=== PATIENT | female | born 1980 | race Caucasian/White ===

== ENCOUNTER 2024-04-13 03:36 | Emergency (ER) | payer OTHER, SELFPAY ==
[2024-04-13 03:41] VITALS: BP 144/96; PULSE 77; O2SAT 100; BMI 62.6
--- NOTE | 2024-04-13 03:56 | ED_ITS ---
HPI - Dizziness General Chief Complaint: Dizziness Stated Complaint: DIZZINESS Time Seen by Provider: 04/13/24 03:46 Source: patient Mode of arrival: Wheelchair History of Present Illness HPI Narrative: past history of vertigo. Woke up this AM with room spinning. finds if she tilts her head to the left the dizzy sensation is not bad. If she straightens her head it worsens. No headache or ear pain. No extremity pain or weakness Related Data Allergies Allergy/AdvReac Type Severity Reaction Status Date / Time Penicillins Allergy Severe Anaphylaxis Verified 04/13/24 03:48 vancomycin AdvReac Intermediate Redness of Verified 04/13/24 03:48 Skin acetaminophen [From [place]] AdvReac Mild Redness of Verified 04/13/24 03:48 Skin hydrocodone [From [place]] AdvReac Mild Redness of Verified 04/13/24 03:48 Skin Review of Systems ROS Status of ROS 10 or more systems reviewed and unremark able except as noted in history and below Exam Constitutional Vital Signs, click to edit/add: Last Vital Signs Pulse 77 04/13/24 03:41 Resp 18 04/13/24 03:41 BP 144/96 H 04/13/24 03:41 Pulse Ox 100 04/13/24 03:41 O2 Del Method Room Air 04/13/24 03:41 Common normals: no apparent distress, average body habitus, oriented x3, no limitations, healthy appearing, alert and well nourished [facility] Common normals: head/scalp atraumatic Other: TMs clear Eye Common normals: conjunctivae normal Respiratory Common normals: normal respiratory effort, no retractions, no use of accessory muscles and clear to auscultation bilaterally Cardio Common normals: regular rate, regular rhythm, S1 normal heart sound and S2 normal heart sound GI Common normals: Normal to inspection, nondistended, normoactive bowel sounds present, soft to palpation and non-tender Extremity Common normals: normal to inspection and full ROM Neuro Common normals: oriented x3, CN's II-XII intact bilaterally, moves all extremities and no focal motor deficits Psych Appearance: grossly normal Course Vital Signs Vital signs: Vital Signs Pulse Rate 77 04/13/24 03:41 Respiratory Rate 18 04/13/24 03:41 Blood Pressure 144/96 H 04/13/24 03:41 Pulse Oximetry 100 04/13/24 03:41 Oxygen Delivery Method Room Air 04/13/24 03:41 Pulse Rate 77 04/13/24 03:41 Respiratory Rate 18 04/13/24 03:41 Blood Pressure 144/96 H 04/13/24 03:41 Pulse Oximetry 100 04/13/24 03:41 Oxygen Delivery Method Room Air 04/13/24 03:41 MDM - Dizziness MDM Narrative Medical decision making narrative: past history of vertigo. Presents with vertiginous symptoms that resolved with treatment in the department. labs acceptable. Patient discharged home with a prescription for antivert Lab Data Labs: Lab Results 04/13/24 Range/Units 04:08 WBC 7.3 (4.0-11.0) 10^3/uL RBC 4.60 (4.20-5.40) 10^6/uL Hgb 12.5 (12.0-16.0) g/dL Hct 38.9 (36.0-48.0) % MCV 84.6 (81.0-99.0) fL MCH 27.2 (26.7-34.0) pg MCHC 32.1 (29.9-35.2) g/dL RDW 13.2 (11.0-15.0) % Plt Count 240 (150-450) 10^3/uL MPV 9.4 L (9.5-13.5) fL Neut % (Auto) 64.1 (43.0-75.0) % Lymph % (Auto) 28.2 (20.5-60.0) % [place] % (Auto) 5.7 (1.7-12.0) % Eos % (Auto) 1.8 (0.9-7.0) % Baso % (Auto) 0.1 L (0.2-2.0) % Neut # (Auto) 4.7 (1.4-6.5) 10^3/uL Lymph # (Auto) 2.1 (1.2-3.8) 10^3/uL [place] # (Auto) 0.4 (0.3-0.8) 10^3/uL Eos # (Auto) 0.1 (0.0-0.7) 10^3/uL Baso # (Auto) 0.0 (0.0-0.1) 10^3/uL Abs Immat Gran (auto) 0.01 (0.00-0.03) 10^3/uL Imm/Tot Granulo (auto) 0.1 (0.0-0.5) % Sodium 139 (136-145) mmol/L Potassium 4.0 (3.5-5.1) mmol/L Chloride 103 (98-107) mmol/L Carbon Dioxide 28.9 (21.0-32.0) mmol/L Anion Gap 11.1 BUN 8.0 (7.0-18.0) mg/dL Creatinine 0.72 (0.55-1.02) mg/dL Est GFR ( Amer) >60 (>=60) Est GFR (Non-Af Amer) >60 (>=60) BUN/Creatinine Ratio 11.1 Glucose 124 H (74-106) mg/dL Calcium 8.9 (8.5-10.1) mg/dL Discharge Plan Discharge Stand Alone Forms: Portal Instructions Chief Complaint: Dizziness Clinical Impression: Benign paroxysmal positional vertigo Patient Disposition: Home, Self-Care Print Language: Urdu Instructions: Benign Paroxysmal Positional Vertigo (ED) Additional Instructions: follow up with your doctor in the next few days for recheck Referrals: Physician,Non-Staff, MD [Primary Care Provider] - 1 week
[2024-04-13 04:14] LABS: Basophils Percent Auto 0.1 % (0.2-2.0); Eosinophils Absolute Auto 0.1 10^3/uL (0.0-0.7); Eosinophils Percent Auto 1.8 % (0.9-7.0); Hematocrit 38.9 % (36.0-48.0); Hemoglobin 12.5 g/dL (12.0-16.0); Immature Granulocytes Abs Auto 0.01 10^3/uL (0.00-0.03); Immature Granulocytes Pct Auto 0.1 % (0.0-0.5); Lymphocytes Absolute Auto 2.1 10^3/uL (1.2-3.8); Lymphocytes Percent Auto 28.2 % (20.5-60.0); Mean Corpuscular HGB Conc 32.1 g/dL (29.9-35.2); Mean Corpuscular Hemoglobin 27.2 pg (26.7-34.0); Mean Corpuscular Volume 84.6 fL (81.0-99.0); Mean Platelet Volume 9.4 fL (9.5-13.5); Monocytes Absolute Auto 0.4 10^3/uL (0.3-0.8); Monocytes Percent Auto 5.7 % (1.7-12.0); Neutrophils Absolute Auto 4.7 10^3/uL (1.4-6.5); Neutrophils Percent Auto 64.1 % (43.0-75.0); Platelet Count 240 10^3/uL (150-450); Red Cell Distribution Width 13.2 % (11.0-15.0); White Blood Count 7.3 10^3/uL (4.0-11.0)
[2024-04-13 04:24] LABS: Anion Gap 11.1; BUN Creatinine Ratio 11.1; Calcium 8.9 mg/dL (8.5-10.1); Carbon Dioxide 28.9 mmol/L (21.0-32.0); Chloride 103 mmol/L (98-107); Estimated GFR (African America >60 (>=60); Estimated GFR (Non-African Ame >60 (>=60); Glucose 124 mg/dL (74-106); Sodium 139 mmol/L (136-145)
[2024-04-13] MEDS: MECLIZINE HCL 12.5 MG TABLET 25 MG PO (04:28)
[2024-04-13] MEDS: PREDNISONE 20 MG TABLET 60 MG PO (04:28)
[2024-04-13] MEDS: LORAZEPAM 0.5 MG TABLET PO (04:29)
[2024-04-13 05:52] VITALS: BP 138/90; PULSE 75; O2SAT 99
== END 2024-04-13 05:56 | disposition home or self-care (01) ==
PROVIDERS: Emergency Provider Internal Medicine; PCP Family Medicine
DX: H81.10 Benign paroxysmal vertigo, unspecified ear (principal)
CPT/HCPCS: 36415; 80048; 85025; 99284

== ENCOUNTER 2025-10-13 11:00 | Emergency (ER) | payer OTHER, SELFPAY ==
[2025-10-13 11:12] VITALS: BP 146/93; PULSE 79; TEMP 36.8; O2SAT 99; BMI 66.2
--- OUTSIDE RECORDS SUMMARY | 2025-10-13 11:17 | XMS_ITS | Clinical Summary ---
Author Organization [facility] Address [address] [place] [address] Care Team Providers Care Rn Cardiac Rehab Name Role Phone Elio SWANN MD, Dev Pandey Primary Care Provider [phone] Allergies Active AllergyReactionsCriticalityNoted DateCommentsClarithromycinOther: See Htymzoqo37/04/2012 mouth ulcers XlnbjyrmkizmxCzswjnkmApeq14/26/3521WvgznhqyuvueVmewclmaZbvi94/04/2012Penicillins QqiimrnoemiQqdt66/04/2012 throat swells shut VancomycinOther: See Pgjirufl46/04/2012 Red man syndrome Medications * This document contains information received from the source organization and may not represent a complete record from that organization. MedicationSigDispense QuantityRefillsLast FilledStart DateEnd DateStatus TURMERIC ORAL Take 1 capsule by mouth once daily.Active CALCIUM CARB-MAG OXIDE-ZINC OX ORAL Take 1 tablet by mouth twice daily.Active vitamin B complex (B COMPLEX ORAL) Take 1 capsule by mouth once daily.Active cholecalciferol, vitamin D3, (VITAMIN D3 ORAL) Take 1 capsule by mouth twice daily. 5000 units each capsuleActive propranolol (INDERAL) 10 mg tablet Take 10 mg by mouth three times daily.Active RABEprazole (ACIPHEX) 20 mg tablet Take 20 mg by mouth once daily.Active benzonatate (TESSALON PERLE) 100 mg capsule Indications:Viral URI with coughTake 1 capsule by mouth three times a day as needed. 40 capsule 5Active tirzepatide, weight loss (ZEPBOUND) 2.5 mg/0.5 mL pen injector Indications:BMI 60.0-69.9, adult (HCC),Other fatigue,Snoring,PCOS (polycystic ovarian syndrome)Inject 2.5 mg subcutaneously one time a week. Treated for ILYA 2 mL 501/6Active Active Problems ProblemNoted DateDiagnosed DateEndometrial hyperplasia, bussertnqhm97/04/2012 Encounters * This document contains information received from the source organization and may not represent a complete record from that organization. DateTypeDepartmentCare ZbxgKwtzsawonem89/16/2025Telephone [facility] Home Delivery [address], [place] [id number] Cheryl Strak Opened In Error09/09/2025 1:00 PM EDTDistance Health BMI [facility] [address] [address] Korin Chavez MD BMI 60.0-69.9, adult (HCC) (Primary Dx); Other fatigue; Snoring; PCOS (polycystic ovarian syndrome)09/09/2025Travelfrom Last 3 Months Family History Medical HistoryRelationCommentsnegative [Other]Othernegative for breast, colon or almond grinder cancersRelationStatusCommentsOther Social History Tobacco UseTypesPacks/DayYears UsedDateSmoking Tobacco: NeverAlcohol UseStandard Drinks/WeekCommentsYes0 (1 standard drink = 0.6 oz pure alcohol)socialPHQ-2 AnswerDate RecordedPHQ-2 ljsaj554/22/2025Area Deprivation IndexAnswerDate RecordedNational Score (1-100), lower number is lower wenf107309/09/2025State Score (1-10), lower number is lower tekc731Data from: https://www.neighborhoodatlas.medicine.[facility].edu/. Last address used for trwg[address]ms[address] [facility] [facility]09/09/2025CommentsNoSex and Gender Information ValueDate RecordedSex Assigned at UqbzfVmepbl31/22/2020 10:49 AM ESTLegal Sex Efjwoc7611/02/2012 10:18 AM ESTGender ZhsddnesBrjqxy37/22/2020 10:49 AM ESTSexual KnoobqpjisuTqeevltu70/22/2020 10:49 AM EST Last Filed Vital Signs Vital SignReadingTime TakenCommentsBlood Zyhbijmc912/7002/ 11:53 AM EST Lkugs284601/18/2021 11:53 AM JZEDbmvueguegt22.9 ??C (98.5 ??F)01/18/2021 10:32 AM ESTRespiratory Qnad954301/18/2021 11:53 AM ESTOxygen Lujbudwmbv39%01/18/2021 11:53 AM ESTInhaled Oxygen Concentration--Bijmlj369.1 kg (408 lb)09/09/2025 12:57 PM IUWPtnfcz965.1 cm (5' 5 )01/18/2021 10:32 AM ESTBody Mass Index67.8901/18/2021 10:32 AM EST Plan of Treatment DateTypeDepartmentCare Team (Latest Contact Info)Pnhaqaiyjbv64/14/2026 1:30 PM ESTDistance Health BMI [facility] [address] [place], [place] [id number] Korin Chavez MD [address] [place] [address] follow upHealth MaintenanceDue DateLast DoneCommentsAnxiety Opvlgucql33/08/1999 Depression Hpuizkeoz10/08/1999HIV Bkqofgjwg68/08/1999Hepatitis B Vaccine (1 of 3 - 19+ 3-dose series)1999Cervical Cancer Ucdxmkmuy32/08/2002HPV Vaccine (1 - 3-dose SCDM series)2007Influenza Vaccine (#1), 11/13/2022Mammogram Cmqbkrbuf29/20/89793401/21/2025, 01/21/2025DTaP,Tdap,Td Vaccine (2 - Td or Tdap)Hepatitis C ScreeningCompleted 01/18/2021ovid-19 KvvlycuAwhakalvy77/08/2025, 10/20/2022, 04/13/2022, Additional history exists Procedures Procedure NamePriorityDate/TimeAssociated DiagnosisCommentsHEPATITIS C VIRUS (HCV) RNA, QUANTITATIVE PCR, PLASMA/CUVDWRyuvdco37/17/2021 11:16 AM EST from Last 3 Months or Most Recently Relevant to Health Maintenance Results * HCV QUANT RNA BY PCR (01/18/2021 11:16 AM EST)ComponentValueRef RangeTest MethodAnalysis TimePerformed AtPathologist SignatureHCV RNA by PCRHCV RNA not detected by PCR.IU/mL01/19/2021 7:35 PM ESTAv[facility] [employer] Comment: Reference Range: Negative for HCV RNA The Linear Range of this assay is 15 IU/mL to 100,000,000 IU/mL. Specimen (Source)Anatomical Location / LateralityCollection Method / Volume Collection TimeReceived Time01/18/2021 11:16 AM EST01/18/2021 1:36 PM EST Narrative Authorizing ProviderResult TypeResult StatusAlexandra Saul PA-CLABORATORY Final ResultPerforming OrganizationAddressCity/State/ZIP CodePhone Number [facility] [address] [place] [address] [facility] [address] [place] [address] from Last 3 Months or Most Recently Relevant to Health Maintenance Insurance Care Teams Team MemberRelationshipSpecialtyStart DateEnd Date Dev Ballard II, MD PCP - GeneralInternal Ohtvfcbh23/29/12
--- OUTSIDE RECORDS SUMMARY | 2025-10-13 11:17 | XMS_ITS | Clinical Summary ---
Author Organization [facility] Address [address], [address] [place] [address] Care Team Providers Care Spa Director/Finance Name Role Phone Dev Ballard MD Primary Care Provider [phone] Allergies Active AllergyReactionsCriticalityNoted DateCommentsClarithromycinOther (See Comments)02/21/2018 Mouth ulcer CefdinirOther (See Comments)04/26/2021HydromorphoneNausea And VomitingLow 02/21/2018ErythromycinNausea And QgevyhegSdr59/23/2018Fish Protein-Containing Drug QuyzblvvKabgoapp53/23/6871YwdfcgvmtueHdcdQuh60/27/2023 Facial redness, itching and burning LtdplugrzihUmdqicld92/23/2018VancomycinOther (See Comments)02/21/2018 Red man syndrome Medications MedicationSigDispense QuantityRefillsLast FilledStart DateEnd DateStatus hydroCHLOROthiazide (MICROZIDE) 12.5 MG capsule 6.25 mg08/17/2022ctive metoprolol succinate (TOPROL XL) 50 MG extended release tablet take 1 tablet by mouth once daily08/31/2022ctive VITAMIN D PO Take by mouthActive pantoprazole sodium (PROTONIX) 40 MG PACK packet Take 1 packet by mouth every morning (before breakfast)Active ketorolac (TORADOL) 10 MG tablet Take 1 tablet by mouth every 6 hours as needed for Pain 20 tablet 03/15/2023ctive Additional Information Patient not taking.Reported on 04/03/2023 pantoprazole (PROTONIX) 40 MG tablet Take 1 tablet by mouth daily03/22/2023ctive Active Problems ProblemNoted DateDiagnosed DateEndometrial hpdivrbzppk82/04/2012Right ovarian cyst Family History Medical HistoryRelationNameCommentsUterine CancerSisterRelationNameStatus CommentsBrotherAliveFatherDeceasedMaternal GrandfatherDeceasedMaternal GrandmotherDeceasedMotherAlivePaternal GrandfatherDeceasedPaternal Grandmother DeceasedSisterAlive Social History Tobacco UseTypesPacks/DayYears UsedDateSmoking Tobacco: NeverSmokeless Tobacco: Never Tobacco Cessation:Counseling Given: Not Answered Alcohol UseStandard Drinks/WeekCommentsYes0 (1 standard drink = 0.6 oz pure alcohol)socialInterpersonal Safety Domain Source: IP Abuse ScreeningAnswerDate RecordedRead-Only, Retired: Physical ZfoagZlqtwg09/14/2023Read-Only, Retired: Verbal MyfkjWrugae70/14/2023Read-Only, Retired: Emotional imvtcQoxggu43/14/2023 Read-Only, Retired: Financial QmlznQqmpdd45/14/2023Read-Only, Retired: Sexual qikmnJgloqa49/14/2023CommentsNoSex and Gender InformationValueDate RecordedSex Assigned at BirthNot on fileLegal IrfRwhels79/10/2013 6:51 PM EST Gender IdentityNot on fileSexual OrientationNot on file Last Filed Vital Signs Vital SignReadingTime TakenCommentsBlood Jodxyidz767/6805 9:44 AM EDT Fzdwe533303/15/2023 10:45 AM RIYCedzgzftgck75.3 ??C (97.3 ??F)03/15/2023 9:40 AM EDTRespiratory Gxht653103/15/2023 10:45 AM EDTOxygen Awwzuekeec61%03/15/2023 10:45 AM EDTInhaled Oxygen Concentration--Twyizk479.6 kg (376 lb)04/03/2023 9:44 AM XNVIlpwrr913.1 cm (5' 5 )04/03/2023 9:44 AM EDTBody Mass Index62.5705 9:44 AM EDT Plan of Treatment Health MaintenanceDue DateLast DoneCommentsDepression Omloee6612/09/1992Varicella vaccine (1 of 2 - 13+ 2-dose series)1993HIV kcyack8812/09/1995Hepatitis C xxrnkg1212/09/1998Hepatitis B vaccine (1 of 3 - 19+ 3-dose series)1999Breast cancer vipkjy571360Ldaubb00/08/2021Flu vaccine (#1)/ COVID-19 Vaccine (2 - season)2DTaP/Tdap/Td vaccine (2 - Td or Tdap)HPV vaccine (No Doses Required)Completed Hepatitis A vaccineAged OutNo longer eligible based on patient's age to complete this topicHib vaccineAged OutNo longer eligible based on patient's age to complete this topicMeningococcal (ACWY) vaccineAged OutNo longer eligible based on patient's age to complete this topicMeningococcal B vaccineAged OutNo longer eligible based on patient's age to complete this topicPneumococcal 0-49 years VaccineAged OutNo longer eligible based on patient's age to complete this topic Polio vaccineAged OutNo longer eligible based on patient's age to complete this topic Insurance Advance Directives * Full Code (Latest Code Status on File) Date ActivatedDate InactivatedComments03/15/2023 6:20 AM03/15/2023 1:09 PM * Full Code Date ActivatedDate InactivatedComments01/26/2019 10:40 AM01/26/2019 5:25 PM Care Teams Team MemberRelationshipSpecialtyStart DateEnd Date Dev Ballard MD [address] [facility] [address] [place] [address] PCP - GeneralInternal Medicine02/27/18
--- OUTSIDE RECORDS SUMMARY | 2025-10-13 11:17 | XMS_ITS | Clinical Summary ---
Author Organization [facility] Address [address] [place] [address] Care Team Providers Care Histotechnician Name Role Phone Unavailable Primary Care Provider Unavailabl e Social History Tobacco UseTypesPacks/DayYears UsedDateSmoking Tobacco: Never Assessed CommentsUnknownSex and Gender InformationValueDate RecordedSex Assigned at Not on fileLegal YccGmpkoo82/01/2023 8:34 PM EDTGender IdentityNot on fileSexual OrientationNot on file Last Filed Vital Signs Vital SignReadingTime TakenCommentsBlood Xdnbelhh746/8207 12:00 PM EDT Pulse--Temperature--Respiratory Rate--Oxygen Saturation--Inhaled Oxygen Concentration--Bouare167 kg (349 lb)06/06/2021 12:00 PM NQVBlcmeh130.1 cm (5' 5 )06/06/2021 12:00 PM EDTBody Mass Index58.0806/06/2021 12:00 PM EDT Plan of Treatment Not on file
--- OUTSIDE RECORDS SUMMARY | 2025-10-13 11:17 | XMS_ITS | Encounter Summary ---
Author Organization [facility] tem Address [id number] [address] [place] [address] Care Team Providers Care Roof Bolting Coal Miner Name Role Phone Viv Robles Primary Care Provider + Reason for Visit * ReasonCommentsMed Refill Encounter Details DateTypeDepartmentCare Team (Latest Contact Info)Hkzoncubypz97/05/2025Refill [facility] [address] [place] [address] Marco Antonio Blackmon, DO [address] [place] [address] Social History Tobacco UseTypesPacks/DayYears UsedDateSmoking Tobacco: NeverSmokeless Tobacco: NeverAlcohol UseStandard Drinks/WeekCommentsNot Currently0 (1 standard drink = 0.6 oz pure alcohol)Social Connection and Isolation PanelAnswerDate RecordedIn a typical week, how many times do you talk on the phone with family, friends, or neighbors?More than three times a week12/05/2022How often do you get together with friends or relatives?Twice a week12/05/2022How often do you attend jewish or zoroastrian services?Never12/05/2022o you belong to any clubs or organizations such as jewish groups, unions, fraternal or athletic groups, or school groups?No 12/05/2022How often do you attend meetings of the clubs or organizations you belong to?Never12/05/2022re you , , , , never , or living with a partner?Toyhjms7312/05/2022UDIT-CAnswerDate RecordedQ1: How often do you have a drink containing alcohol?Never12/05/2022Q2: How many drinks containing alcohol do you have on a typical day when you are drinking? Patient does not drink12/05/2022Q3: How often do you have six or more drinks on one occasion?Never12/05/2022Overall Financial Resource Strain (CARDIA)AnswerDate RecordedHow hard is it for you to pay for the very basics like food, housing, medical care, and heating?Not hard at all12/21/2024PHQ-2AnswerDate RecordedTotal Wmazd393Finmckay-[facility] [place] of Occupational Health - Occupational Stress QuestionnaireAnswerDate RecordedDo you feel stress - tense, restless, nervous, or anxious, or unable to sleep at night because yourmind is troubled all the time - these days?To some uxmyhn2812/05/2022Exercise Vital SignAnswerDate Recorded On average, how many days per week do you engage in moderate to strenuous exercise (like a brisk walk)?4 days12/31/2024On average, how many minutes do you engage in exercise at this level?20 min12/31/2024PRAPARE - TransportationAnswer Date RecordedIn the past 12 months, has lack of transportation kept you from medical appointments or from getting medications?No12/21/2024In the past 12 months, has lack of transportation kept you from meetings, work, or from getting things needed for daily living?No12/21/2024Housing InstabilityAnswerDate RecordedAre you worried or concerned that in the next two months you may not have stable housing that you own, rent or stay in as a part of a household?No 12/21/2024hildcareAnswerDate RecordedDo problems getting children's entertainer make 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 work or study?No12/05/2022EmploymentAnswerDate RecordedDo you need help finding a local career center and/or a training program?No 12/05/2022Hunger ScreeningAnswerDate RecordedWithin the past 12 months we worried whether our food would run out before we got money to buy more.Never True12/24/2024Within the past 12 months the food we bought just didn't last and we didn't have money to get more.Never True12/24/2024Purpose - LifeAnswerDate RecordedI have a purpose and direction in my life.Agree12/05/2022EducationAnswer Date RecordedWhat is the highest level of school you have completed or the highest degree you have received?Associate degree: academic ngocgtx7912/05/2022 CommentsNoSex and Gender InformationValueDate RecordedSex Assigned at BirthNot on fileLegal XyzWzlcgp15/06/2015 11:50 AM EDTGender IdentityNot on file Sexual OrientationNot on filedocumented as of this encounter Miscellaneous Notes * Telephone Encounter - Marco Antonio Blackmon DO - 10/06/2025 2:45 PM EST Rx sent in. She is overdue for an appointment. Please set up * Telephone Encounter - Danielle Kat CMA - 10/06/2025 2:45 PM EST Patient is scheduled for 12/23 at 1:40pm documented in this encounter Plan of Treatment DateTypeDepartmentCare Team (Latest Contact Info)Cwywsbygpwr46/22/2026 1:40 PM ESTOffice Visit [facility] [address] [place] [id number] Viv Robles, WIRE INSERTER-MVA STILL OPERATOR [address] [place] [address] documented as of this encounter Goals GoalPatient Goal TypeAssociated ProblemsRecent ProgressPatient-Stated?Author Daly Anderson dc, LSW Note: Evaluation of progress towards goal: Jennifer molina transition from hospital to home with family support. documented as of this encounter Visit Diagnoses Not on filedocumented in this encounter Additional Health Concerns AssessmentNoted TimePHQ-9 Depression Total Score: 3:01 PM ESTA Body Mass Index follow-up plan has been documented for the qmommdk4512/21/2024 12:37 PM ESTdocumented as of this encounter Care Teams Team MemberRelationshipSpecialtyStart DateEnd Date Viv Robles, WIRE INSERTER-MVA STILL OPERATOR [address] [place] [address] PCP - GeneralFamily Ntsbklyv12/6/25documented as of this encounter
--- OUTSIDE RECORDS SUMMARY | 2025-10-13 11:17 | XMS_ITS | Clinical Summary ---
Author Organization [employer] tem Address [id number] [address] [place] [address] Care Team Providers Care Rehab/Pre Vocational Counselor Name Role Phone Margaret Viv Gonzalez APRN-INSTITUTE SCIENTIST Primary Care Provider + Allergies Active AllergyReactionsCriticalityNoted DateCommentsClarithromycinOther (See Comments)Low07/06/2021 Mouth sores CefdinirOther (See Comments)04/26/20218262HtqjcfbbmxqrtEoruulxvKgr33/03/2021 GzuoepolmlxbCpkglylxWjl28/05/2021rythromycin ZusxEmllBts38/25/2024Fish Containing MfgvnpjtYiifxjvdFsnp80/03/1382CdrekvqjnrwQpmwVzq25/27/2023 Facial redness, itching and burning TfibkogmvUproTrx86/25/7355RgiyefniadxVcgivspnHuvmau47/03/2021VancomycinSwelling Jaugyr0707/04/2021 Medications MedicationSigDispense QuantityRefillsLast FilledStart DateEnd DateStatus loratadine (CLARITIN) 10 mg tablet Take 1 tablet (10 mg total) by mouth in the morning.Active ibuprofen (ADVIL,MOTRIN) 200 mg tablet Take 1 tablet (200 mg total) by mouth every 6 (six) hours as needed for pain. Active prednisoLONE acetate (PRED FORTE) 1 % ophthalmic suspension 5Active evkcbwzn-taukcwvhte-zmledmlwg (Neosporin) ophthalmic ointment Has not picked it up5Active valACYclovir (VALTREX) 1000 mg tablet Has not taken yet5Active semaglutide, weight loss, (WEGOVY) 0.25 mg/0.5 mL pen injector Indications:Class 3 severe obesity due to excess calories without serious comorbidity with body mass index (BMI) of 60.0 to 69.9 in adult ([facility])Inject 0.5 mL (0.25 mg total) under the skin every 7 days. 2 mL 5Active hydrocortisone (HYTONE) 2.5 % cream Apply 1 Application topically in the morning and 1 Application before bedtime. 30 g 5Active ketoconazole (NIZORAL) 2 % shampoo Apply 1 Application topically 2 (two) times a week. Apply to damp skin, lather, leave on 5 minutes,and rinse 120 mL 5Active metoprolol succinate XL (TOPROL XL) 50 mg 24 hr tablet Take 1 tablet (50 mg total) by mouth in the morning. 90 tablet 5Active hydroCHLOROthiazide (HYDRODIURIL) 12.5 mg tablet Take 1 tablet by mouth every morning. 30 tablet 5Active hydroCHLOROthiazide (HYDRODIURIL) 12.5 mg tablet Take 1 tablet by mouth every morning. 30 tablet Discontinued Active Problems ProblemNoted DateDiagnosed DateHerpes zoster without bqofugxfraww52/30/2025IBS (irritable bowel syndrome)st degree AV block01/24/2023H/O: kqopiscrymiw37/23/2023Essential clgffezdxrkj13/01/0034Txbvmhwyjlz24/31/2023Class 3 severe obesity due to excess calories without serious comorbidity with body mass index (BMI) of 60.0 to 69.9 in adult2Right ovarian cyst09/04/2022 Fwkwvvkjj53/05/2021Gastroesophageal reflux xuruwxv7604/26/2021ifficulty qcwnvldoao35/02/2021Fluttering heart01/19/2021Osteoarthritis of knee12/02/2020 Mild ppplrishyo43/18/0820Sdoazfesobk33/18/2020Skin sensation disturbance 12/04/2019Edema of left lower qerjmkqwq96/27/2019Tonsillar yhqohnhqanc67/12/2019 Generalized anxiety qszcecfw54/10/2019Metabolic syndrome X05/11/2019Severe obesity (BMI >= 40)01/06/2019Atrophic veqnmgapu99/12/2018Lumbar radiculopathy 05/23/2018Mononeuropathy of lower bbedsnztf31/26/2018Endometrial hyperplasia 11/04/2012 Resolved Problems ProblemNoted DateDiagnosed DateResolved DatePneumonia due to COVID-19 virus / Encounters DateTypeDepartmentCare CxvuNwhzmkzcjie41/05/2025Refill [facility] [address] [place] [address] Marco Antonio Blackmon, 09/05/2025Refill [facility] [address] [place] [address] Marco Antonio Blackmon, 07/26/2025Telephone [facility] [address] [place] [address] Sheyla Brumfield CMA 07/26/2025Refill [facility] [address] [place] [address] Danielle Kat CMA from Last 3 Months Immunizations ImmunizationAdministration DatesNext DueCovid-19, Mrna, Lnp-s, Bivalent, Pf, 50mcg/0.5ml or 25mcg/0.25ml10/20/2022Influenza, Injectable, Mdck, Preservative Free, Quad11/13/2022Influenza, Injectable, quadrivalent (PF)09/12/2023Rabies - Im Diploid Cell Njfaszw4807/02/20200525PVEJ-HPK-8 (COVID-19) Vaccine, Unspecified 10/20/2022Tdap03/18/2018 Family History Medical HistoryRelationNameCommentsAnxiety disorderBrotherAsthmaBrother DepressionBrotherDiabetesBrotherHeart diseaseBrotherWolff Parkinson White syndromeBrotherAlcohol abuseFatherKidney diseaseFatherLiver diseaseFatherObesity FatherAnxiety disorderMotherArthritisMotherAtrial fibrillationMotherDepression MotherHeart diseaseMotherObesityMotherEndometrial cancerSisterAlisonI believe a hysterectomy fixed thisEndometriosisSisterAlisonHeart diseaseSisterAlisonHeart murmurSisterAlisonBreast cancerNeg HxRelationNameStatusCommentsBrotherMaternal HalfFatherMotherSisterAlisonMaternal Half Social History Tobacco UseTypesPacks/DayYears UsedDateSmoking Tobacco: NeverSmokeless Tobacco: Never Tobacco Cessation:Counseling Given: Not Answered Alcohol UseStandard Drinks/WeekCommentsNot Currently0 (1 standard drink = 0.6 oz pure alcohol)Social Connection and Isolation PanelAnswerDate RecordedIn a typical week, how many times do you talk on the phone with family, friends, or neighbors?More than three times a week12/05/2022How often do you get together with friends or relatives?Twice a week12/05/2022How often do you attend muslim or cheondoism services?Never12/05/2022o you belong to any clubs or organizations such as muslim groups, unions, fraternal or athletic groups, or school groups?No 12/05/2022How often do you attend meetings of the clubs or organizations you belong to?Never12/05/2022re you , , , , never , or living with a partner?Iampcpb8012/05/2022UDIT-CAnswerDate RecordedQ1: How often do you have a [...] care, and heating?Not hard at all12/21/2024PHQ-2AnswerDate RecordedTotal Udxir803Finse[facility] Occup[facility] - Occupational Stress QuestionnaireAnswerDate RecordedDo you feel stress - tense, restless, nervous, or anxious, or unable to sleep at night because yourmind is troubled all the time - these days?To some qkbwmi6312/05/2022Exercise Vital SignAnswerDate Recorded On average, how many [...] of a household?No 12/21/2024hildcareAnswerDate RecordedDo problems getting child psychology teacher make 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 work [...] highest degree you have received?Associate degree: academic mwwrjax0212/05/2022 CommentsNoSex and Gender InformationValueDate RecordedSex Assigned at BirthNot on fileLegal AbuTqrwpp72/06/2015 11:50 AM EDTGender IdentityNot on file Sexual OrientationNot on file Last Filed Vital Signs Vital SignReadingTime TakenCommentsBlood Uhhpzlew403/9001/ 12:07 PM EST Haudy6984 9:59 AM LWQMcovhibvzow01 ??C (98.6 ??F)01/29/2025 9:59 AM EST Respiratory Pqrn791001/29/2025 9:59 AM ESTOxygen Eeffkpfotp50%01/29/2025 9:59 AM ESTInhaled Oxygen Concentration--Xemxcn631.4 kg (402 lb 3.2 oz)01/29/2025 9:59 AM WITGapmfc782.1 cm (5' 5 )01/29/2025 9:59 AM ESTBody Mass Index66.9301/29/2025 9:59 AM EST Plan of Treatment DateTypeDepartmentCare Team (Latest Contact Info)Xnemsywvvzi32/22/2026 1:40 PM ESTOffice Visit [facility] [address] [place] [phone] Viv Robles, BEEF SELECTOR-INSTITUTE SCIENTIST [address] [place] [address] Health MaintenanceDue DateLast DoneCommentsPap Smear2001Influenza Vaccine 510/11/2023, 11/13/2022dult BMI Follow Up Plan/ Depression Inwayjfiw70Mammogram/, 12/05/2021, 12/05/2021dult BMI Ivjlnqeih29/Tobacco Screening DTaP,Tdap and Td Vaccines (2 - Td or Tdap)03/18/2028 03/18/2018COVID-19 PuwixdjJhhsepmrisxh08/12/2023, 10/20/2022, 10/20/2022, Additional history exists Goals GoalPatient Goal TypeAssociated ProblemsRecent ProgressPatient-Stated?Author Daly [place] dc, LSW Note: Evaluation of progress towards goal: Jennifer molina transition from hospital to home with family support. Medical Devices Not on file Procedures Procedure NamePriorityDate/TimeAssociated DiagnosisCommentsMAMM SCREENING BILATERAL W WMAFgvrcdr38/20/2025 8:39 AM EST Encounter for screening mammogram for malignant neoplasm of breast from Last 3 Months or Most Recently Relevant to Health Maintenance Results * Mammography screening bilateral with CAD (01/21/2025 8:39 AM EST)Anatomical RegionLateralityModalityBreastBilateralMammographySpecimen (Source)Anatomical Location / LateralityCollection Method / VolumeCollection TimeReceived Time 01/21/2025 9:59 AM EST Narrative 01/21/2025 10:02 AM EST OLGA M AISHA 1980 [id number] EXAM: MAMM SCREENING BILATERAL W CAD, 01/21/2025 8:15 AM CLINICAL INDICATIONS: Screening, Encounter for screening mammogram for malignant neoplasm of breast COMPARISON: 12/05/2021 TECHNIQUE: Bilateral digital tomosynthesis MLO and CC views of the breasts were obtained, with creation of synthetic 2D views. Computer aided detection was utilized. FINDINGS: There are scattered areas of fibroglandular density. There are no suspicious masses, calcifications, or areas of architectural distortion. IMPRESSION: No mammographic evidence of malignancy. BI-RADS: BI-RADS 1 - Negative RECOMMENDATION: ??Routine screening mammogram in 1 year. RISK ASSESSMENT: TC Lifetime risk: 6.7%. The patient's reported personal and family medical history was used calculate their Tyrer-Cuzick lifetime risk of malignancy. Scores less than 20% are not considered high risk per ACR guidelines and patient should continue with the above recommendation. Finalized by Nenita Paz MD on 01/21/2025 10:02 AM 1 b MAMM 1 YR FDA Accredited Performing Facility: [facility] [address] [facility] [id number] Procedure Note Nenita Paz MD - 01/21/2025 OLGA LEONARD 1980 [id number] EXAM: MAMM SCREENING BILATERAL W CAD, 01/21/2025 8:15 AM CLINICAL INDICATIONS: Screening, Encounter for screening mammogram formalignant neoplasm of breast COMPARISON: 12/05/2021 TECHNIQUE: Bilateral digital tomosynthesis MLO and CC views of the breastswere obtained, with creation of synthetic 2D views. Computer aideddetection was utilized. FINDINGS: There are scattered areas of fibroglandular density. There are no suspicious masses, calcifications, or areas of architectural distortion. IMPRESSION: No mammographic evidence of malignancy. BI-RADS: BI-RADS 1 - Negative RECOMMENDATION: Routine screening mammogram in 1 year. RISK ASSESSMENT: TC Lifetime risk: 6.7%. The patient's reported personal and family medical history was usedcalculate their Tyrer-zi lifetime risk of malignancy. Scores less than20% are not considered high risk per ACR guidelines and patient shouldcontinue with the above recommendation. Finalized by Nenita Paz MD on 01/21/2025 10:02 AM 1 b MAMM 1 YR FDA Accredited Performing Facility: [facility] [address] [facility] [address] Authorizing ProviderResult TypeResult StatusDennis G Mclean Hospitalhandy DOIMG MAMMOGRAPHY ORDERABLESFinal Result from Last 3 Months or Most Recently Relevant to Health Maintenance Insurance Advance Directives * Full Code (Latest Code Status on File) Date ActivatedDate InactivatedComments07/05/2021 11:56 PM07/14/2021 5:48 PM Care Teams Team MemberRelationshipSpecialtyStart DateEnd Date Viv Robles, BEEF SELECTOR-INSTITUTE SCIENTIST [address] [place] [address] [facility] - [facility] Wcoxrpcg12/6/25
--- OUTSIDE RECORDS SUMMARY | 2025-10-13 11:32 | XMS_ITS | CCD ---
Author Organization [facility] CliniSymt Care Team Providers Care Inspection Manager Name Role Phone Dean Rizzo Unavailable Dev Ballard II Primary Care Provider Katarina Plata Unavailable DO Marco Antonio Munguia Primary Care Provider DO Dean Rizzo Attending Provider EZRA, DR MARCO ANTONIO Coker Primary Care Unavailable MARLY MCKEON Attending Unavailable MARLY MCKEON Admitting Unavailable EZRA, DR MARCO ANTONIO Coker Primary Care Unavailable PAULETTE MARIE Consulting Unavailable PAULETTE MARIE Attending Unavailable PAULETTE MARIE Admitting Unavailable SHANNAN DEE Consulting Unavailable EZRA, DR MARCO ANTONIO Coker Primary Care Unavailable PAULETTE MARIE Admitting Unavailable SHERWIN, DR FRAZIER Consulting Unavailable PAULETTE MARIE Attending Unavailable GUICHO PUENTES Consulting Unavailable SUNITA SANDERS Attending Unavailab kathleen FISHER, DR ZULEYKA Hernandez Consulting Unavailable SUNITA SANDERS Admitting Unavailab kathleen MUNGUIA, DR MARCO ANTONIO Coker Primary Care Unavailable SUNITA SANDERS Consulting Unavailab kathleen MUNGUIA, DR MARCO ANTONIO Coker Primary Care Unavailable DEAN RIZZO JR Consulting Unavailable DEAN RIZZO JR Attending Unavailable DEAN RIZZO JR Admitting Unavailable DEAN ANAYA Consulting Unavailable Dve Ballard MD Primary Care Provider SUNITA WOODY Referring Unavail able DEV BALLARD Primary Care Unavailable DEV BALLARD Primary Care Unavailable SUNITA WOODY Referring Unavail able SUNITA WOODY Admitting Unavail able SUNITA WOODY Attending Unavail able DEV BALLARD Primary Care Unavailable Amy Phipps Unavailable XIMENA THOMPSON Referring Unavailable FURLONG, MARCO ANTONIO G Primary Care Unavailable Furlong DO, Marco Antonio G Primary Care Provider [phone] FURLONG, MARCO ANTONIO G Primary Care Unavailable SARA DOS SANTOS Attending Unavailable RAYASARA MAXWELL Attending Unavailable RAYASARA MAXWELL H Referring Unavailable FURLONG, MARCO ANTONIO G Primary Care Unavailable FURLONG, MARCO ANTONIO G Primary Care Unavailable ZACHARY MOHAN Attending Unavailable ANGELLA PADILLA Attending Unavailable ANGELLA PADILLA Referring Unavailable FURLONG, MARCO ANTONIO G Primary Care Unavailable FURLONG, MARCO ANTONIO G Primary Care Unavailable MADELINE PARRISH Attending Unavailable FURLONG, MARCO ANTONIO G Attending Unavailable FURLONG, MARCO ANTONIO G Referring Unavailable FURLONG, MARCO ANTONIO G Primary Care Unavailable MARLY MCKEON Attending Unavailable FURLONG, MARCO ANTONIO G Referring Unavailable FURLONG, MARCO ANTONIO G Primary Care Unavailable XIMENA THOMPSON Attending Unavailable FURLONG, MARCO ANTONIO G Referring Unavailable FURLONG, MARCO ANTONIO G Primary Care Unavailable FURLONG, MARCO ANTONIO G Attending Unavailable FURLONG, MARCO ANTONIO G Referring Unavailable FURLONG, MARCO ANTONIO G Primary Care Unavailable FURLONG, MARCO ANTONIO G Attending Unavailable FURLONG, MARCO ANTONIO G Referring Unavailable FURLONG, MARCO ANTONIO G Primary Care Unavailable FURLONG, MARCO ANTONIO G Attending Unavailable FURLONG, MARCO ANTONIO G Referring Unavailable FURLONG, MARCO ANTONIO G Primary Care Unavailable CASIMIRO WASHINGTON Attending Unavailable FURLONG, MARCO ANTONIO G Referring Unavailable FURLONG, MARCO ANTONIO G Primary Care Unavailable MARLY MCKEON Attending Unavailable FURLONG, MARCO ANTONIO G Referring Unavailable FURLONG, MARCO ANTONIO G Primary Care Unavailable FURLONG, MARCO ANTONIO G Attending Unavailable FURLONG, MARCO ANTONIO G Referring Unavailable FURLONG, MARCO ANTONIO G Primary Care Unavailable FURLONG, MARCO ANTONIO G Referring Unavailable FURLONG, MARCO ANTONIO G Primary Care Unavailable MARLY MCKEON Attending Unavailable FURLONG, MARCO ANTONIO G Referring Unavailable FURLONG, MARCO ANTONIO G Primary Care Unavailable Furlong DO, Marco Antonio G Primary Care Provider Elio SWANN MD, Daniel B Primary Care Provider Furlong Marco Antonio Primary Care Provider Tyra Enamorado APRN Attending Provider [phone] Tyra Enamorado Attending Unavailable Tyra Enamorado Admitting Unavailable Marco Antonio Munguia Primary Care Unavailable Keshia Tellez APRN Attending Provider [phone] DEV BALLARD II Primary Care Unavailable WHITNEY MAGGIE Attending Unavailable DEBBI LEVIN Attending Unavailable DEV BALLARD II Primary Care Unavailable PORTIA ANAYA Attending Unavailable DEV ABLLARD II Primary Care Unavailable Zahandy Marco Antonio Primary Care Provider Allergies Allergy ClassificationReported Allergen(s)Allergy TypeDate of OnsetReaction(s) Facility (20 sources)Clarithromycin; Translations: [CLARITHROMYCIN]Drug Wzmhdcl19-74-9522 Other: See Comments, Other (See Comments)[facility] Work Phone: (20 sources)Erythromycin; Translations: [ERYTHROMYCIN]Drug Dppwlfh95-41-6003 Vomiting, Nausea And Vomiting, RashM[facility]letown [facility] (20 sources)HYDROmorphone; Translations: [HYDROMORPHONE]Drug Bxzcwon03-35-5233 Vomiting, [facility]itingM[facility] (16 sources)Penicillin GDrug Cdryxyr20-44-4495Xvfsdvg, Unknown [facility] (20 sources)Vancomycin; Translations: [VANCOMYCIN]Drug Ximfpbt75-03-4124Yomji: See Comments, Other (See Comments), [facility]ellingM[facility] (20 sources)Penicillins; Translations: [PENICILLINS]Drug Hiqwrzt59-52-2008 Anaphylaxis, [facility]own [facility] (12 sources)erythromycin base; Translations: [Erythromycin Base]Allergy to -58-8678Ropeoys [facility] (20 sources)Fish Containing Products; Translations: [FISH CONTAINING PRODUCTS] Allergy to icicekmgw90-53-2131FolauuvySfydfrpjuMagruder Memorial Hospital (2 sources)ClarithromycinDrug Aqzquzy09-85-1350Vab [facility] Repository (2 sources)HYDROmorphoneDrug Nofwadt34-55-6301Nct [facility] Repository (2 sources)PenicillinDrug Kyympbq55-50-1817Ghv [facility] Repository (1 source)ShellfishDrug allergy (disorder)31-65-7499Ypf [facility] Repository (2 sources)VancomycinDrug Wambjmw42-76-4298YjgKet[facility] (20 sources)cefdinir; Translations: [CEFDINIR]Drug Dbjbduu48-92-2903Rzakr (See Comments)[facility] [employer] [facility] (3 sources)FishPropensity to adverse reactions to vciw16-77-9914JngdggpuZTKBath Community Hospital Work Phone: (1 source)Acetaminophen / HYDROcodoneDrug AllergyhivesNort [employer] Other (20 sources)HYDROcodone; Translations: [HYDROCODONE]Drug Ybplokx16-93-3557Phsp [facility] Repository (7 sources)Acetaminophen; Translations: [acetaminophen]Drug Tibitpz83-40-2116 [facility] (20 sources)Ketorolac; Translations: [KETOROLAC]Drug Kvrsdqf67-18-2530SzcqMiami Valley Hospital (8 sources)PenicillinsPropensity to adverse reactions to ybek81-64-9296Gtirbhiu, AnaphylaxisSt. Albans HospitalDome[facility] (1 source)ClarithromycinDrug Ctalard90-68-6232OfixijyskSelect [facility] (1 source)HYDROmorphoneDrug Vyswoqf98-13-0048VaoojllunSelect Medical Specialty Hospital [facility] [place] (1 source)PenicillinDrug Pwhozyq04-20-8026FctjuntsmSelect Medical Specialty [facility] [place] (1 source)PenicillinsDrug allergy (disorder)45-59-8017AzoravhfhSelect Medical [facility]ty [facility] [place] (1 source)VancomycinDrug Ortypem94-52-7662JwzoaanxfSelect Medical [facility]ty [facility] [place] Medications Current Medications MedicationDrug Class(es)DatesSig (Normalized)Sig (Original)acetaminophen 325 mg / HYDROcodone bitartrate 5 mg oral tablet (1 source)Opioid AgonistStart: 03-15-2023 End: 26-58-3543HMTCOyxfacw-acetaminophen (NORCO) 5-325 MG per tablet Indications: Post-op pain Take 1 tablet by mouth every 6 hours as needed for Pain for up to 5 days. Intended supply: 5 days. Take lowest dose possible to manage pain Max Daily Amount: 4 tablets 6 tablet 0 03/15/2023 03/20/2023 Active [id number] 200 actuat albuterol 0.09 mg/actuat metered dose inhaler (4 sources)beta2-Adrenergic AgonistStart: 23-58-2684Sgjbrrpdn Sulfate 90 mcg/actuation HFA aerosol inhaler Active 2 INH INHALATION EVERY 4-6 HOURS as ne eded for shortness of breath or wheezing 6.7 June 28, 2025 12:00am Complies with drug therapyascorbic acid 1000 mg oral tablet (1 source)Vitamin Ctake 1 tablet by mouth every twenty-four hoursVitamin C 1000 MG 1 tablet Orally Once a day Activebacitracin 0.4 unt/mg / neomycin 0.0035 mg/mg / polymyxin b 10 unt/mg ophthalmic ointment (12 sources)Aminoglycoside Antibacterial, Polymyxin-class AntibacterialStart: 81-60-9396wnehynkp-bacitracin-polymyxin (Neosporin) ophthalmic ointment Has not picked it up 12/24/2024 ActiveCALCIUM CARB-MAG OXIDE-ZINC OX ORAL (2 sources)take 1 tablet by mouth twice dailyCALCIUM CARB-MAG OXIDE-ZINC OX ORAL Take 1 tablet by mouth twice daily. Activetake 1 tablet by mouth twice daily CALCIUM CARB-MAG OXIDE-ZINC OX ORAL Take 1 tablet by mouth twice daily. 0 Active Comment on above:Take 1 tablet by mouth twice daily.calcium chloride 0.0014 meq/ml / potassium chloride 0.004 meq/ml / sodium chloride 0.103 meq/ml / sodium lactate 0.028 meq/ml injectable solution (2 sources)Start: 78-13-9988qeyzjepj ringers IV soln infusioncefdinir 300 mg oral capsule (1 source)Cephalosporin AntibacterialStart: 51-77-9145yvwr 1 capsule by mouth every twelve hoursCefdinir 300 mg capsule Active 300 MG PO Every 12 hours 20 10 July 13, 2025 12:00am Complies with drug therapycholecalciferol, vitamin D3, (VITAMIN D3 ORAL) (2 sources)take 1 capsule by mouth twice dailycholecalciferol, vitamin D3, (VITAMIN D3 ORAL) Take 1 capsule by mouth twice daily. 5000 units eachcapsule Activetake 1 capsule by mouth twice dailycholecalciferol, vitamin D3, (VITAMIN D3 ORAL) Take 1 capsule by mouth twice daily. 5000 units eachcapsule 0 Active Comment on above:Take 1 capsule by mouth twice daily. 5000 units each capsule dicyclomine hydrochloride 20 mg oral tablet (2 sources)AnticholinergicStart: 82-38-2209aslb 1 tablet by mouth every six hoursDicyclomine HCl 20 MG 1 tablet Orally qid for 30 day(s) Mar, Active hydroCHLOROthiazide 12.5 mg oral tablet (20 sources)Thiazide DiureticStart: 09-05-2025 End: 64-37-6887zrzc 1 tablet by mouth once daily in the morning hydroCHLOROthiazide (HYDRODIURIL) 12.5 mg tablet Take 1 tablet by mouth every morning. 30 tablet 10/06/2025 ActiveStart: 11-21-2023 End: 21-66-5662zvxy 1 tablet by mouth once daily in the morning hydroCHLOROthiazide (HYDRODIURIL) 12.5 mg tablet Take 1 tablet (12.5 mg total) by mouth every morning. 30 tablet 07/26/2025 09/05/2025 DiscontinuedStart: 66-24-6677yipccUGCJPDcuykciom (MICROZIDE) 12.5 MG capsule 6.25 mg 0 08/17/2022 ActiveStart: 01-31-2022 End: 24-90-1973wkml 1 capsule by mouth once dailyHydrochlorothiazide 12.5 mg capsule Discontinued 12.5 MG PO Daily January 31, 2022 1:00am June 5:39pmtake 1 tablet by mouth every twenty-four hourshydroCHLOROthiazide 12.5 MG 1 tablet in the morning Orally Once a day Activehydrocortisone 25 mg/ml topical cream (13 sources)CorticosteroidStart: 99-56-7158mlbshxwfczzfno (HYTONE) 2.5 % cream Apply 1 Application topically in the morning and 1 Application before bedtime. 30 g 01/29/2025 ActiveStart: 78-45-7245Wwklpd-HC 2.5 % 1 application Externally Twice a day for 14 days Jun, Not-Takingibuprofen 200 mg oral tablet (14 sources)Nonsteroidal Anti-inflammatory Drugtake 1 tablet by mouth every six hours as needed for painibuprofen (ADVIL,MOTRIN) 200 mg tablet Take 1 tablet (200 mg total) by mouth every 6 (six) hours asneeded for pain. Active ketoconazole 20 mg/ml medicated shampoo (20 sources)Azole AntifungalStart: 20-48-4509lmwrmkscudct (NIZORAL) 2 % shampoo Apply 1 Application topically 2 (two) times a week. Apply to damp skin, lather, leave on 5 minutes, and rinse 120 mL 1 03/01/2025 ActiveStart: 08-13-2024 End: 21-98-2494davixwluwzya 1 % shampoo Apply 1 Application topically 2 (two) times a week for 90 days. 125 mL 1 08/13/2024 11/11/2024 ActiveStart: 12-19-2023 End: 06-53-6768gsyeerevkbgu (NIZORAL) 2 % shampoo Apply 1 Application topically 2 (two) times a week. Apply to damp skin, lather, leave on 5 minutes, and rinse 120 mL 1 12/19/2023 07/27/2024 Discontinued (Therapy completed)Start: 12-19-2023 ketoconazole (NIZORAL) 2 % shampoo Apply 1 Application topically 2 (two) times a week. Apply to damp skin, lather, leave on 5 minutes, and rinse 120 mL 1 12/19/2023 Activeketorolac tromethamine 10 mg oral tablet (1 source)Nonsteroidal Anti-inflammatory Drug, Cyclooxygenase InhibitorStart: 03-15-2023 End: 73-48-0375robi 1 tablet by mouth every six hours as needed for pain ketorolac (TORADOL) 10 MG tablet Take 1 tablet by mouth every 6 hours as needed for Pain 20 tablet 0 03/15/2023 03/14/2024 Activeloratadine 10 mg oral tablet (20 sources)Start: 46-93-2613jiwh 1 tablet by mouth once dailyLoratadine (Claritin) 10 mg Tablet Active 10 MG PO Daily January 31, 2022 1:00am Complies with drug therapymeclizine hydrochloride 25 mg oral tablet (18 sources)AntiemeticStart: 11-29-2022 End: 25-87-5238lryb 1 tablet by mouth three times daily as needed for dizziness meclizine (ANTIVERT) 25 mg tablet Take 1 tablet (25 mg total) by mouth 3 (three) times a day as needed for dizziness. 30 tablet 11/29/2022 12/21/2024 Discontinued (Therapy completed)24 hr metoprolol succinate 50 mg extended release oral tablet (20 sources)beta-Adrenergic BlockerStart: 01-29-2025 End: 46-52-3661nccz 1 tablet by mouth every twenty-four hours in the morning metoprolol succinate XL (TOPROL XL) 50 mg 24 hr tablet Take 1 tablet (50 mg total) by mouth in the morning. 90 tablet 03/24/2025 ActiveStart: 01-07-2025 End: 47-47-9643lujb 1 tablet by mouth every twenty-four hours in the morning metoprolol succinate XL (TOPROL XL) 25 mg 24 hr tablet Take 1 tablet (25 mg total) by mouth in the morning. 30 tablet 1 01/07/2025 01/29/2025 Discontinued (Therapy completed)Start: 12-21-2024 End: 49-50-2903kqlg 1 tablet by mouth every twenty-four hours in the morning metoprolol succinate XL (TOPROL XL) 50 mg 24 hr tablet Indications: Essential hypertension Take 1 tablet (50 mg total) by mouth in the morning. 90 tablet 1 12/21/2024 01/07/2025 Discontinued (Therapycompleted)Start: 02-26-2024 End: 90-55-3980apfs 1 tablet by mouth every twenty-four hours in the morning metoprolol succinate XL (TOPROL XL) 25 mg 24 hr tablet Take 1 tablet (25 mg total) by mouth in the morning. 60 tablet 1 02/26/2024 06/29/2024 Discontinued Start: 11-21-2023 End: 18-43-0992oznb 1 tablet by mouth once dailymetoprolol succinate XL (TOPROL XL) 50 mg 24 hr tablet take 1 tablet by mouth once daily 90 tablet 0 02/17/2024 02/26/2024 Discontinued (Side effects)Start: 00-92-6765ejmc 1 tablet by mouth once dailymetoprolol succinate (TOPROL XL) 50 MG extended release tablet take 1 tablet by mouth once daily 0 08/31/2022 ActiveStart: 01-31-2022 End: 76-31-1443lggu 1 tablet by mouth once dailyMetoprolol Succinate 25 mg tablet extended release 24 hr Discontinued 25 MG PO Daily January 31, 2022 1:00am June 28, 2025 5:39pmtake 1 capsule by mouth once dailyMetoprolol Succinate 25 MG 1 capsule Orally Once a day Activenirmatrelvir-ritonavir (PAXLOVID) tablets (1 source)Start: 07-14-2024 End: 97-42-5031jsooimdkafkh-ritonavir (PAXLOVID) tablets Take 3 tablets by mouth in the morning and 3 tablets before bedtime. Do all this for 5 days. For doses of 3 tablets - Take two 150 mg nirmatrelvir (pink) tablets at the same time as one 100 mg ritonavir (white) tablet per dose.. 30 tablet 07/14/2024 07/19/2024 Activepantoprazole 40 mg delayed release oral tablet (18 sources)Proton Pump InhibitorStart: 03-09-2022 End: 29-54-4946ocgm 1 tablet by mouth in the morningpantoprazole (PROTONIX) 40 mg EC tablet Take 1 tablet (40 mg total) by mouth in the morning. 0 11/23/2022 Activetake 1 dose by mouth once daily before breakfastpantoprazole sodium (PROTONIX) 40 MG PACK packet Take 1 packet by mouth every morning (before breakf ast) 0 ActiveprednisoLONE acetate 10 mg/ml ophthalmic suspension (12 sources)CorticosteroidStart: 54-19-6773otpwrjyvQVMG acetate (PRED FORTE) 1 % ophthalmic suspension 12/23/2024 Active2 ml prochlorperazine 5 mg/ml injection (1 source)PhenothiazineStart: 03-15-2023 End: 02-87-4005hqhzaxctuwhwlils (COMPAZINE) injection 10 mgpropranolol hydrochloride 10 mg oral tablet (2 sources)beta-Adrenergic Blockertake 1 tablet by mouth three times daily propranolol (INDERAL) 10 mg tablet Take 10 mg by mouth three times daily. Active Comment on above:Take 10 mg by mouth three times daily.RABEprazole sodium 20 mg delayed release oral tablet (3 sources)Proton Pump Inhibitor End: 47-67-0638pxpy 1 tablet by mouth once dailyRABEprazole (ACIPHEX) 20 mg tablet Take 20 mg by mouth once daily. ActiveComment on above:Take 20 mg by mouth once daily.72 hr scopolamine 0.0139 mg/hr transdermal system (1 source)AnticholinergicStart: 35-56-7748wlewnrtpjcg (TRANSDERM-SCOP) transdermal patch 1 patchsemaglutide, weight loss, (WEGOVY) 0.25 mg/0.5 mL pen injector (10 sources)Start: 26-67-9123yanfnvnmarx, weight loss, (WEGOVY) 0.25 mg/0.5 mL pen injector Indications: Class 3 severe obesity due to excess calories without serious comorbidity with body mass index (BMI) of 60.0 to 69.9 in adult Inject 0.5 mL (0.25 mg total) under the skin every 7 days. 2 mL 12/31/2024 ActiveStart: 82-01-5042yitutfykyvy, weight loss, (WEGOVY) 0.25 mg/0.5 mL pen injector Indications: Class 3 severe obesity due to excess calories without serious comorbidity with body mass index (BMI) of 60.0 to 69.9 in adult ([facility]) Inject 0.5 mL (0.25 mg total) under the skin every 7 days. 2 mL 12/31/2024 Active5 ml sodium chloride 9 mg/ml injection (3 sources)Start: .9 % sodium chloride infusionStart: 03-15-2023 sodium chloride flush 0.9 % injection 5-40 mLTurmeric extract (2 sources)take 1 capsule by mouth once dailyTURMERIC ORAL Take 1 capsule by mouth once daily. Activetake 1 capsule by mouth once dailyTURMERIC ORAL Take 1 capsule by mouth once daily. 0 ActiveComment on above:Take 1 capsule by mouth once daily.valACYclovir 1000 mg oral tablet (12 sources)Herpesvirus Nucleoside Analog DNA Polymerase Inhibitor, Herpes Simplex Virus Nucleoside Analog DNA Polymerase Inhibitor, Herpes Zoster Virus Nucleoside Analog DNA Polymerase InhibitorStart: 29-66-8092pqwTLRhsldoq (VALTREX) 1000 mg tablet Has not taken yet 12/24/2024 ActiveVitamin B Complex (2 sources)take 1 capsule by mouth once dailyvitamin B complex (B COMPLEX ORAL) Take 1 capsule by mouth once daily. Activetake 1 capsule by mouth once daily vitamin B complex (B COMPLEX ORAL) Take 1 capsule by mouth once daily. 0 Active Comment on above:Take 1 capsule by mouth once daily.VITAMIN D PO (3 sources)VITAMIN D PO Take by mouth 0 Active Completed/Discontinued Medications MedicationDrug Class(es)DatesSig (Normalized)Sig (Original)acetaminophen 325 mg oral tablet (6 sources)Start: 03-15-2023 End: 38-83-0594syilsulowlmec (TYLENOL) tablet 650 mg End: 42-05-8510uvxe 2 tablets by mouth every six hours as needed for pain acetaminophen (TYLENOL) 325 mg tablet Take 2 tablets (650 mg total) by mouth every 6 (six) hours asneeded for pain. 12/31/2024 Discontinued (Therapy completed)ALPRAZolam 0.25 mg oral tablet (1 source)Benzodiazepine End: 85-53-6225glfq 1 tablet by mouth three times daily as needed for sleep ALPRAZolam (XANAX) 0.25 MG tablet Take 0.25 mg by mouth 3 times daily as needed for Sleep. 0 03/04/2023 Discontinued (LIST CLEANUP)amitriptyline hydrochloride 50 mg oral tablet (5 sources)Tricyclic AntidepressantStart: 82-76-8167pyis 1 tablet by mouth every twenty-four hoursAmitriptyline HCl 50 MG 1 tablet at bedtime Orally Once a day for 30 day(s) Jun, Not-Takingazithromycin 500 mg oral tablet (7 sources)Macrolide AntimicrobialStart: 09-25-2024 End: 61-98-5866uiop 1 tablet by mouth once dailyAzithromycin 500 mg tablet Discontinued 500 MG PO Daily 04 05September 25, 2024 12:00am December 19, 2024 12:34pmbenzonatate 100 mg oral capsule (5 sources)Non-narcotic AntitussiveStart: 06-28-2025 End: 44-66-4878Syswipalswf 100 mg capsule Discontinued MG PO June 28, 2025 12:00am July 13, 2025 11:16amStart: 29-41-5879qagt 1 capsule by mouth three times daily as neededbenzonatate (TESSALON PERLE) 100 mg capsule Indications: Viral URI with cough Take 1 capsule by mouth three times a day as needed. 40 capsule 06/25/2025 Activecephalexin 500 mg oral capsule (9 sources)Cephalosporin AntibacterialStart: 12-19-2024 End: 42-09-6113lmoz 1 capsule by mouth three times dailyCephalexin 500 mg capsule Discontinued 500 MG PO Three times daily 21 06December 19, 2024 1:00am June 28, 2025 5:40pmcholecalciferol 0.025 mg oral tablet (7 sources)Vitamin DStart: 01-31-2022 End: 99-93-5937sctk 1 tablet by mouth once dailyCholecalciferol (Vitamin D3) (Vitamin D3) 25 mcg (1,000 unit) Tablet Discontinued 25 MCG PO Daily January 31, 2022 1:00am December 19, 2024 12:35pmdextromethorphan hydrobromide 10 mg / guaiFENesin 200 mg oral capsule (6 sources)Uncompetitive E-zbtsmw-C-aspartate Receptor Antagonist, Sigma-1 Agonist End: 28-14-8903jletrivkzevhqram-guaiFENesin (CORICIDIN HBP CHEST IMAN-COUGH) 10- 200 mg capsule Take by mouth. 09/28/2024 Discontinued (Therapy completed) dextromethorphan hydrobromide 15 mg / guaiFENesin 400 mg / pseudoephedrine hydrochloride 60 mg oraltablet (4 sources)alpha-Adrenergic Agonist, Uncompetitive H-ksijzb-C-aspartate Receptor Antagonist, Sigma-1 AgonistStart: 06-28-2025 End: 78-18-1153dqre 4 tablets by mouth every twenty-four hours as needed for ecqxxLpehptjoqugcrbu-Pm-Gleapfefvag (Capmist Dm) 60-15-400 mg tablet Discontinued 1 TAB PO EVERY 4-6 HOURS as needed for cough 12 5 June 28, 2025 12:00am July 13, 2025 11:16am do not exceed 4 doses per 24 hrsdimenhyDRINATE 50 mg oral tablet (1 source)Start: 03-15-2023 End: 52-32-0846psyzrbkQEJWTZT (DRAMAMINE) tablet 50 mgescitalopram 10 mg oral tablet (13 sources)Serotonin Reuptake InhibitorStart: 04-15-2024 End: 14-30-4325yilr 1 tablet by mouth in the morningescitalopram (LEXAPRO) 10 mg tablet Take 1 tablet (10 mg total) by mouth in the morning. 04/15/2024 07/27/2024 Discontinued (Therapy completed)Start: 11-15-2023 End: 42-08-5586pcks 1 tablet by mouth once daily in the morningescitalopram (LEXAPRO) 10 mg tablet take 1 tablet by mouth every morning 90 tablet 1 01/17/2024 02/26/2024 Discontinued (Therapy completed)2 ml famotidine 10 mg/ml injection (1 source)Histamine-2 Receptor AntagonistStart: 03-15-2023 End: 42-24-1212pwjbljxhpl (PEPCID) injection 20 mg12 hr hyoscyamine sulfate 0.375 mg extended release oral tablet (10 sources)Start: 01-09-2022 End: 80-56-7179aoyt 1 tablet by mouth every twelve hoursHyoscyamine Sulfate 0.375 mg tablet extended release 12 hr Discontinued 0.375 MG PO As Directed Karel 2021 1:00am December 19, 2024 12:35pmofloxacin 3 mg/ml ophthalmic solution (9 sources)Quinolone AntimicrobialStart: 12-19-2024 End: 07-74-1347mpxz 0.3 drop(s) into the eye(s) four times dailyOfloxacin 0.3 % drops Discontinued 2 DROPS OPHTHALMIC Four times daily 04 07December 19, 2024 1:00am June 28, 2025 5:45pm left eyeStart: 12-12-2024 End: 16-07-4564mmdxviwjn (FLOXIN) 0.3 % otic solution 12/12/2024 12/31/2024 Discontinued (Therapy completed)omeprazole 40 mg delayed release oral capsule (7 sources)Proton Pump InhibitorStart: 01-31-2022 End: 22-62-0545ppkp 1 capsule by mouth once dailyOmeprazole 40 mg capsule,delayed release(DR/EC) Discontinued 40 MG PO Daily January 31, 2022 1:00am December 19, 2024 12:35pmondansetron 4 mg disintegrating oral tablet (13 sources)Serotonin-3 Receptor AntagonistStart: 02-26-2024 End: 10-69-1756cnan 1 tablet by mouth every eight hours as needed for nausea and vomitingondansetron ODT (ZOFRAN ODT) 4 mg disintegrating tablet Dissolve 1 tablet (4 mg total) on tongue every 8 (eight) hours as needed for nausea or vomiting. 20 tablet 08/13/2024 09/28/2024 Discontinued (Therapy completed) predniSONE 20 mg oral tablet (9 sources)Start: 06-28-2025 End: 66-21-1038ynjh 2 tablets by mouth once dailyPrednisone 20 mg tablet Discontinued 40 MG PO Daily 6 3 June 28, 2025 12:00am July 13, 2025 11 :16amStart: 12-24-2024 End: 71-70-7453emsv 1 tablet by mouth in the morning, then take 1 tablet by mouth at bedtimepredniSONE (DELTASONE) 20 mg tablet Take 1 tablet (20 mg total) by mouth in the morning and 1 tablet (20 mg total) before bedtime. Do all this for 5 days. 10 tablet 12/24/2024 12/29/2024 ActiveStart: 07-28-2024 End: 77-47-5772bxch 4 tablets by mouth in the morningpredniSONE (DELTASONE) 10 mg tablet Take 4 tablets (40 mg total) by mouth in the morning for 5 days. 20 tablet 07/28/2024 08/02/2024 ActiveStart: 07-14-2024 End: 21-73-4405shpj 1 tablet by mouth three times dailypredniSONE (DELTASONE) 20 mg tablet Take 1 tablet (20 mg total) by mouth 3 (three) times a day for 5 days. 15 tablet 07/14/2024 07/19/2024 ActiveStart: 04-16-2024 End: 13-47-1140cfyw 1 tablet by mouth in the morningpredniSONE (DELTASONE) 20 mg tablet Take 1 tablet (20 mg total) by mouth in the morning for 7 days.7 tablet 04/16/2024 04/23/2024 Activepromethazine hydrochloride 25 mg oral tablet (1 source)PhenothiazineStart: 06-03-2018 End: 68-17-7108hutuzwpeijxz (PHENERGAN) 25 MG tablet Take by mouth every 6 hours as needed 0 06/03/2018 3Discontinued (LIST CLEANUP)sucralfate 1000 mg oral tablet (6 sources)Aluminum ComplexStart: 87-27-2682laww 1 tablet by mouth every eight hoursSucralfate 1 GM 1 TABLET Orally THREE TIMES A DAY for 30 day(s) Jun, Not-Taking End: 31-52-5257nbso 1 tablet by mouth twice dailysucralfate (CARAFATE) 1 GM tablet Take 1 g by mouth 2 times daily 0 03/04/2023 Discontinued (LIST CLEANUP) tirzepatide, weight loss, (ZEPBOUND) 2.5 mg/0.5 mL pen injector (4 sources)Start: 02-04-2024 End: 19-32-4415indgnxpxsml, weight loss, (ZEPBOUND) 2.5 mg/0.5 mL pen injector Inject 2.5 mg under the skin every 7 days. 2 mL 0 02/04/2024 02/26/2024 Discontinued (Therapy completed)Start: 84-44-4360vbqpazxpwgf, weight loss, (ZEPBOUND) 2.5 mg/0.5 mL pen injector Inject 2.5 mg under the skin every 7 days. 2 mL 0 02/04/2024 Activevitamin b12 1 mg oral tablet (18 sources)Vitamin L96Axoth: 01-31-2022 End: 80-58-6514faok 1 tablet by mouth once dailyCyanocobalamin (Vitamin B-12) (Vitamin B-12) 1,000 mcg Tablet Discontinued 1000 MCG PO Daily January 31, 2022 1:00am December 19, 2024 12:35pmVitamin B 12 Not-Taking End: 05-31-1928Jmzscigvwdaxez (VITAMIN B 12 PO) Take by mouth 0 03/04/2023 Discontinued (LIST CLEANUP)Vitamin B 12 ActiveVitamin C 1000 MG (6 sources)take 1 tablet by mouth once dailyVitamin C 1000 MG 1 tablet Orally Once a day Not-Takingtake 1 tablet by mouth once dailyVitamin C 1000 MG 1 tablet Orally Once a day ActiveVitamin D (10 sources)Vitamin D Not-TakingVitamin D ActiveZinc (12 sources)Start: 01-31-2022 End: 71-69-5177sgtz 1 tablet by mouth once dailyZinc 50 mg Tablet Discontinued 50 MG PO Daily January 31, 2022 1:00am December 19, 2024 12:35pmStart: 01-31-2022 End: 47-02-9771ejqp 1 tablet by mouth once dailyZinc 50 mg Tablet Discontinued 50 MG PO Daily January 31, 2022 12:00am December 19, 2024 11:35amStart: 03-29-0963hxyt 50 mg by mouth once dailyZinc Active 50 MG PO Daily January 31, 2022 1:00am End: 20-95-1884ZHED PO Take by mouth 0 03/04/2023 Discontinued (LIST CLEANUP) take 1 tablet by mouth once dailyZinc 50 MG 1 tablet Orally Once a day Active Zinc Activezinc gluconate 50 mg oral tablet (6 sources)take 1 tablet by mouth every twenty-four hoursZinc 50 MG 1 tablet Orally Once a day Not-Taking Problems Active Problems Problem ClassificationProblemDateDocumented DateEpisodic/ChronicAbdominal pain (20 sources)Abdominal pain; Translations: [Unspecified abdominal pain]Onset: 01-09-2022 Resolved: 17-57-4132UndxzfllQdjtj and chronic tonsillitis (20 sources)Hypertrophy of tonsils; Translations: [Hypertrophy of tonsils]Onset: 657260-00-1654OvrdgbzHazdybhb reactions (1 source)Acute urticaria; Translations: [Other urticaria]89-28-4041Pmavleqw Anxiety disorders (20 sources)Anxiety disorder, unspecified; Translations: [Generalized anxiety disorder]Onset: 517175-79-7407ZbhmfokPvxeyxa dysrhythmias (20 sources)Fluttering heart; Translations: [Other specified cardiac arrhythmias]Onset: 667337-29-0043SfxsrkiDdpqytwtmd disorders (20 sources)First degree atrioventricular block; Translations: [Atrioventricular block, first degree]Onset: 761812-36-8656AqhcfntSfcdimyyqm disorders (20 sources)Gastroesophageal reflux disease; Translations: [Gastro-esophageal reflux disease without esophagitis]Onset: 04-26-2021 Resolved: 79-80-8480PqtqbqvVrgoclqnt hypertension (20 sources)Essential (primary) hypertension; Translations: [Essential hypertension]Onset: 394793-32-5082YbeighxDoalsgmxg and duodenitis (20 sources)Chronic gastritis; Translations: [Unspecified chronic gastritis without bleeding]Onset: 11-12-2018 Resolved: 69-56-8399ZdayxtyFivkoaxqs and duodenitis (11 sources)Gastritis; Translations: [Gastritis, unspecified, without bleeding] Onset: 01-09-2022 Resolved: 37-65-7613HoadhkouNqdoqrrg; including migraine (4 sources)Ophthalmoplegic migraine, not intractable; Translations: [OPHTH MIGRAINE NOT INTRACTABLE]Onset: 86-44-2993VjitditHkkykqde; including migraine (1 source)HeadacheOnset: 20-86-4563TthvvcmiGjyavursovh (6 sources)Hemorrhoids; Translations: [Unspecified hemorrhoids]Onset: 06-18-2022 Resolved: 18-97-0314OinwdtttMpzhbhrhvwoui and screening for infectious disease (1 source)Contact with or exposure to other viral diseases; Translations: [Contact with or suspected exposureto severe acute respiratory syndrome coronavirus 2 (SARS-CoV-2)]23-05-4327DaqimuxfAjgujuvjgvxc; infection of eye (except that caused by tuberculosis or sexually transmitteddisease) (8 sources)Hordeolum externum of left eyelid; Translations: [Hordeolum externum left eye, unspecified eyelid]Onset: 299413-45-5939XilbbzleIszeejy and fatigue (1 source)Other fatigue; Translations: [Other fatigue]Onset: 54-79-6166Duscdzdw Mood disorders (20 sources)Mild depression; Translations: [Mild depression]Onset: 07-19-2020 47-70-1706JghmlaqGkiaqgnjgggyoa (20 sources)Osteoarthritis of knee; Translations: [Osteoarthritis of knee, unspecified]Onset: 345401-95-6950RbthvvcFdmvc endocrine disorders (1 source)Polycystic ovarian syndrome; Translations: [PCOS (polycystic ovarian syndrome)]Onset: 87-46-2633EzfcusvUbqbz female genital disorders (20 sources)Endometrial hyperplasia; Translations: [Endometrial hyperplasia, unspecified]Onset: 780130-77-1100CtusdryXiksg gastrointestinal disorders (20 sources)Irritable bowel syndrome; Translations: [Other irritable bowel syndrome]Onset: 202179-12-7143UvqoprzGnltl gastrointestinal disorders (1 source)Other irritable bowel syndromeOnset: 01-09-2022 Resolved: 39-89-2399GeoqatcVzkul liver diseases (5 sources)Steatosis of liver; Translations: [Fatty (change of) liver, not elsewhere classified]ChronicOther liver diseases (1 source)Fatty (change of) liver, not elsewhere classifiedOnset: 06-18-2022 Resolved: 22-94-8569SzwtwyyZbtqq lower respiratory disease (4 sources)Other forms of dyspnea; Translations: [Other respiratory abnormalities]Onset: 51-78-9156SavcbwpdRpbyc lower respiratory disease (2 sources)Shortness of breath; Translations: [Shortness of breath]Onset: 39-74-4504CygbzmlqHewxb lower respiratory disease (5 sources)Shortness of breath; Translations: [Dyspnea]Onset: 07-28-2024 54-09-5711XlkkgehyCufkd lower respiratory disease (1 source)Snoring; Translations: [Snoring]Onset: 13-05-5883YxmnjocvOlnuf nervous system disorders (20 sources)Mononeuropathy of lower limb; Translations: [Unspecified mononeuropathy of unspecified lower limb]Onset: 702472-89-0155GpojqcvVawkt nervous system disorders (1 source)Postoperative pain ; Translations: [Other acute postprocedural pain] EpisodicOther nervous system disorders (1 source)Other acute postprocedural pain; Translations: [Other acute postprocedural pain]Onset: 46-94-2047YoulkmjaArbga nutritional; endocrine; and metabolic disorders (20 sources)Body mass index 40+ - severely obese; Translations: [Body mass index (BMI) 50.0-59.9, adult]Onset: 936267-59-1304PwnskglUmkrf nutritional; endocrine; and metabolic disorders (5 sources)Morbid obesity; Translations: [Morbid (severe) obesity due to excess calories]ChronicOther nutritional; endocrine; and metabolic disorders (2 sources)Morbid (severe) obesity due to excess calories; Translations: [Morbid (severe) obesity due to excess calories]Onset: 06-18-2022 Resolved: 17-30-3201GmutrkiLdrbu nutritional; endocrine; and metabolic disorders (1 source)Obesity, unspecified; Translations: [OBESITY UNSPECIFIED]Onset: 86-39-9743IgdnxigAfnka nutritional; endocrine; and metabolic disorders (20 sources)Severe obesity; Translations: [Class 3 severe obesity due to excess calories without serious comorbidity with body mass index (BMI) of 60.0 to 69.9 in adult]Onset: 016475-66-1250YbukrhzLpbqa nutritional; endocrine; and metabolic disorders (20 sources)Metabolic syndrome X; Translations: [Metabolic syndrome X]Onset: 592949-46-5310DzofowdNrcyz nutritional; endocrine; and metabolic disorders (1 source)Body mass index (BMI) 60.0-69.9, adult; Translations: [Body mass index (BMI) 60.0-69.9, adult]Onset: 53-40-6898RfyfkfuZnhjg screening for suspected conditions (not mental disorders or infectious disease) (3 sources)Patient encounter status; Translations: [Encounter for screening mammogram for malignant neoplasm of breast]Onset: 347136-90-5134Xcgruswa Other upper respiratory infections (14 sources)Acute pharyngitis, unspecified; Translations: [Acute upper respiratory infection, unspecified]Onset: 57-76-2359EdbgdbmiOvxbhv media and related conditions (2 sources)Otitis media; Translations: [Otitis media, unspecified, unspecified ear]76-05-2188EkilijthXiusczli codes; unclassified (1 source)Obstructive sleep apnea syndrome; Translations: [Obstructive sleep apnea (adult) (pediatric)]43-14-8367YihjagiQfwsswld codes; unclassified (1 source)Procedure not indicated; Translations: [Procedure and treatment not carried out for other reasons]EpisodicResidual codes; unclassified (4 sources)Pain, unspecified; Translations: [PAIN UNSPECIFIED]Onset: 06-26-2022 EpisodicResidual codes; unclassified (1 source)Pain; Translations: [Pain, unspecified]EpisodicUnclassified (2 sources)Post covid-19 condition, unspecified; Translations: [Post covid-19 condition, unspecified]Onset: 71-91-6299Flgysghlrwdq (1 source)Eye PainOnset: 23-69-1166Ihasnkygmwln (1 source)Subacute cough; Translations: [Subacute cough]Onset: 07-28-2024 Unclassified (1 source)Chest Tightness, Shortness of BreathOnset: 72-28-3958Aniocwlwoale (1 source)Obesity, class 3; Translations: [Obesity, class 3]Onset: 11-29-2022 Unclassified (1 source)swallen lymp nodesOnset: 59-64-4737Lhqdjifqdfdy (1 source)Ear FullnessOnset: 08-87-8114Facas infection (1 source)COVID-19; Translations: [COVID-19]Onset: 07-18-2024 Past or Other Problems Problem ClassificationProblemDateDocumented DateEpisodic/ChronicCardiac dysrhythmias (20 sources)Tachycardia; Translations: [Tachycardia, unspecified]Onset: 655617-00-5629NzfoearrPnvpgzlgwl associated with dizziness or vertigo (1 source)Benign paroxysmal positional vertigo; Translations: [Benign paroxysmal vertigo, unspecified ear]65-35-1429XujrittaEzaso of unknown origin (2 sources)Fever; Translations: [Fever, unspecified]Onset: EpisodicFluid and electrolyte disorders (20 sources)Hypokalemia; Translations: [Hypokalemia]Onset: EpisodicMood disorders (20 sources)Mood disordersOnset: 09-28-2024 Resolved: Nausea and vomiting (1 source)Nausea; Translations: [NAUSEA]Onset: 08-23-3751SlyrzcyeIntbkdyyenc chest pain (2 sources)Chest pain, unspecified; Translations: [Chest pain]Onset: 07-18-2024 EpisodicOther aftercare (1 source)Other clinical law professor (current) drug therapy; Translations: [OTH UROLOGIST MD CURRENT DRUG THERAPY]Onset: 79-82-6675CumrfejgJkbuk gastrointestinal disorders (20 sources)Dysphagia; Translations: [Dysphagia, unspecified]Onset: 01-31-2021 36-89-7528QaashuniYzeyu inflammatory condition of skin (1 source)Seborrheic dermatitis of scalp; Translations: [Seborrhea capitis] 39-31-9148UnudxsdvBujrv lower respiratory disease (20 sources)Hypoxemia; Translations: [Hypoxemia]Onset: 954457-23-9768 EpisodicOther lower respiratory disease (1 source)Dyspnea, unspecified; Translations: [Dyspnea, unspecified]Onset: 03-84-8242OspzvwwlHnuix lower respiratory disease (1 source)CoughOnset: 11-35-8568GqndppfaZzvsm nervous system disorders (20 sources)Skin sensation disturbance; Translations: [Unspecified disturbances of skin sensation]Onset: 890975-16-6292IsbefjcvRomzr nutritional; endocrine; and metabolic disorders (1 source)Weight lossOnset: 40-28-6856GeuuaewvIaakkcc cyst (20 sources)Cyst of right ovary; Translations: [Unspecified ovarian cyst, right side]Onset: 133092-10-4602GxadwzswQepdzrwr codes; unclassified (1 source)Acquired absence of both cervix and uterus; Translations: [ACQUIRED ABSENCE BOTH CERVIX AND UTERUS]Onset: 59-75-1302JdyediuhZrvifpkd codes; unclassified (1 source)Acquired absence of other specified parts of digestive tract; Translations: [ACQ ABSENCE OTH PART DIGESTV TRACT]Onset: 94-20-9007Gtixocei Residual codes; unclassified (20 sources)Edema of left lower limb; Translations: [Localized edema]Onset: 573451-52-0812EzqvhwkmChhrubjbdzb; intervertebral disc disorders; other back problems (20 sources)Lumbar radiculopathy; Translations: [Radiculopathy, lumbar region] Onset: 749310-23-3084RtnrefwpAosnxlohzdjq (1 source)Post covid-19 condition, unspecified; Translations: [Post covid-19 condition, unspecified]Onset: 80-66-3221Yucjazuutqwr (13 sources)Onset: Viral infection (20 sources)COVID-19; Translations: [Pneumonia due to other virus not elsewhere classified]Onset: 07-05-2021 Resolved: 579967-47-3837Tlnborka Results Test NameValueInterpretationReference RangeFacilityX-ray reportOrdered By: David Solis on 96-83-0622Wddau reportMERCY [facility]OSPITAL Main [address] [address] XRay Report Signed Patient: Olga Xiao MR#: [id number] : 1980 Acct:[id number] Age/Sex: 44 / F ADM Date: 5 Loc: [facility] Room: Type: [facility] Attending Dr: Tyra Enamorado DATA WAREHOUSE MANAGER Copies to: Tyra Enamorado APRN~ Ordering Provider: Tyra Enamorado APRN Date of Service: 06/28/25 XR/XR chest 2V*: COUGH Chest 2 views CLINICAL HISTORY: Productive cough fatigue for 11 days. COMPARISON: None FINDINGS: Heart normal in size. Lungs are clear. No free air. XR/XR chest 2V* IMPRESSION: NO ACUTE CARDIOPULMONARY ABNORMALITY. Impression dictated by: David Solis Jr., D.O. 06/28/2025 6:32 PM Dictation Location: RADIO-PC-18 Transcribed By: MARÍA 06/28/251831 Dictated By: David Solis Jr, DO 06/28/251831 Signed By: 06/28/25 [facility]V*on 99-93-8745WZ chest 2V*[facility] [place] [address] [place] [address] XRay Report Signed Patient: Olga Xiao MR#: [id number] : 1980 Acct:[id number] Age/Sex: 44 / F ADM Date: 06/28/25 Loc: [facility]: Tyra Enamorado DATA WAREHOUSE MANAGER Copies to: Tyra Enamorado APRN Ordering Provider: Tyra Enamorado APRN Date of Service: 06/28/25 XR/XR chest 2V*: COUGH Chest 2 views CLINICAL HISTORY: Productive cough fatigue for 11 days. COMPARISON: None FINDINGS: Heart normal in size. Lungs are clear. No free air. XR/XR chest 2V* IMPRESSION: NO ACUTE CARDIOPULMONARY ABNORMALITY. Impression dictated by: David Solis Jr., D.O. 06/28/2025 6:32 PM Dictation Location: RADIO-PC-18 Transcribed By: MARÍA 06/28/251831 Dictated By: David Solis Jr, DO 06/28/251831 Signed By: 06/28/[address] [place] [address] Physician GroupMAMM SCREENING BILATERAL W CADon 24-40-7684HVCH SCREENING BILATERAL W CADMAMM SCREENING BILATERAL W CAD OLGA XIAO 1980 [id number] EXAM: MAMM SCREENING BILATERAL W CAD, 01/21/2025 [...] 01/21/2025 10:02 AM 1 b MAMM 1 YRNoalProThe [facility] HospitalPOCT rapid strep Aon 09-28-2024S. pyogenes Ag IA Ql (Unsp spec)NegativeNegativeNew Lifecare Hospitals of PGH - Alle-KiskiInfluenza virus A and B and SARS-CoV-2 (COVID-19) RNA panel - Respiratory system specon 30-36-1806Rcdjfeynr virus A and B RNA and SARS-CoV-2 (COVID-19) N gene panel RAGINI+probe (Resp)Influenza virus A and B and SARS-CoV-2 (COVID-19) RNA panel - Respiratory system specSelect Medical Specialty [facility] Laboratory - Microbiology and Antimicrobial susceptibilityon 09-25-2024 SARS-CoV-2 (COVID-19) RNA RAGINI+probe Ql (Unsp spec)NegativeSelect Medical Specialty Hospital - Cleveland-FairhillNo Panel Informationon 72-70-6748ZNJ Influenza B (RAGINI)Negative [facility]FairhillCBC AND AUTO DIFFon 41-55-0748FLROFMBA BASOPHIL 0.0 X10E9/LNormal0.0-0.2PHighland District HospitalComment on above:Performed By: #### CBCA, 60147-0, PINR, 25675-2, BMP, 93969-6, 71201-1, 49099-6 #### [facility] ([id number]) [address] [place] [address] 18099HJGSYPQB NEUTROPHIL7.2 X10E9/LHigh1.5-6.6ProThe [facility] HospitalComment on above:Performed By: #### CBCA, 04947-2, PINR, 60596-0, BMP, 74112-3, 08476-8, 95712-7 #### [facility] ([id number]) [address] [place] [address] 87597Ykaoiktce/100 WBC (Bld)0.2 %NormalVan Wert County Hospital Comment on above:Performed By: #### CBCA, 68443-6, PINR, 21590-5, BMP, 16868-0, 90638-2, 87987-7 #### [facility] ([id number]) [address] [place] [address] 39202Sthgkskexnj (Bld) [#/Vol]0.1 10*3/uLNormal0.0-0.4Van Wert County HospitalComment on above:Performed By: #### CBCA, 15018-0, PINR, 31300- 9, BMP, 06395-2, 35908-9, 06741-8 #### [facility] ([id number]) [address] [place] [address] 74460Ptcaflzcdmz/100 WBC (Bld)1.2 %NormalVan Wert County Hospital Comment on above:Performed By: #### CBCA, 79985-8, PINR, 23473-8, BMP, 62425-3, 40505-1, 49223-5 #### [facility] ([id number]) [address] [place] [address] 79652Brxnocsqorg distribution width (RBC) [Ratio]15.1 %High11.5-15.0 [facility] HospitalComment on above:Performed By: #### CBCA, 68179-6, PINR, 79008-0, BMP, 79176-0, 37336-6, 40617-9 #### [facility] ([id number]) [address] [place] [address] 76204Ukzjwpxukj (Bld) [Volume fraction]38.1 %Tooycl45-26KheRjarieThe [facility] HospitalComment on above:Performed By: #### CBCA, 66587-2, PINR, 95900- 9, BMP, 50731-9, 74990-2, 37852-9 #### [facility] ([id number]) [address] [place] [address] 28109Lhgjsrcwig (Bld) [Mass/Vol]12.8 g/bXPozapg20.7-15.5PHighland District HospitalComment on above:Performed By: #### CBCA, 12405-0, PINR, 86685- 9, BMP, 96450-5, 91509-6, 07492-2 #### [facility] ([id number]) [address] [place] [address] 98827Uewafoarhcu (Bld) [#/Vol]2.2 10*3/uLNormal1.0-3.5PHighland District HospitalComment on above:Performed By: #### CBCA, 85233-1, PINR, 84931- 9, BMP, 73446-4, 07864-0, 49384-3 #### [facility] ([id number]) [address] [place] [address] 79777Iutdcvxllbl/100 WBC (Bld)21.3 %NormalVan Wert County Hospital Comment on above:Performed By: #### CBCA, 81877-6, PINR, 05618-1, BMP, 13449-3, 54037-3, 26310-2 #### [facility] ([id number]) [address] [place] [address] 87120TVY (RBC) [Entitic mass]27.2 qtUjewin22-87SgnYhzfwuThe [facility] HospitalComment on above:Performed By: #### CBCA, 72511-2, PINR, 89434-0, BMP, 32297-6, 46793-6, 42813-8 #### [facility] ([id number]) [address] [place] [address] 00254WBPP (RBC) [Mass/Vol]33.5 g/vKUzypwg07-45JlhWirkzjThe [facility] HospitalComment on above:Performed By: #### CBCA, 82250-9, PINR, 47574-9, BMP, 50157-2, 55787-2, 39690-7 #### [facility] ([id number]) [address] [place] [address] 86780DJO (RBC) [Entitic vol]81 oEFdzykr49-668CjdXdshtrVan Wert County HospitalComment on above:Performed By: #### CBCA, 56518-9, PINR, 96895-7, BMP, 36820-6, 78657-1, 97412-5 #### [facility] ([id number]) [address] [place] [address] 43960Lhlgoihla (Bld) [#/Vol]0.6 10*3/uLNormal0-0.9Van [facility] County HospitalComment on above:Performed By: #### CBCA, 93593-5, PINR, 02873-4, BMP, 47645-3, 91060-1, 54554-5 #### [facility] ([id number]) [address] [place] [address] 47090Zcvvsxtji/100 WBC (Bld)6.2 %NormalVan Wert County Hospital Comment on above:Performed By: #### CBCA, 84542-6, PINR, 88794-6, BMP, 68785-0, 64032-0, 55329-2 #### [facility] ([id number]) [address] [place] [address] 94447Xvkpkdbfwln/100 WBC (Bld)71.1 %NormalVan Wert County Hospital Comment on above:Performed By: #### CBCA, 83735-7, PINR, 27708-8, BMP, 25566-8, 67480-3, 49666-4 #### [facility] ([id number]) [address] [place] [address] 24765Wppebfcm mean volume (Bld) [Entitic vol]7.6 fLNormal7-12 [facility] HospitalComment on above:Performed By: #### CBCA, 29348-6, PINR, 82069-6, BMP, 80102-8, 29172-5, 10946-1 #### [facility] ([id number]) [address] [place] [address] 32673Canwtinpy (Bld) [#/Vol]312 10*3/cZFjiknd436-045DfhBtgkptVan Wert County HospitalComment on above:Performed By: #### CBCA, 15835-1, PINR, 53509- 9, BMP, 24235-4, 95062-7, 13506-5 #### [facility] ([id number]) [address] [place] [address] 90858LPV COUNT4.70 X10E12/LNormal3.80-5.20[facility] Comment on above:Performed By: #### CBCA, 32053-6, PINR, 53778-5, BMP, 57360-7, 75308-9, 18865-7 #### [facility] ([id number]) [address] [place] [address] 70018YTV (Bld) [#/Vol]10.1 10*3/uLNormal4.0-11.0ProThe [facility] HospitalComment on above:Performed By: #### CBCA, 80752-6, PINR, 43128-2, BMP, 21984-3, 55379-9, 81236-1 #### [facility] ([id number]) [address] [place] [address], [place] [address]KHCSBBPISWBBY METABOLIC PANELon 00-70-2835Ydotafw [Mass/Vol]3.6 g/dLNormal3.2-5.3PHighland District HospitalComment on above:Performed By: #### CBCA, 98304-4, PINR, 82232-1, BMP, 80663-3, 88084-8, 37772-2 #### [facility] ([id number]) [address] [place] [address], [place] [address]PYK [Catalytic activity/Vol]78 U/FMheych48-721KxfOjhhihThe [facility] Of [facility] HospitalComment on above:Performed By: #### CBCA, 57165-6, PINR, 24122-7, BMP, 47989-8, 82121-0, 29602-8 #### [facility] ([id number]) [address] [place] [address], [place] [address]VZH [Catalytic activity/Vol]28 U/LNormal0-31PHighland District HospitalComment on above:Performed By: #### CBCA, 43172-8, PINR, 04796-9, BMP, 68428-2, 42545-2, 87374-5 #### [facility] ([id number]) [address] [place] [address], [place] [address]Hxknx gap [Moles/Vol]8 mmol/LNormal5-15ProThe [facility] HospitalComment on above:Performed By: #### CBCA, 86189-9, PINR, 66988-9, BMP, 50988-5, 71025-0, 25407-1 #### [facility] ([id number]) [address] [place] [address], [place] [address]VEU [Catalytic activity/Vol]19 U/LNormal0-41ProThe [facility] HospitalComment on above:Performed By: #### SHIVANI, 95040-7, PINR, 95368-8, BMP, 19329-8, 83173-3, 82746-4 #### [facility] ([id number]) [address] [place] [address], [place] [address]Hskunkiel [Mass/Vol]0.5 mg/dLNormal0.3-1.2PHighland District HospitalComment on above:Performed By: #### SHIVANI, 40391-9, PINR, 18474-6, BMP, 77839-6, 76862-2, 32877-6 #### [facility] ([id number]) [address] [place] [address], [place] [address]Svoiaxy [Mass/Vol]8.7 mg/dLNormal8.5-10.5PHighland District HospitalComment on above:Performed By: #### SHIVANI, 55606-8, PINR, 47117-7, BMP, 11567-1, 95144-0, 60454-2 #### [facility] ([id number]) [address] [place] [address], [place] [address]Eamptwtb [Moles/Vol]104 mmol/QXlivzb20-973MxwFibokvThe University Of [facility] Danbury HospitalComment on above:Performed By: #### SHIVANI, 86959-2, PINR, 29545-7, BMP, 20280-5, 94896-0, 50600-0 #### [facility] ([id number]) [address] [place] [address], [place] [address]PQ2 [Moles/Vol]25 mmol/LYyjnun54-58AueCfqwopHighland District Hospital Comment on above:Performed By: #### CLAUDIOA, 67306-2, PINR, 28356-5, BMP, 13857-1, 10131-1, 62770-2 #### [facility] ([id number]) [address] [place] [address] 74577Reybhzokoq [Mass/Vol]0.68 mg/dLNormal0.40-1.00ProThe [facility] Danbury HospitalComment on above:Result Comment: METHOD TRACEABLE TO IDMS STANDARD Performed By: #### CBCA, 52967-9, PINR, 54439-3, BMP, 67208-8, 07862-1, 18742-2 #### [facility] ([id number]) [address] [place] [address] 17763nVQV (CKD-EPI) NON-RACE DEPENDENT>90Normal>59ProThe [facility] HospitalComment on above:Result Comment: Reported eGFR is based on the CKD-EPI 2020 equation that does not use a race coefficient.Performed By: #### SHIVANI, 17600-3, PINR, 28403-7, BMP, 64609-3, 60937-7, 39046-8 #### [facility] ([id number]) [address] [place] [address] 76519Wcswhyg [Mass/Vol]117 mg/pDNkrq13-62CnjZzbhopVan Wert County Hospital Comment on above:Performed By: #### CBCA, 75815-7, PINR, 66767-8, BMP, 45282-4, 95099-2, 51386-9 #### [facility] ([id number]) [address] [place] [address] 72662Vpplxpqtb [Moles/Vol]3.5 mmol/LNormal3.5-5.0ProThe [facility] HospitalComment on above:Performed By: #### CBCA, 44953-2, PINR, 87154-5, BMP, 65638-1, 77684-9, 28597-9 #### [facility] ([id number]) [address] [place] [address] 67754Sjrzdcb [Mass/Vol]7.5 g/dLNormal6.0-8.0Van [facility] County HospitalComment on above:Performed By: #### CBCA, 49708-3, PINR, 23964-0, BMP, 59659-8, 15763-0, 78187-0 #### [facility] ([id number]) [address] [place] [address] 14192Gbditj [Moles/Vol]137 mmol/RDieysg368-263BpuLznnzh Fremont HospitalComment on above:Performed By: #### CBCA, 59085-5, PINR, 94342-3, BMP, 36373-6, 54329-4, 93693-2 #### [facility] ([id number]) [address] [place] [address] 57914Vffc nitrogen [Mass/Vol]10 mg/dLNormal5-23ProThe [facility] HospitalComment on above:Performed By: #### CBCA, 19375-6, PINR, 76387-2, BMP, 87766-3, 44370-5, 39199-6 #### [facility] ([id number]) [address] [place] [address] 35067TO CHEST WO CONTon 35-66-6973VH CHEST WO CONTCT CHEST WO CONT Examination: Chest CT Date of Exam:07/28/2024 Clinical History:Respiratory illness shortness of breath Comparison:07/27/2021 Contrast:None Procedure: Multidetector axial CT Chest performed from the thoracic inlet to the level of the left renal vein. Sagittal and coronal 2-D reconstructed images were also obtained. Automatic exposure control (AEC) was utilized. Findings: The lungs demonstrate no focal consolidation or nodules. No pleural effusion. No mediastinal or hilar adenopathy. There is no coronary artery calcification.4 IMPRESSION: 1. No acute findings. All CT scans at this facility use dose modulation, iterative reconstruction, and/or weight based dosing when appropriate to reduce radiation dose to as low as reasonably achievable. Finalized by Bart Jackman MD on 07/28/2024 12:46 PMNormalProThe University Of [facility] Danbury HospitalFibrin D-dimer DDU (PPP) [Mass/Vol]on 07-28-2024 AMEVU803 ng/mL DDU Normal<255ProThe [facility] HospitalComment on above:Result Comment: Results <255 ng/mL DDU: The presence of a VTE can safely be excluded with a negative D-Dimer result and Wells score. A negative result doesn't exclude the possibility of DIC. The test be repeated along with other diagnostic tests if the patient's symptoms persist or worsen. [email or web address] By: #### SHIVANI, 26479-4, PINR, 76061-0, BMP, 25965-1, 82602-8, 78611-5 #### [facility] ([id number]) [address] [place] [address] 81830Qytqkucdcpp peptide B [Mass/Vol]on 92-68-8453AMF NATRIURETIC PEP<5Normal<100.0ProThe [facility] HospitalComment on above:Performed By: #### SHIVANI, 09430-3, PINR, 40325-8, BMP, 96386-3, 36034-4, 31391-9 #### [facility] ([id number]) [address] [place] [address] 44441GUXDCZD PROFILEon 75-41-9662Egyz T4 [Mass/Vol]0.99 ng/dLNormal 0.61-1.60ProThe [facility] HospitalComment on above:Performed By: #### CBCLucien, 82593-8, PINR, 06020-2, BMP, 54193-5, 79155-7, 11038-3 #### [facility] ([id number]) [address] [place] [address] 18908EFB5.57 uIU/mLNormal0.49-4.67ProThe [facility] HospitalComment on above:Performed By: #### CBCA, 59955-4, PINR, 28840-4, BMP, 36971-7, 77008-2, 50546-7 #### [facility] ([id number]) [address] [place] [address] 91058Bpdtyrjf I.cardiac High sensitivity method [Mass/Vol]on HOUR TROP I, HIGH SENSITIVITY2 ng/LNormal<16ProThe [facility] HospitalComment on above:Performed By: #### CBCA, 38930-8, PINR, 52145-5, BMP, 14606-9, 87632-9, 91874-9 #### [facility] ([id number]) [address] [place] [address] 44560AWBRWKCL I, HIGH SENSITIVITY<2Normal<16ProThe [facility] HospitalComment on above:Performed By: #### SHIVANI, 78147-3, PINR, 35524-6, BMP, 29140-6, 77732-4, 42894-4 #### [facility] ([id number]) [address] [place] [address] 77963WWT MACROSCOPIC NURon 85-42-0695VCZACXIUE NURNegativeNormalNEG [facility] Saint [facility]nes Medical CenterComment on above:Performed By: #### CLAUDIOA, 63240-6, PINR, 29383-3, BMP, 17481-6, 82756-8, 41810-3 #### [facility] ([id number]) [address] [place] [address] 93700OGVWG/HGB NURNegativeNormalNEGProOhiohealth Marion General Hospitalca Saint Agnes Medical CenterComment on above:Performed By: #### CBCA, 99746-0, PINR, 37398-8, BMP, 61061-2, 67811- 4, 68659-8 #### [facility] ([id number]) [address] [place] [address] 72386LOPMWZO NURNegativeNormalNEGProOhiohealth Marion General Hospitalca [facility] HospitalComment on above:Performed By: #### CBCA, 71273-5, PINR, 24016-5, BMP, 91134-4, 78998-4, 54177-8 #### [facility] ([id number]) [address] [place] [address] [place] 66902EIBZTUL NURNegativeNormalNEGProMedica Austin HospitalComment on above:Performed By: #### CBCA, 48280-5, PINR, 33019-3, BMP, 20108-4, 71543-1, 51310-6 #### [facility] ([id number]) [address] [place] [address] [place] 20293EDXBDZLVL ESTERASE NURNegativeNormalNEGProThe [facility] HospitalComment on above:Performed By: #### CBCA, 75825-0, PINR, 09060-8, BMP, 80533-4, 63311-5, 23273-7 #### [facility] ([id number]) [address] [place] [address] [place] 71577CNICCZJ NURNegativeNormalNEGProThe [facility] HospitalComment on above:Performed By: #### CLAUDIOA, 98926-6, PINR, 04093-2, BMP, 28066-9, 24402-8, 98560-2 #### [facility] ([id number]) [address] [place] [address] [place] 26147OQ NUR6.6Qlhaem3.0-8.5Pro[facility]ica Saint Agnes Medical CenterComment on above:Performed By: #### CBCA, 31234-8, PINR, 36527-9, BMP, 25943-7, 86290-9, 92964-3 #### [facility] ([id number]) [address] [place] [address] [place] 59132MJEVKPK NURNegativeNormalNEGProMedica Austin HospitalComment on above:Performed By: #### CBCA, 05620-0, PINR, 90124-0, BMP, 91911-2, 54224-1, 66318-8 #### [facility] ([id number]) [address] [place] [address] 30167FECOJIPJ GRAVITY NUR1.254Oavprj2.003-1.035ProThe [facility] HospitalComment on above:Performed By: #### CBCA, 67864-6, PINR, 53032-8, BMP, 43301-1, 58018-9, 24186-9 #### [facility] ([id number]) [address] [place] [address] 43203AUAUALFDUODE NUR0.2 eu/dLNormal<1.1PHighland District Hospital Comment on above:Performed By: #### SHIVANI, 45984-7, PINR, 41637-6, BMP, 60838-6, 88637-8, 61304-8 #### [facility] ([id number]) [address] [place] [address] 81815MYOMW METABOLIC PANLon 49-69-2553Mvnmt gap [Moles/Vol]8 mmol/L Normal5-15ProThe [facility] HospitalComment on above:Performed By: #### CBCA, 68290-4, PINR, 56534-9, BMP, 49818-4, 75298-6, 91544-0 #### [facility] ([id number]) [address] [place] [address] 95288Lrbwmyf [Mass/Vol]9.0 mg/dLNormal8.5-10.5PHighland District HospitalComment on above:Performed By: #### CBCA, 97680-3, PINR, 05970-6, BMP, 56372-2, 22199-4, 76647-6 #### [facility] ([id number]) [address] [place] [address] 35491Tseevgdc [Moles/Vol]104 mmol/GArjmrs29-818WqgLyopqc Austin HospitalComment on above:Performed By: #### CBCA, 07279-9, PINR, 94158-5, BMP, 80173-0, 78927-1, 80132-5 #### [facility] ([id number]) [address] [place] [address] 26818TR9 [Moles/Vol]23 mmol/WCtwgaa25-49IwwBpqqsmHighland District Hospital Comment on above:Performed By: #### CBCA, 74782-5, PINR, 24185-3, BMP, 94332-7, 61951-8, 18397-9 #### [facility] ([id number]) [address] [place] [address] 25082Nnalieuupg [Mass/Vol]0.74 mg/dLNormal0.40-1.00Van [facility] County HospitalComment on above:Result Comment: METHOD TRACEABLE TO IDMS STANDARD Performed By: #### CBCA, 50282-2, PINR, 25480-4, BMP, 61939-8, 12336-8, 10772-2 #### [facility] ([id number]) [address] [place] [address] 03164lECY (CKD-EPI) NON-RACE DEPENDENT>90Normal>59Van [facility] County HospitalComment on above:Result Comment: Reported eGFR is based on the CKD-EPI 2020 equation that does not use a race coefficient.Performed By: #### CBCA, 61642-8, PINR, 96834-8, BMP, 37692-9, 67436-4, 67006-5 #### [facility] ([id number]) [address] [place] [address] 78961Khaiuip [Mass/Vol]214 mg/qTPvpg52-01LyrPpkjhdVan Wert County Hospital Comment on above:Performed By: #### CBCA, 30869-2, PINR, 96147-7, BMP, 61977-6, 41990-6, 95412-6 #### [facility] ([id number]) [address] [place] [address] 98440Fdlorjncn [Moles/Vol]4.0 mmol/LNormal3.5-5.0ProThe [facility] HospitalComment on above:Performed By: #### CBCA, 50678-0, PINR, 38032-4, BMP, 95865-6, 77374-3, 26094-9 #### [facility] ([id number]) [address] [place] [address] 39481Rtxklr [Moles/Vol]135 mmol/DWbyyce272-496BigGvprkz [facility] HospitalComment on above:Performed By: #### CBCLucien, 16852-7, PINR, 41671-0, BMP, 72270-1, 18755-7, 67392-4 #### [facility] ([id number]) [address] [place] [address] 71353Risl nitrogen [Mass/Vol]14 mg/dLNormal5-23ProThe [facility] HospitalComment on above:Performed By: #### CBCA, 41610-1, PINR, 09600-1, BMP, 00593-0, 18267-0, 15930-0 #### [facility] ([id number]) [address] [place] [address] 92297OUY AND AUTO DIFFon 28-58-7482ITADVWXL BASOPHIL0.0 X10E9/L Normal0.0-0.2ProMedSutter Amador HospitalComment on above:Performed By: #### CBCA, 59365-9, PINR, 52253-4, BMP, 93343-6, 65788-9, 34581-2 #### [facility] ([id number]) [address] [place] [address] 02787VJKSKOHU NEUTROPHIL9.3 X10E9/LHigh1.5-6.6ProThe [facility] HospitalComment on above:Performed By: #### CBCA, 75064-7, PINR, 91421-3, BMP, 64695-7, 88367-6, 96809-7 #### [facility] ([id number]) [address] [place] [address] 47554Lfmysweaz/100 WBC (Bld)0.1 %NormalVan Wert County Hospital Comment on above:Performed By: #### CBCA, 15235-4, PINR, 66178-1, BMP, 46297-5, 44225-6, 09735-6 #### [facility] ([id number]) [address] [place] [address] 09486Geyqnkvgapg (Bld) [#/Vol]0.0 10*3/uLNormal0.0-0.4ProThe [facility] HospitalComment on above:Performed By: #### CBCA, 06585-3, PINR, 97598- 9, BMP, 45450-0, 73221-4, 29376-2 #### [facility] ([id number]) [address] [place] [address] 63543Xuatwztnuay/100 WBC (Bld)0.0 %NormalVan Wert County Hospital Comment on above:Performed By: #### CBCA, 08267-4, PINR, 85830-5, BMP, 18874-6, 80105-4, 67589-3 #### [facility] ([id number]) [address] [place] [address] 76836Jzlfnvihaqo distribution width (RBC) [Ratio]14.9 %Normal 11.5-15.0Van [facility] County HospitalComment on above:Performed By: #### CBCA, 37904-3, PINR, 79319-2, BMP, 91774-2, 18298-0, 02334-7 #### [facility] ([id number]) [address] [place] [address] 83588Yciwhyuyeu (Bld) [Volume fraction]39.4 %Sjqmbr76-24SrvVcagfpThe University Of [facility] HospitalComment on above:Performed By: #### CBCA, 31247-2, PINR, 77367- 9, BMP, 63935-1, 69495-8, 63917-5 #### [facility] ([id number]) [address] [place] [address] 96547Uvkytzdonk (Bld) [Mass/Vol]12.9 g/hJZfzvcy68.7-15.5PHighland District HospitalComment on above:Performed By: #### CBCA, 89181-7, PINR, 03033- 9, BMP, 33029-0, 51818-9, 19923-4 #### [facility] ([id number]) [address] [place] [address] 65881Ebmpkfellpx (Bld) [#/Vol]1.3 10*3/uLNormal1.0-3.5PHighland District HospitalComment on above:Performed By: #### CBCA, 93994-7, PINR, 00856- 9, BMP, 92911-6, 74232-6, 64333-7 #### [facility] ([id number]) [address] [place] [address] 97044Depdoqhovjs/100 WBC (Bld)11.8 %NormalVan Wert County Hospital Comment on above:Performed By: #### CBCA, 46352-3, PINR, 45250-9, BMP, 96856-5, 40702-3, 40901-3 #### [facility] ([id number]) [address] [place] [address] 58988WVY (RBC) [Entitic mass]26.6 tfUfk66-85WqdBdbidmThe University Of [facility] HospitalComment on above:Performed By: #### CBCA, 92337-8, PINR, 15480-1, BMP, 19485-4, 68453-4, 69855-5 #### [facility] ([id number]) [address] [place] [address] 48758UWZZ (RBC) [Mass/Vol]32.8 g/jURfaxmm66-00VrqNdighsThe University Of [facility] HospitalComment on above:Performed By: #### CBCA, 87492-3, PINR, 10408-8, BMP, 68865-8, 69089-2, 04484-3 #### [facility] ([id number]) [address] [place] [address] 37910ZUK (RBC) [Entitic vol]81 mFPemcsi88-747OvbXzmpoyVan Wert County HospitalComment on above:Performed By: #### CBCA, 83687-9, PINR, 78139-0, BMP, 91855-1, 29184-3, 69163-4 #### [facility] ([id number]) [address] [place] [address] 37309Csnlrrdcw (Bld) [#/Vol]0.3 10*3/uLNormal0-0.9Van [facility] HospitalComment on above:Performed By: #### CBCA, 65115-4, PINR, 59760-4, BMP, 38433-1, 17364-7, 04840-7 #### [facility] ([id number]) [address] [place] [address] 56131Ouimhyxhi/100 WBC (Bld)2.8 %NormalVan Wert County Hospital Comment on above:Performed By: #### CBCA, 08050-7, PINR, 77751-0, BMP, 67881-3, 08122-1, 01681-2 #### [facility] ([id number]) [address] [place] [address] 33372Jvuegevhygs/100 WBC (Bld)85.3 %NormalVan Wert County Hospital Comment on above:Performed By: #### CBCA, 34255-4, PINR, 40833-2, BMP, 88963-0, 66444-2, 02046-0 #### [facility] ([id number]) [address] [place] [address] 90559Nkqbirzk mean volume (Bld) [Entitic vol]7.8 fLNormal7-12 ProMSequoia HospitalComment on above:Performed By: #### CBCA, 57062-4, PINR, 08755-6, BMP, 98733-5, 84667-2, 08825-5 #### [facility] ([id number]) [address] [place] [address] 69332Xjdcefnoo (Bld) [#/Vol]326 10*3/qKSbjrqz933-313IueJihbni [facility] HospitalComment on above:Performed By: #### CBCA, 66549-6, PINR, 53077- 9, BMP, 18567-5, 16809-4, 23804-8 #### [facility] ([id number]) [address] [place] [address] 80348GBU COUNT4.87 X10E12/LNormal3.80-5.20[facility] Comment on above:Performed By: #### CBCA, 93117-8, PINR, 75538-4, BMP, 80410-8, 07586-3, 92002-4 #### [facility] ([id number]) [address] [place] [address] 24861QOC (Bld) [#/Vol]10.9 10*3/uLNormal4.0-11.0[facility] HospitalComment on above:Performed By: #### CBCA, 05695-0, PINR, 93955-5, BMP, 88970-9, 66507-6, 44165-0 #### [facility] ([id number]) [address] [place] [address] 01389Kcnydc D-dimer DDU (PPP) [Mass/Vol]on 07-18-2024 GWDQY058 ng/mL DDUNormal<255ProThe [facility] HospitalComment on above:Result Comment: Results <255 ng/mL DDU: The presence of a VTE can safely be excluded with a negative D-Dimer result and Wells score. A negative result doesn't exclude the possibility of DIC. The test be repeated along with other diagnostic tests if the patient's symptoms persist or worsen. [email or web address] By: #### CBCA, 09790-3, PINR, 09838-4, BMP, 58504-9, 46724-6, 31698-9 #### [facility] ([id number]) [address] [place] [address] 02598UFLUXDRTByg 38-26-0551Drqljbjos [Mass/Vol]2.0 mg/dLNormal 1.8-2.6ProThe [facility] HospitalComment on above:Performed By: #### CBCA, 02390-1, PINR, 49666-7, BMP, 39944-6, 50756-5, 51527-8 #### [facility] ([id number]) [address] [place] [address] 10772Tzbrdqylgzx peptide B [Mass/Vol]on 18-84-9401Einvswdcjiz peptide B (Bld) [Mass/Vol]59 pg/mLNormal<100.0ProThe [facility] HospitalComment on above:Performed By: #### CBCA, 24038-2, PINR, 89740-5, BMP, 78866-6, 76107-3, 55721-6 #### [facility] ([id number]) [address] [place] [address] 58952SZPDIFL AND INRon 38-28-9754KOI Coag (PPP) [Relative time]1.0 {INR}Normal0.8-1.1PHighland District HospitalComment on above:Performed By: #### CBCA, 40338-8, PINR, 16488-9, BMP, 19988-2, 43003-9, 20116-4 #### [facility] ([id number]) [address] [place] [address] 72540SQ Coag (PPP) [Time]11.5 sNormal9.8-13.2ProMedica Saint Agnes Medical CenterComment on above:Result Comment: NEW REFERENCE RANGEPerformed By: #### CBCA, 65219-0, PINR, 44452-2, BMP, 17729-0, 27132-7, 39532-1 #### [facility] ([id number]) [address] [place] [address] 55842Xtbfscrs I.cardiac High sensitivity method [Mass/Vol]on HOUR TROP I, HIGH SENSITIVITY4 ng/LNormal<16ProThe [facility] HospitalComment on above:Performed By: #### 14138-2 #### [facility] ([id number]) [address] [place] [address] 44037DSOYXHXM I, HIGH SENSITIVITY<2Normal<16ProThe [facility] HospitalComment on above:Performed By: #### CBCA, 33636-2, PINR, 33520-5, BMP, 56999-9, 29620-5, 77654-9 #### [facility] ([id number]) [address] [place] [address] 26334HU CHEST 1 VWon 86-20-1966KBDH-CoV-2 (COVID-19) RNA RAGINI+probe Ql (Unsp spec)XR CHEST 1 VW CLINICAL INFORMATION: Loss of breath. Covid positive COMPARISON: Chest radiograph dated 07/09/2021. VIEWS: 1. FINDINGS: Cardiac and mediastinal shadows are normal. No infiltrates. No effusions. No pneumothorax. No free air below the diaphragm. IMPRESSION: No radiographic evidence for infiltrate. Finalized by Clemencia Heard MD on 07/18/2024 8:29 PMNormalProMedica Saint Agnes Medical CenteraPTT Coag (PPP) [Time]on 67-75-0507aPUB Coag (Bld) [Time]34 cXyorle04-15 [facility] HospitalComment on above:Result Comment: NEW REFERENCE RANGE Performed By: #### CBCA, 07069-5, PINR, 73880-1, BMP, 28831-5, 91735-4, 75977-4 #### [facility] ([id number]) [address] [place] [address], FIRST FLO[address] [place], [place] [address]QXGX Influenza A/Influenza B/SARS-COV-2 Veritoron 02-26-2024 External Poct Influenza A AntigenNegativeDayton VA Medical Centerca Health SystemExternal Poct Influenza B AntigenNegativeFisher-[facility]itus Medical [facility] SystemInterpretation and review of laboratory resultsNormalProWayne HealthCare Main CampusARS-CoV-2 (COVID-19) Ag IA.rapid Ql (Resp)NegativeProSelect Medical Tri[facility] Rehabilitation [facility] SystemFisher-Titus Medical Center SystemBASIC METABOLIC PANLon 87-09-7885Ltvhx gap [Moles/Vol]9 mmol/LNormal5-15ProCoshocton Regional Medical CenterComment on above:Performed By: #### BMP #### [facility] ([id number]) [address], [address] [place], [place] [address]Zogselt [Mass/Vol]9.4 mg/dLNormal8.5-10.5ProMedUniversity Hospitals Cleveland Medical CenterComment on above:Performed By: #### BMP #### [facility] ([id number]) [address] [place] [address], [address] [place], [place] [address]Rxsaqoji [Moles/Vol]101 mmol/JGmxozn24-673WwpTrtgdm [facility]edo HospitalComment on above:Performed By: #### BMP #### [facility] ([id number]) [address] [place] [address], [address] [place], [place] [address]NO6 [Moles/Vol]27 mmol/EDznmmf06-04VzlRnhgur [facility] Comment on above:Performed By: #### BMP #### [facility] ([id number]) [address] [place], [place] [address]Vtkuftiybc [Mass/Vol]0.54 mg/dLNormal0.40-1.00ProOhiohealth Marion General Hospitalca [place] HospitalComment on above:Result Comment: METHOD TRACEABLE TO IDMS STANDARD Performed By: #### BMP #### [facility] ([id number]) [address] [address] [place], [place] [address]qHWL (CKD-EPI) NON-RACE DEPENDENT>90Normal>59ProMedica [place] HospitalComment on above:Result Comment: Reported eGFR is based on the CKD-EPI 2020 equation that does not use a race coefficient.Performed By: #### BMP #### [facility] ([id number]) [address] [address] [place], [place] [address]Kswlsvu [Mass/Vol]94 mg/sVCpiqfh36-17AvmFkkkft [facility] Comment on above:Performed By: #### BMP #### [facility] ([id number]) [address] [address] [place], [place] [address]Mpxyfjcqq [Moles/Vol]4.0 mmol/LNormal3.5-5.0ProMedica [place] HospitalComment on above:Performed By: #### BMP #### [facility] ([id number]) [address] [address] [place], [place] [address]Pfeuib [Moles/Vol]137 mmol/VPrsblu030-067IsrDmlvtm [place] HospitalComment on above:Performed By: #### BMP #### [facility] ([id number]) [address] [address] [place], [place] [address]Drsy nitrogen [Mass/Vol]9 mg/dLNormal5-23ProOhiohealth Marion General Hospitalca [place] HospitalComment on above:Performed By: #### BMP #### [facility] ([id number]) [address] [address] [place], [place] [address]Aaxbn Metabolic Panelon [id number] gap [Moles/Vol]9 mmol/L5 - 15 mmol/LPrSaint Alexius HospitalModus Group, LLC. Health SystemCalcium [Mass/Vol]9.4 mg/dL8.5 - 10.5 mg/dL [facility] [employer] SystemChloride [Moles/Vol]101 mmol/L98 - 109 mmol/LProMedModus Group, LLC. Health SystemCO2 [Moles/Vol]27 mmol/L22 - 32 mmol/LPrPremier Health [facility] Creatinine [Mass/Vol]0.54 mg/dL0.40 - 1.00 mg/dLKindred Hospital DaytonComment on above:METHOD TRACEABLE TO IDLA STANDARDeGFR (CKD-EPI)non-race dependent- PINF [facility]red Hospital DaytonComment on above: Reported eGFR is based on the CKD-EPI 2020 equation that does not use a race coefficient. Glucose [Mass/Vol]94 mg/dL65 - 99 mg/dLPremier Health Atrium [facility] Center [employer] [facility] AlmaPotassium [Moles/Vol]4.0 mmol/L3.5 - 5.0 mmol/LPrSaint Alexius HospitalAventones SystemSodium [Moles/Vol] 137 mmol/L134 - 146 mmol/[facility] Doctors RegionalAventones SystemUrea nitrogen [Mass/Vol]9 mg/dL 5 - 23 mg/dLKindred Hospital DaytonProChildren'S [facility] [employer] SystemQuick Strepon 05-25-2023S. pyogenes Org specific cx Ql (Throat)[employer] Other Quick StrepMedifacts [employer] Other FLUORO FOR SURGICAL PROCEDURESon [id number] FOR SURGICAL PROCEDURESRadiology exam is complete. No Radiologist dictation. Please follow up with ordering provider. Final resultNormalMerBackus HospitalRadiology exam is complete. No Radiologist dictation. Please follow up with ordering provider. MHPN RIS CONSOLIDATEDXR CHEST (2 VW)on [id number] CHEST (2 VW)EXAMINATION: TWO XRAY VIEWS OF THE CHEST 03/05/2023 10:25 am COMPARISON: None. HISTORY: ORDERING SYSTEM PROVIDED HISTORY: Pre-op chest exam TECHNOLOGIST PROVIDED HISTORY: chronic lung issues s/p COVID 06/2021 FINDINGS: Clear lungs. No pleural effusion or pneumothorax. Cardiomediastinal silhouette is unremarkable. Visualized osseous structures are unremarkable. IMPRESSION: No focal lung opacity. Interpreted by: Claudia Jolley MD Signed by: Claudia Jolley MD 03/05/23 Final resultNormalMerNorwalk Hospital focal lung opacity. [facility] CONSOLIDATEDEXAMINATION: TWO XRAY VIEWS OF THE CHEST 03/05/2023 10:25 am COMPARISON: None. HISTORY: ORDERING SYSTEM PROVIDED HISTORY: Pre-op chest exam TECHNOLOGIST PROVIDED HISTORY: chronic lung issues s/p COVID 06/2021 FINDINGS: Clear lungs. No pleural effusion or pneumothorax. Cardiomediastinal silhouette is unremarkable. Visualized osseous structures are unremarkable. [facility] Claudia Florez MD - 03/05/2023 EXAMINATION: TWO XRAY VIEWS OF THE CHEST 03/05/2023 10:25 am COMPARISON: None. HISTORY: ORDERING SYSTEM PROVIDED HISTORY: Pre-op chest exam TECHNOLOGIST PROVIDED HISTORY: chronic lung issues s/p COVID 06/2021 FINDINGS: Clear lungs. No pleural effusion or pneumothorax. Cardiomediastinal silhouette is unremarkable. Visualized osseous structures are unremarkable. IMPRESSION: No focal lung opacity. Open CS Phone: radiology Study observation (narrative)Open CS Phone: XR CHEST (2 VW)Ordered By: Claudia Jolley on [id number] Phone: CT HEAD WO CONon [id number] HEAD WO CONCT HEAD WITHOUT CONTRAST. INDICATION: Headache. COMPARISON: 12/11/2021 TECHNIQUE: Axial CT head images from the skull base to the vertex without IV contrast were acquired. Coronal and sagittal reformats were also obtained. FINDINGS: EXTRA-AXIAL SPACE: Age-appropriate ventricles. No acute extra-axial collection. No extra-axial mass. No midline shift. CEREBRUM: No focal abnormality. No CT evidence of acute large territorial cortical infarct, hemorrhage or mass effect. CEREBELLUM: No focal abnormality. No CT evidence of acute infarct, hemorrhage or mass effect. BRAINSTEM: No focal abnormality. No CT evidence of acute infarct, hemorrhage or mass effect. EXTRACRANIAL STRUCTURES. The paranasal sinuses are clear. Mastoid air cells are clear. Orbits are unremarkable. No discrete pituitary mass. Intact calvarium. IMPRESSION: No acute intracranial abnormality. 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 FINDINGS: UTERUS: Hysterectomy. RIGHT OVARY: Removed no suspicious adnexal findings. LEFT OVARY: Normal size and appearance with a small echogenic structure adjacent the ovary, likely representing a portion of the Esure device. Duplex Doppler demonstrates normal waveform and flow; resistive index 0.4. Ovary size: 3.8 x 1.3 x 2.0 cm CUL-DE-SAC: Unremarkable. No significant free fluid. BLADDER: Unremarkable. OTHER: None. IMPRESSION: 1. Unremarkable left ovary with suspected adjacent foreign body which may correspond to missing portion of an Esure fallopian tube closure device as noted in patient history. I am uncertain of the timing of the patient's hysterectomy, but a KUB obtained 2 days ago on 06/24/2022 shows an Esure fallopian tube closure device within the lower left pelvis. Electronically authenticated by: ZULEYKA FISHER Date: 2022-06-26 16:54[facility] CenterCBC AUTO DIFFon [id number] #0.0 103/ulNormal0.0-0.1K[facility]tering Health PrebleComment on above:Performed By: #### CBC #### [facility] [address] [address] [address] Ruddy Marquezsophils/100 WBC (Bld)0.2 %Normal0.2-2.0The [facility] Comment on above:Performed By: #### CBC #### [facility] [address] [address] [address] Ruddy Garsia #0.2 103/ulNormal0.0-0.7The [facility] HospitalComment on above: Performed By: #### CBC #### [facility] [address] [address] [address] Ruddy Vargasosinophils/100 WBC (Bld)1.9 %Normal0.9-7.0The [facility] Comment on above:Performed By: #### CBC #### [facility] [address] [place] [address] Dr. Ruddy Vargasrythrocyte distribution width (RBC) [Ratio]13.7 %Znmpvq24.0-15.0 The [facility] HospitalComment on above:Performed By: #### CBC #### [facility] [address] [place] [address] Dr. Ruddy MichaudHematocrit (Bld) [Volume fraction]39.0 %Dgrtcl71.0-48.0The [facility] HospitalComment on above:Performed By: #### CBC #### [facility] [address] [place] [address] Dr. Ruddy MichaudHemoglobin (Bld) [Mass/Vol]12.9 g/uJHtluaa61.0-16.0The [facility] Centerment on above:Performed By: #### CBC #### [facility] [address] [place] [address] Dr. Ruddy Farrar #0.03 10e3/ulNormal0.00-0.03The [facility] Centerment on above:Performed By: #### CBC #### [facility] [address] [place] [address] Dr. Ruddy Farrar %0.4 %Normal0.0-0.5The [facility] Centerment on above: Performed By: #### CBC #### [facility] [address] [place] [address] Dr. Ruddy PinzonH #2.0 103/ulNormal1.2-3.8The [facility] HospitalComcorewell health gerber hospital on above:Performed By: #### CBC #### [facility] [address] [place] [address] Dr. Ruddy Oleamphocytes/100 WBC (Bld)24.4 %Msicdj33.5-60.0The [facility] HospitalComment on above:Performed By: #### CBC #### [facility] [address] [address] [address] Ruddy Alvarez DIFF REQNONormalThe [facility] HospitalComment on above: Performed By: #### CBC #### [facility] [address] [address] [address] Ruddy Brady (RBC) [Entitic mass]26.8 hzMdivss95.7-34.0The [facility] HospitalComment on above:Performed By: #### CBC #### [facility] [address] [place] [address] Dr. Ruddy Brady (RBC) [Mass/Vol]33.1 g/cZLcjmmp39.9-35.2The [facility] HospitalComment on above:Performed By: #### CBC #### [facility] [address] [place] [address] Dr. Ruddy Brady (RBC) [Entitic vol]80.9 fLCritically low81.0-99.0The [facility] HospitalComment on above:Performed By: #### CBC #### [facility] [address] [place] [address] Dr. Ruddy Vega #0.4 103/ulNormal0.3-0.8The [facility] HospitalComment on above:Performed By: #### CBC #### [facility] [address] [place] [address] Dr. Ruddy Reinosoocytes/100 WBC (Bld)5.2 %Normal1.7-12.0The [facility] Comment on above:Performed By: #### CBC #### [facility] [address] [place] [address] Dr. Ruddy Celeste #5.5 103/ulNormal1.4-6.5The [facility] HospitalComment on above:Performed By: #### CBC #### [facility] [address] [place] [address] Dr. Ruddy Malikutrophils/100 WBC (Bld)67.9 %Yxwejc40.0-75.0The [facility] HospitalComment on above:Performed By: #### CBC #### [facility] [address] [place] [address] Dr. Ruddy Sutherland mean volume (Bld) [Entitic vol]9.6 fLNormal9.5-13.5The [facility] HospitalComment on above:Performed By: #### CBC #### [facility] [address] [place] [address] Dr. Ruddy MichaudPLT260 103/kxPansuc217-543Uke [facility] HospitalComcorewell health gerber hospital on above: Performed By: #### CBC #### [facility] [address] [place] [address] Dr. Ruddy MichaudRBC4.82 106/ulNormal4.20-5.40The [facility] on above:Performed By: #### CBC #### [facility] [address] [place] [address] Dr. Ruddy MichaudWBC8.1 103/ulNormal4.0-11.0[facility] on above: Performed By: #### CBC #### [facility] [address] [place] [address] Dr. Ruddy Marie URINE PROFILEon [id number] Ql (U)NegativeNormal NEGATIVEKettering Health PrebleComcorewell health gerber hospital on above:Performed By: #### ERUR #### [facility] [address] [place] [address] Dr. Ruddy Crawfordarity (U)CLEARNormalCLEARThe [facility] HospitalComcorewell health gerber hospital on above: Performed By: #### ERUR #### [facility] [address] [place] [address] Dr. Ruddy Lucio (U)LT. YELLOWNormalYELLOWKettering Health PrebleComcorewell health gerber hospital on above:Performed By: #### ERUR #### [facility] [address] [place] [address] Dr. Ruddy Cardoso micrscopic examination will be performed if indicated. NormalThe [facility] HospitalComcorewell health gerber hospital on above:Performed By: #### ERUR #### [facility] [address] [address] [address] Ruddy MichaudGlucose Ql (U)NegativeNormalNEGATIVEKettering Health PrebleComment on above:Performed By: #### ERUR #### [facility] [address] [address] [address] Ruddy MichaudHemoglobin Ql (U)NegativeNormalNEGATIVEKettering Health Preble Comment on above:Performed By: #### ERUR #### [facility] [address] [place] [address] Dr. Ruddy MichaudKetones Ql (U)NegativeNormalNEGATIVEKettering Health PrebleComment on above:Performed By: #### ERUR #### [facility] [address] [place] [address] Dr. Ruddy MichaudLEUKOCYTESNegativeNormalNEGATIVEKettering Health PrebleComment on above:Performed By: #### ERUR #### [facility] [address] [place] [address] Dr. Ruddy MichaudNitrite Ql (U)NegativeNormalNEGATIVEKettering Health PrebleComment on above:Performed By: #### ERUR #### [facility] [address] [place] [address] Dr. Ruddy MichaudpH (U)6.0 [pH]Normal5-9K[facility] Health PrebleComment on above: Performed By: #### ERUR #### [facility] [address] [place] [address] Dr. Ruddy MichaudSPEC GRAVITY1.052Kzzntg4.005-<=1.025The [facility] HospitalComment on above:Performed By: #### ERUR #### [facility] [address] [place] [address] Dr. Ruddy MichaudUA PROTEINNegativeNormalNEGATIVE/ TRACEKettering Health Preble Comment on above:Performed By: #### ERUR #### [facility] [address] [place] [address] Dr. Ruddy Steele MICRO INDNOT INDICATEDNoalThEast Ohio Regional HospitalComment on above:Performed By: #### ERUR #### [facility] [address] [place] [address] Dr. Ruddy Annbilino Qn (U)0.2 {Ambrose'U}/dLNormal0.2 - 1.0The [facility] HospitalComment on above:Performed By: #### ERUR #### [facility] [address] [place] [address] Dr. Ruddy NiñoASEon [id number] [Catalytic activity/Vol]67.0 U/L Critically low73.0-393.0The [facility] HospitalComment on above:Performed By: #### LIPA, CMP #### [facility] [address] [place] [address] Dr. Ruddy MichaudPROF 14(COMP METB)on [id number] [Mass/Vol]3.5 g/dLNormal 3.4-5.0The [facility] HospitalComment on above:Performed By: #### LIPA, CMP #### [facility] [address] [place] [address] Dr. Ruddy MichaudAlbumin/Globulin [Mass ratio]0.9 {ratio}NormalThe [facility] HospitalComment on above:Performed By: #### LIPA, CMP #### [facility] [address] [place] [address] Dr. Ruddy Wallace [Catalytic activity/Vol]87 U/GVkpekr75-310Vyw [facility] HospitalComment on above:Performed By: #### LIPA, CMP #### [facility] [address] [place] [address] Dr. Ruddy Fajardo [Catalytic activity/Vol]23 U/HNoneit05-05Fii [facility] HospitalComment on above:Performed By: #### LIPA, CMP #### [facility] [address] [place] [address] Dr. Ruddy Villeda gap [Moles/Vol]11.4 mmol/LNormalThe [facility] Comment on above:Performed By: #### LIPA, CMP #### [facility] [address] [place] [address] Dr. Ruddy MichaudAST [Catalytic activity/Vol]8 U/LCritically oei50-62Vmb [facility] HospitalComment on above:Performed By: #### LIPA, CMP #### [facility] [address] [address] [address] Ruddy MichaudBilirubin [Mass/Vol]0.3 mg/dLNormal0.2-1.0The [facility] Comment on above:Performed By: #### LIPA, CMP #### [facility] [address] [place] [address] Dr. Ruddy MichaudCalcium [Mass/Vol]8.7 mg/dLNormal8.5-10.1The [facility] Comment on above:Performed By: #### LIPA, CMP #### [facility] [address] [address] [address] Ruddy MichaduChloride [Moles/Vol]104 mmol/RFkhkor18-719Fqg [facility] Comment on above:Performed By: #### LIPA, CMP #### [facility] [address] [address] [address] Ruddy MichaudCO2 [Moles/Vol]27.1 mmol/CEqvzga13.0-32.0The [facility] Comment on above:Performed By: #### LIPA, CMP #### [facility] [address] [place] [address] Dr. Ruddy MichaudCreatinine [Mass/Vol]0.67 mg/dLNormal0.55-1.02The [facility] HospitalComment on above:Performed By: #### LIPA, CMP #### [facility] [address] [place] [address] Dr. Fxo ChangEGFR-AF NEPALESE>60Normal>=60The [facility] HospitalComment on above:Performed By: #### LIPA, CMP #### [facility] [address] [place] [address] Dr. Ruddy VargasGFR-NON AF NEPALESE>60Normal>=60The [facility] HospitalComment on above:Performed By: #### LIPA, CMP #### [facility] [address] [address] [address] Ruddy MichaudGlobulin (S) [Mass/Vol]3.7 g/dLNormPremier Health Upper Valley Medical CenterComment on above:Performed By: #### LIPA, CMP #### [facility] [address] [place] [address] Dr. Ruddy MichaudGlucose [Mass/Vol]119 mg/dLCritically zbzx62-829Yng [facility] HospitalComment on above:Performed By: #### LIPA, CMP #### [facility] [address] [place] [address] Dr. Ruddy MichaudPotassium [Moles/Vol]3.5 mmol/LNormal3.5-5.1The [facility] Comment on above:Performed By: #### LIPA, CMP #### [facility] [address] [place] [address] Dr. Ruddy MichaudProtein [Mass/Vol]7.2 g/dLNormal6.4-8.2The [facility] Comment on above:Performed By: #### LIPA, CMP #### [facility] [address] [place] [address] Dr. Ruddy MichaudSodium [Moles/Vol]139 mmol/ELibtqz632-625Tcm [facility] Comment on above:Performed By: #### LIPA, CMP #### [facility] [address] [place] [address] Dr. Ruddy MichaudUrea nitrogen [Mass/Vol]9.0 mg/dLNormal7.0-18.0The [facility] HospitalComment on above:Performed By: #### LIPA, CMP #### [facility] [address] [place] [address] Dr. Ruddy MichaudUrea nitrogen/Creatinine [Mass ratio]13.4 mg/mgNoWayne HealthCare Main CampusComment on above:Performed By: #### LIPA, CMP #### [facility] [address] [place] [address] Dr. Ruddy iMchaudXR KUB 1 VIEWon [id number] KUB 1 VIEWEXAM: XR KUB 1 VIEW HISTORY: Left lower quadrant pain COMPARISON: KUB dated 11/08/2021. TECHNIQUE: Supine view of the abdomen FINDINGS: Nonspecific bowel gas pattern is seen. No air-filled distended loops of bowel is seen to suggest bowel obstruction. Curvilinear metallic density is seen projecting over the left pelvis, with a stable appearance prior examination, which may be related to essure coil. No obvious pathologic calcification is seen. No acute osseous abnormality seen. IMPRESSION: No acute abnormal abnormality. Small curvilinear metallic density is seen projecting over the left pelvis, with a stable appearance prior examination, which may be related to essure coil. Electronically authenticated by: GUICHO PUENTES Date: 2022-06-24 18:06NoWayne HealthCare Main CampusUS SINGLE QUAD RT UPPERon [id number] SINGLE QUAD RT UPPER EXAM: US SINGLE QUAD RT UPPER HISTORY: . Abdominal pain . COMPARISON: None. TECHNIQUE: Grayscale and color imaging was performed FINDINGS: The pancreas is grossly unremarkable. Scanning of the liver demonstrates increased echogenicity of liver consistent with fatty infiltration of the liver. The liver is enlarged measuring 22 cm. Color-flow is noted in the portal and hepatic veins. Right kidney measures 12.4 x 5.3 x 5.6 cm. No renal cortical masses or hydronephrosis is noted. The gallbladder is absent. Common bile duct is normal measuring 3 mm. Minimal ascites was noted in the right upper quadrant. IMPRESSION: 1. Gallbladder is absent. 2. The liver is enlarged measuring 22 cm. There is diffuse increased echogenicity of liver consistent with fatty infiltration of the liver. 3. Trace ascites noted in the right upper quadrant. 4. The remainder the right upper quadrant was unremarkable. Electronically authenticated by: DEAN ANAYA Date: 2022-05-31 10:48[facility] CenterCOMPREHENSIVE METABOLIC PANELon [id number] [Mass/Vol]4.0 g/dLNormal3.6-5.1Quest DiagnosticsComment on above:Performed By: #### 2390, 39767 #### [facility] [address], [address] [place] [id number] [employer]: Donn Baker MDAlbumin/Globulin [Mass ratio]1.6 {ratio}Normal 1.0-2.5Quest DiagnosticsComment on above:Performed By: #### 7600, 36073 #### [facility] of [address], [address] [place] [address] [employer]: Donn Baker MDALP [Catalytic activity/Vol]77 U/ZAbawql51-055 [facility] DiagnosticsComment on above:Performed By: #### 7600, 42097 #### [facility] of [address], [address] [place] [address] [employer]: Donn Baker MDALT [Catalytic activity/Vol]22 U/LNormal6-29 [facility] DiagnosticsComment on above:Performed By: #### 7600, 94776 #### [facility] of [address], [address] [place] [address] [employer]: Donn Baker MDAST [Catalytic activity/Vol]20 U/FZarzba05-46 [facility] DiagnosticsComment on above:Performed By: #### 7600, 21117 #### [facility] of [address], [address] [place] [address] [employer]: Donn Baker MDBilirubin [Mass/Vol]0.7 mg/dLNormal0.2-1.2 [facility] DiagnosticsComment on above:Performed By: #### 7600, 51313 #### [facility] of [address], [address] [place] [address] [employer]: Donn Baker MDBUN/CREATININE RATIONOT APPLICABLENormal6-22 [facility] DiagnosticsComment on above:Performed By: #### 7600, 66321 #### [facility] of [address], [address] [place] [address] [employer]: Donn Baker MDCalcium [Mass/Vol]8.9 mg/dLNormal8.6-10.2Quest DiagnosticsComment on above:Performed By: #### 7600, 57626 #### [facility] of [address], [address] [place] [address] [employer]: Donn Baker MDChloride [Moles/Vol]102 mmol/OHkmtyl38-322 [facility] DiagnosticsComment on above:Performed By: #### 7600, 33400 #### [facility] of [address], [address] [place] [address] [employer]: Donn Baker MDCO2 [Moles/Vol]25 mmol/EJdoehp16-04Oxema DiagnosticsComment on above:Performed By: #### 7600, 75251 #### [facility] of [address], [address] [place] [address] [employer]: Donn SAVAGEreatinine [Mass/Vol]0.50 mg/dLNormal0.50-1.10 [facility] DiagnosticsComment on above:Performed By: #### 7600, 78034 #### [facility] of [address], [address] [place] [address] [employer]: Donn Baker MDeGFR NON-AFR. MRCKNNBO050 mL/min/1.25u0Jytist> OR = 60Quest DiagnosticsComment on above:Performed By: #### 7600, 61582 #### [facility] of [address] [place] [address] [employer]: Donn Baker MDGFR/1.73 sq M.predicted among blacks MDRD (S/P/Bld) [Vol rate/Area]140 mL/min/{1.73_m2}Normal> OR = 60[facility] Comment on above:Performed By: #### 7600, 88667 #### [facility] of [address], [address] [place] [address] [employer]: Donn Baker MDGlobulin (S) [Mass/Vol]2.5 g/dLNormal1.9-3.7 [facility] DiagnosticsComment on above:Performed By: #### 7600, 33369 #### [facility] of [address] [place] [address] [employer]: Donn Baker MDGlucose [Mass/Vol]91 mg/oIGdklbp54-14Zadmo DiagnosticsComment on above:Result Comment: Fasting reference intervalPerformed By: #### 7600, 58250 #### [facility] of [address] [place] [address] [employer]: Donn Baker MDPotassium [Moles/Vol]4.0 mmol/LNormal3.5-5.3 [facility] DiagnosticsComment on above:Performed By: #### 7600, 80294 #### [facility] of [address] [place] [address] [employer]: Donn Baker MDProtein [Mass/Vol]6.5 g/dLNormal6.1-8.1Quest DiagnosticsComment on above:Performed By: #### 7600, 87336 #### [facility] [place] [address] [employer]: Donn Baker MDSodium [Moles/Vol]138 mmol/ANgdcig686-882Dukxo DiagnosticsComment on above:Performed By: #### 7600, 17366 #### [facility] [place] [address] [employer]: Donn Baker MDUrea nitrogen [Mass/Vol]10 mg/dLNormal7-25 Quest DiagnosticsComment on above:Performed By: #### 7600, 15113 #### [facility] of [address] [address] [employer]: Donn Baker MDLIPID PANEL, STANDARDon 62-49-2938Ydfgoveecaq [Mass/Vol]173 mg/dLNormal<200Quest DiagnosticsComment on above:Order Comment: FASTING:YES FASTING: YESPerformed By: #### 7600, 83710 #### [facility] of [place] [address] [employer]: Donn Baker MDCholesterol in HDL [Mass/Vol]46 mg/dLLow> OR = 50Quest DiagnosticsComment on above:Order Comment: FASTING:YES FASTING: YESPerformed By: #### 7600, 20588 #### [facility] [address], [address] [place] [address] [employer]: Donn SAVAGEholesterol in LDL [Mass/Vol]98 mg/dLNormal [facility] DiagnosticsComment on above:Order Comment: FASTING:YES FASTING: YESResult Comment: Reference range: <100 Desirable range <100 mg/dL for primary prevention; <70 mg/dL for patients with CHD or diabetic patients with > or = 2 CHD risk factors. LDL-C is now calculated using the Cruz calculation, which is a validated novel method providing better accuracy than the Friedewald equation in the estimation of LDL-C. Ulices WOLFF et al. CHERELLE. 2013;310(19): 5357-2533 (http://education.eduClipper.[employer]/faq/THW170)Performed By: #### 2840, 84952 #### [facility] [address], [address] [place] [address] [employer]: Donn SAVAGEholestkj.total/Cholesterol in HDL [Mass ratio]3.8 {ratio}Normal<5.0Quest DiagnosticsComment on above:Order Comment: FASTING:YES FASTING: YESPerformed By: #### 7600, 77475 #### [facility] [address], [address] [place] [address] [employer]: Donn Baker MDNON HDL NWIHTSHTCQL207 mg/dL (calc)Normal<130 Quest DiagnosticsComment on above:Order Comment: FASTING:YES FASTING: YESResult Comment: For patients with diabetes plus 1 major ASCVD risk factor, treating to a non-HDL-C goal of <100 mg/dL (LDL-C of <70 mg/dL) is considered a therapeutic option.Performed By: #### 7600, 35248 #### [facility] [address], [address] [place] [address] [employer]: Donn Baker MDTriglyceride [Mass/Vol]191 mg/dLHigh<150Quest DiagnosticsComment on above:Order Comment: FASTING:YES FASTING: YESPerformed By: #### [id number], [id number] #### [facility] [address], [address] [place] [address] Coal Bagger: Donn Baker MD Vital Signs Date TimeVital SignValuePerforming HezfloofgWvrakmev61-65-5141 18:16-0400Body .1 cmDennis Furlong DO Work Phone: [phone] [place], [place] 9742608-15-2025 18:16-0400 Body mass index (BMI) [Ratio]67.3 kg/j7Jfwcux Furlong DO Work Phone: 1(889)[address] [place], [place] 1298008-15-2025 18:16-0400 Body ecunlujkwqp24.9 [degF]Marco Antonio Furlong DO Work Phone: 1(698)[address]08-15-2025 18:16-0400 Body .7 kgDennis Furlong DO Work Phone: 1(554)665-[address] [place], [place] 9742608-15-2025 18:16-0400 Diastolic blood wdxoordd55 mm[Hg]Marco Antonio Furlong DO Work Phone: 1(917)404-[address] [place], [place] 9742608-15-2025 18:16-0400 Heart rate95 /minDennis Furlong DO Work Phone: 1(100)675-[address] [place], [place] 9742608-15-2025 18:16-0400 Respiratory rate18 /minDennis Furlong DO Work Phone: 1(973)923-[address] [place], [place] 9742608-15-2025 18:16-0400 SaO2% (BldA) [Mass fraction]98 %Marco Antonio Furlong DO Work Phone: 1(660)5-[address] [place], [place] 9742608-15-2025 18:16-0400 Systolic blood sywqhdcd172 mm[Hg]Marco Antonio Furlong DO Work Phone: 1(402)839-[address] [place], [place] 9742608-12-2025 11:20-0400 Body wfaoyw029.1 cmDennis Furlong DO Work Phone: 1419)[facility] [place], [place] 9742608-12-2025 11:20-0400 Body mass index (BMI) [Ratio]67.3 kg/k7Ylkjnn Furlong DO Work Phone: 1419)[address] [place], [place] 4973808-12-2025 11:20-0400 Body dhyjjcmiquh14.8 [degF]Marco Antonio Furlong DO Work Phone: [phone])[address] [place], [place] 1298008-12-2025 11:20-0400 Body jehysd589.7 kgDennis Furlong DO Work Phone: [phone])[address] [place], [place] 1298008-12-2025 11:20-0400 Diastolic blood gyycupim71 mm[Hg]Marco Antonio Furlong DO Work Phone: [phone])[address] [place], [place] 1298008-12-2025 11:20-0400 Heart rate97 /minDennis Furlong DO Work Phone: [phone])[address] [place], [place] 1298008-12-2025 11:20-0400 SaO2% (BldA) [Mass fraction]98 %Marco Antonio Furlong DO Work Phone: [phone])[address] [place], [place] 1298008-12-2025 11:20-0400 Systolic blood hpxmjtef737 mm[Hg]Marco Antonio Furlong DO Work Phone: 1419)[address] [place], [place] 1298007-28-2025 17:45-0400 Body ehbjts558.1 cmDennis Furlong DO Work Phone: [phone])[address] [place], [place] 1298007-28-2025 17:45-0400 Body mass index (BMI) [Ratio]68.7 kg/h7Fajiax Furlong DO Work Phone: 1419)[address] [place], [place] 1298007-28-2025 17:45-0400 Body unaeedaxqjo29.6 [degF]Marco Antonio Furlong DO Work Phone: 1419)[address] [place], [place] 1298007-28-2025 17:45-0400 Body yjsojy219.33 kgDennis Furlong DO Work Phone: [facility]07-28-2025 17:45-0400 Diastolic blood rceurtwf88 mm[Hg]Marco Antonio Furlong DO Work Phone: [facility]07-28-2025 17:45-0400 Heart rate98 /minDennis Furlong DO Work Phone: [facility]07-28-2025 17:45-0400 Respiratory rate19 /minDennis Furlong DO Work Phone: [facility]07-28-2025 17:45-0400 SaO2% (BldA) [Mass fraction]98 %Marco Antonio Mendenhalllong DO Work Phone: [facility]07-28-2025 17:45-0400 Systolic blood bbroxxqr785 mm[Hg]Marco Antonio Mednenhalllong DO Work Phone: [facility]02-28-2025 09:59-0500 Body osxsyv577.1 cmMarly Mckeon DATA WAREHOUSE MANAGER-MACHINED PARTS QUALITY INSPECTOR Work Phone: [facility]02-28-2025 09:59-0500Body mass index (BMI) [Ratio]66.93 kg/v0AfjjzraMrly Mckeon DATA WAREHOUSE MANAGER-MACHINED PARTS QUALITY INSPECTOR Work Phone: [facility]02-28-2025 09:59-0500Body qdtacolvgob94.6 [degF]Marly Mckeon DATA WAREHOUSE MANAGER-MACHINED PARTS QUALITY INSPECTOR Work Phone: [facility]02-28-2025 09:59-0500Body jvlfeg698.44 kgBrtabitha Mckeon DATA WAREHOUSE MANAGER-MACHINED PARTS QUALITY INSPECTOR Work Phone: [facility]02-28-2025 09:59-0500Heart rate 79 /minBrtabitha Mckeon DATA WAREHOUSE MANAGER-MACHINED PARTS QUALITY INSPECTOR Work Phone: [facility]02-28-2025 09:59-0500 Respiratory rate18 /minBriana Margaret DATA WAREHOUSE MANAGER-MACHINED PARTS QUALITY INSPECTOR Work Phone: [facility] Qulhwv78-33-9220 09:59-5078NgO4% (BldA) [Mass fraction]98 %Marly Mckeon APRN-MACHINED PARTS QUALITY INSPECTOR Work Phone: [facility] Yxpvjm50-81-2224 12:07-0500Diastolic blood npgjtegw78 mm[Hg]Marco Antonio Furlong DO Work Phone: [facility]-30-2025 12:07-0500Systolic blood dtjwzkaj432 mm[Hg]Marco Antonio Furlong DO Work Phone: [facility]-30-2025 11:40-0500Body emstuz841.1 cmDeneric Mendenhalllong DO Work Phone: [facility]-30-2025 11:40-0500Body mass index (BMI) [Ratio]66.56 kg/b2Bprwiw Furlong DO Work Phone: [facility]01-30-2025 11:40-0500Body wbdwnilgibb43.01 [degF]Marco Antonio Mendenhalllong DO Work Phone: [facility]01-30-2025 11:40-0500Body adposq200.44 kgDeneric Mendenhalllong DO Work Phone: [facility]01-30-2025 11:40-0500Heart rate 81 /minDazaliais Furlong DO Work Phone: [facility]01-30-2025 11:40-0500 Respiratory rate18 /minDennis Furlong DO Work Phone: [facility]01-30-2025 11:40-6735KtY4% (BldA) [Mass fraction]98 %Marco Antonio Mendenhalllong DO Work Phone: [facility] Ppuahw31-49-4503 15:01-0500Body dtpeqp327.1 cmMarly Mckeon APRN-MACHINED PARTS QUALITY INSPECTOR Work Phone: [facility]-23-2025 15:01-0500Body mass index (BMI) [Ratio]66.36 kg/m3GyhaqwMarly Mckeon APRN-MACHINED PARTS QUALITY INSPECTOR Work Phone: [facility] [employer] Jnsnuz07-31-0244 15:01-0500Body orppjrxymqn16.1 [degF]Marly Mckeon DATA WAREHOUSE MANAGER-MACHINED PARTS QUALITY INSPECTOR Work Phone: [facility] [employer] Jwejtw01-27-7469 15:01-0500Body zswqus575.89 kgMarly Mckeon DATA WAREHOUSE MANAGER-MACHINED PARTS QUALITY INSPECTOR Work Phone: [facility] [employer] Kelpnv95-74-6622 15:01-0500Diastolic blood fvykgecg60 mm[Hg]Marly Mckeon APRN-MACHINED PARTS QUALITY INSPECTOR Work Phone: [facility] [employer] Snperb31-00-0047 15:01-0500Heart rate 93 /minBrtabitha Mckeon DATA WAREHOUSE MANAGER-MACHINED PARTS QUALITY INSPECTOR Work Phone: [facility] [employer] Wkevfc63-96-7128 15:01-0500 Respiratory rate18 /minBrtabitha Mckeon APRN-MACHINED PARTS QUALITY INSPECTOR Work Phone: [facility] [employer] Kspteq87-84-9352 15:01-1321CsZ0% (BldA) [Mass fraction]98 %Marly Mckeon APRN-MACHINED PARTS QUALITY INSPECTOR Work Phone: [facility] [employer] Vgggja78-28-4493 15:01-0500Systolic blood pggyavqk375 mm[Hg]Marly Mckeon DATA WAREHOUSE MANAGER-MACHINED PARTS QUALITY INSPECTOR Work Phone: [facility] [employer] Reqvqf08-14-1546 10:23-0500Body .1 cmVmaniarnol Washington DATA WAREHOUSE MANAGER-MACHINED PARTS QUALITY INSPECTOR Work Phone: [facility]01-20-2025 10:23-0500Body mass index (BMI) [Ratio]67.06 kg/w3Kiekhjxarnol [place] DATA WAREHOUSE MANAGER-MACHINED PARTS QUALITY INSPECTOR Work Phone: [facility] [employer] Iiyfvy51-65-6011 10:23-0500Body rfwkpajdxcn39.01 [degF]Casimirosamina Washington DATA WAREHOUSE MANAGER-MACHINED PARTS QUALITY INSPECTOR Work Phone: [facility] [employer] Jvjprc01-12-5424 10:23-0500Body .8 kgCasimiro Washington DATA WAREHOUSE MANAGER-MACHINED PARTS QUALITY INSPECTOR Work Phone: [facility]01-20-2025 10:23-0500Diastolic blood czqbuptk30 mm[Hg]Casimiro Washington DATA WAREHOUSE MANAGER-MACHINED PARTS QUALITY INSPECTOR Work Phone: [facility] [employer] SystemComment on above:cant hear 12-21-2024 10:23-0500Heart rate80 /minCasimiro Washington DATA WAREHOUSE MANAGER-MACHINED PARTS QUALITY INSPECTOR Work Phone: [facility] [employer] Dlcihf64-26-3785 10:23-0500 Respiratory rate18 /Kedar Washington DATA WAREHOUSE MANAGER-MACHINED PARTS QUALITY INSPECTOR Work Phone: [facility]01-20-2025 10:23-1582SxJ8% (BldA) [Mass fraction]98 %Casimiro Washington APRN-MACHINED PARTS QUALITY INSPECTOR Work Phone: [facility] [employer] Kkyvnc96-09-4885 10:23-0500Systolic blood mm[Hg]Casimiro Washington APRN-MACHINED PARTS QUALITY INSPECTOR Work Phone: [facility] [employer] [facility] AlmaComment on above:cant hear 12-19-2024 11:28-0500Body ahfuio654.1 cm[facility] 12-19-2024 11:28-0500Body mass index (BMI) [Ratio]66.9 kg/t4XobfosqmcSelect [facility]01-18-2025 11:28-0500Body pjekwwbedxy50.6 [degF][facility]01-18-2025 11:28-0500Body .34 kg[facility]01-18-2025 11:28-0500Diastolic blood yzhljrsb39 mm[Hg][facility]01-18-2025 11:28-0500Heart rate95 /[facility]01-18-2025 11:28-0500Respiratory rate18 /[facility]01-18-2025 11:28-8128DtS6% (BldA) [Mass fraction]99 %[facility]01-18-2025 11:28-0500Systolic blood mm[Hg] [facility]10-28-2024 16:03-0400Body iklinm698.1 cmMarco Antonio Guidryng DO Work Phone: [facility] [employer] Rwvzou09-35-7113 16:03-0400Body mass index (BMI) [Ratio]66.5 kg/e8Svuurf Furlong DO Work Phone: [facility] [employer] Zuxahd66-11-0781 16:03-0400Body rnbakizwyxd10.4 [degF]Marco Antonio Guidryng DO Work Phone: [facility] [employer] Yqreru91-99-7234 16:03-0400Body .26 kgMarco Antonio Guidryng DO Work Phone: [facility] [employer] Ndonxq59-57-5590 16:03-0400Diastolic blood mm[Hg]Marco Antonio Mendenhalllong DO Work Phone: [facility] Air[employer]Cfwljx65-57-0804 16:03-0400Heart rate 108 /Marcie MendenhallIndependang DO Work Phone: [facility] [employer] Aqebiu03-09-0177 16:03-0400 Respiratory rate20 /Marcie MendenhallIndependang DO Work Phone: [facility] [employer] Mlgqjf56-84-3877 16:03-0220SwF3% (BldA) [Mass fraction]98 %Marco Antonio MendenhallIndependang DO Work Phone: [facility] [employer] Shmfrl84-85-3725 16:03-0400Systolic blood mm[Hg]Marco Antonio Guidryng DO Work Phone: [facility] [employer] Acjhfz78-09-8597 15:41-0400Body ftgydg502.1 cm[facility]10-25-2024 15:41-0400Body mass index (BMI) [Ratio]66.2 kg/d0ZiayiawmjSelect [facility]10-25-2024 15:41-0400Body kgpyjddopfr97.7 [degF][facility]10-25-2024 15:41-0400Body jgavuh627.64 kg[facility]10-25-2024 15:41-0400Diastolic blood mm[Hg][facility] 09-25-2024 15:41-0400Heart trrp850 /[facility] 09-25-2024 15:41-0400Respiratory rate18 /[facility] 09-25-2024 15:41-8352YxO3% (BldA) [Mass fraction]98 %[facility]10-25-2024 15:41-0400Systolic blood sfsjuaza143 mm[Hg][facility]08-26-2024 15:44-0400Body .1 cmDennis Kitchensurfinglong DO Work Phone: [facility]08-26-2024 15:44-0400Body mass index (BMI) [Ratio]67.3 kg/e6Bdhmob Furlong DO Work Phone: [facility]08-26-2024 15:44-0400Body ulqfvrnxppd32.1 [degF]Marco Antonio Furlong DO Work Phone: [facility]08-26-2024 15:44-0400Body tornas117.44 kgDennis Furlong DO Work Phone: [facility]08-26-2024 15:44-0400Diastolic blood eojqnefm84 mm[Hg]Marco Antonio Furlong DO Work Phone: [facility]08-26-2024 15:44-0400Heart rate 111 /minDennis Furlong DO Work Phone: [facility]08-26-2024 15:44-0400 Respiratory rate18 /minDennis Furlong DO Work Phone: [facility]08-26-2024 15:44-6824XsN2% (BldA) [Mass fraction]97 %Marco Antonio Furlong DO Work Phone: [facility] Czzvnm95-35-8818 15:44-0400Systolic blood opwpomdj783 mm[Hg]Marco Antonio Munguia DO Work Phone: [facility] [employer] Qwqtyf83-06-6087 17:03-4119MgS7% (BldA) [Mass fraction]95 %Marco Antonio Munguia DO Work Phone: [facility] Klvdit27-20-5030 17:02-0400Body ouxjullgdls055.89 [degF]Marco Antonio Munguia DO Work Phone: [facility] Oxqhfm02-60-9599 13:24-0400Body .1 cmMarly JAMES Work Phone: [facility] Dkwlra33-94-1803 13:24-0400Body mass index (BMI) [Ratio]64.63 kg/s9NjybllMarly Mckeon APRN-ADALBERTO Work Phone: [facility] Mzbefi20-76-3660 13:24-0400Body rqahdwyymli90 [degF]Marly Mckeon APRN-ADALBERTO Work Phone: [facility] Yhzhbv93-16-0864 13:24-0400Body zbaffe959.18 kgMarly Mckeon APRN-ADALBERTO Work Phone: [facility] Szsifj31-84-0813 13:24-0400Diastolic blood opuatppw81 mm[Hg]Marly Mckeon APRN-ADALBERTO Work Phone: [facility] Kwbzdq17-88-1323 13:24-0400Heart rate 77 /minMarly Mckeon APRN-ADALBERTO Work Phone: [facility] Nhjgbo89-88-7484 13:24-0400 Respiratory rate18 /minBrtabitha Mckeon APRN-MACHINED PARTS QUALITY INSPECTOR Work Phone: [facility] Jzcdoe17-89-9918 13:24-6258LeI8% (BldA) [Mass fraction]99 %Marly Mckeon DATA WAREHOUSE MANAGER-MACHINED PARTS QUALITY INSPECTOR Work Phone: [facility] Qpplml20-48-8450 13:24-0400Systolic blood xsnuwdwu758 mm[Hg]Marly Mckeon DATA WAREHOUSE MANAGER-MACHINED PARTS QUALITY INSPECTOR Work Phone: [facility] Jcizfp92-02-1099 14:52-0500Body edwknl395.1 cmXimena Thompson DATA WAREHOUSE MANAGER-CHASSIS DRIVER Work Phone: [facility] Bnjewj27-72-9864 14:52-0500Body mass index (BMI) [Ratio]65.86 kg/m2Ximena Thompson DATA WAREHOUSE MANAGER-CHASSIS DRIVER Work Phone: [facility] Fzjlqg39-44-9065 14:52-0500Body mpnikkujzae51.91 [degF]Ximena Thompson DATA WAREHOUSE MANAGER-CHASSIS DRIVER Work Phone: [facility] Glmvnb66-87-4755 14:52-0500Body jfogjs890.53 kgXimena Thompson DATA WAREHOUSE MANAGER-CHASSIS DRIVER Work Phone: [facility] Hoxauh40-96-1065 14:52-0500Diastolic blood dakcrncb30 mm[Hg]Ximena Thompson DATA WAREHOUSE MANAGER-CHASSIS DRIVER Work Phone: [facility] Imbscr03-31-8122 14:52-0500Heart rate 87 /minXimena Thompson DATA WAREHOUSE MANAGER-CHASSIS DRIVER Work Phone: [facility] Yymkie32-06-3034 14:52-5571AyV3% (BldA) [Mass fraction]100 %Ximena Thompson DATA WAREHOUSE MANAGER-CHASSIS DRIVER Work Phone: [facility] Vrqsyl24-84-9296 14:52-0500Systolic blood fppnyepw601 mm[Hg]Ximena Thompson DATA WAREHOUSE MANAGER-CHASSIS DRIVER Work Phone: [facility] Quaxmg75-85-0635 09:05-0400Body oozbqj479.74 Ania Phipps Other [employer] Other 06-24-2023 09:05-0400Body mass index (BMI) [Ratio] 62.25 kg/t0DyblpyAmy Phipps Other [employer] Other 06-24-2023 09:05-0400Body deunlyppfph20.9 [degF]Amy Phipps Other [employer] Other 06-24-2023 09:05-0400Body ecgmbc125.01 kgAmy Phipps Other [employer] Other 06-24-2023 09:05-0400Respiratory rate18 /minAmy Phipps Other [employer] Other 06-24-2023 09:05-3831PcA5% (BldA) [Mass fraction]98 % Amy Phipps Other [employer] Other 04-14-2023 10:45-0400Diastolic blood iawcuelq50 mm[Hg] Sunita Berenice Shepherd DO Work Phone: [facility]04-14-2023 10:45-0400Heart rate81 /minCarmen Berenice Shepherd DO Work Phone: [facility]04-14-2023 10:45-0400 Respiratory rate16 /minCarmen Berenice Shepherd DO Work Phone: [facility]04-14-2023 10:45-5323BqW1% (BldA) [Mass fraction]98 %Sunita Berenice Shepherd DO Work Phone: [facility]04-14-2023 10:45-0400Systolic blood zhmvempm983 mm[Hg]Sunita Berenice Shepherd DO Work Phone: [facility]04-14-2023 09:40-0400Body zuedewwneyn67.3 [degF]Sunita Shepherd DO Work Phone: [facility] finals[facility]04-14-2023 06:30-0400Body .1 cmCarmen Berenice Shepherd DO Work Phone: [facility]04-14-2023 06:30-0400Body mass index (BMI) [Ratio]61.57 kg/e7Etgspwalise Shepherd DO Work Phone: [facility]04-14-2023 06:30-0400Body elilus087.83 kgCaralise Shepherd DO Work Phone: [facility] [employer] [facility] CENTERConservus InternationalSLJKRO38-67-6429 12:19-0400Body rnzwof081.1 cmDO Marco Antonio Autoniq Work Phone: [facility]07-28-2022 12:19-0400 Body bozjyc039.57 kgDO Marco Antonio Autoniq Work Phone: [facility]07-18-2022 12:00-0400 Body igfddo552.74 cmDavid Hykes Other [employer] Other 07-18-2022 12:00-0400Body mass index (BMI) [Ratio] 59.11 kg/u9Wbbqj Hykes Other [employer] Other 07-18-2022 12:00-0400Body .39 kgDavid Hykes Other [employer] Other 06-16-2022 11:15-0400Body izfhkd417.74 cmDavid Hykes Other [employer] Other 06-16-2022 11:15-0400Body mass index (BMI) [Ratio] 59.11 kg/c5Fhosu Hykes Other [employer] Other 06-16-2022 11:15-0400Body weltsa407.39 kgDavid Hykes Other [employer] Other 02-08-2022 13:45-0500Body tyrkrs728.74 cmDavid Hykes Other [employer] Other 02-08-2022 13:45-0500Body mass index (BMI) [Ratio] 59.49 kg/m4Hinab Hykes Other [employer] Other 02-08-2022 13:45-0500Body durzuf291.43 kgDavid Hykes Other [employer] Other 02-08-2022 13:45-0500Diastolic blood xgrjswah71 mm[Hg] Dean Schwartzleroy Other [employer] Other 02-08-2022 13:45-0500Systolic blood epnzmbfu073 mm[Hg] Dean So Other [employer] Other Encounters Encounter DateEncounter TypeCare ProviderFacilityStart: 10-06-2025 End: 86-25-0077UfjpoxHrkxnd G Furlong DO Work Phone: [facility] Family MedicineStart: 09-22-2025 End: 29-03-3506lfmufcjbtpNVTQHWE A BROWNFacility:[facility]art: 09-09-2025 End: 82-96-7465rpcdzqmbnnWYSVTDA A GORTYFacility:[facility] Hospitaltart: 09-05-2025 End: 82-56-6294XddmmzZevwup G Furlong DO Work Phone: [facility] MedicineStart: 07-26-2025 End: 91-51-5548MleriqZxux Cooper CMAProMedica Physicians [facility] MedicineStart: 07-16-2025 End: 26-02-0113mkfwjxvzwnOgumif Furlong DO Work Phone: [facility] Work Phone: Start: 07-16-2025 End: 33-20-4167Bocixwt encounter procedureTyra Freedman DATA WAREHOUSE MANAGER-[facility] Work Phone: Start: 07-13-2025 End: 23-03-5387znxdbtmeenLoinlb Furlong DO Work Phone: [facility] Work Phone: Start: 07-13-2025 End: 08-63-1853Ohmtukg encounter procedureKeshia Freedman DATA WAREHOUSE MANAGER-[facility] Work Phone: Start: 07-02-2025 End: 76-58-8090FzuqtoDcfyys G Furlong DO Work Phone: [facility] MedicineStart: 06-28-2025 End: 97-69-6242xclzehtffkJaryql Furlong DO Work Phone: [facility] Work Phone: Start: 06-28-2025 End: 96-04-7865Phmsefa encounter procedurePhilipshawn Fei Freedman DATA WAREHOUSE MANAGER-[facility] Work Phone: Start: 06-25-2025 End: 57-71-9114wrviyoibfuIBWZDK B BERRY IIFacility:[facility] Start: 06-25-2025 End: 98-07-8746Dgtomznvmiqx consultation with Tony Colon APRN.MACHINED PARTS QUALITY INSPECTOR Work Phone: TelemedicineComment on above:Viral URI with cough (Primary Dx)Start: 05-08-2025 End: 74-35-5320WadxfrMrtnke G Furlong DO Work Phone: [facility] MedicineStart: 03-24-2025 End: 63-10-8132IrsfufPzqos [place] [facility] CENTERProMediny [facility] MedicineStart: 03-01-2025 End: 69-37-1559Pfslfk OnlyMarco Antonio Guidryng DO Work Phone: [facility] MedicineStart: 01-29-2025 End: 86-44-7615Jktjqr outpatient visit 15 minutesMarly Mckeon DATA WAREHOUSE MANAGER-[employer] Work Phone: [facility] MedicineComment on above:Essential hypertension (Primary Dx); Acute urticariaStart: 01-29-2025 End: 89-29-0210nfqpcgpkupCHIOETSmallpox Hospital Ambulatory PPGStart: 01-21-2025 End: 72-12-3429qeajqcbbarOVUIGGSt. Francis Hospitaltart: 01-07-2025 End: 86-15-9170Btowtv Maico Mckeon DATA WAREHOUSE MANAGER-MACHINED PARTS QUALITY INSPECTOR Work Phone: [facility] MedicineStart: 44-99-8019bplyumuxauSNQWTTParkview [facility] Ambulatory PPGStart: 12-31-2024 End: 66-91-2399Ewtvrp outpatient visit 25 minutesMaroc Antonio Munguia DO Work Phone: [facility] - [facility] BerrienComment on above:Essential hypertension (Primary Dx); Class 3 severe obesity due to excess calories without serious comorbidity with body mass index (BMI) of 60.0 to 69.9 in adult ([facility]); Encounter for screening mammogram for malignant neoplasm of breast; Herpes zoster without complicationStart: 12-31-2024 End: 19-34-3948iudwepeqnrWRHSNDMary [facility] Amb[facility] PPGStart: 12-25-2024 End: 28-32-2334Oulnno Maico Mckeon DATA WAREHOUSE MANAGER-MACHINED PARTS QUALITY INSPECTOR Work Phone: [facility] - Family MedicineStart: 12-24-2024 End: 60-27-5294Doawvv outpatient visit 15 minutesMarly Mckeon DATA WAREHOUSE MANAGER-MACHINED PARTS QUALITY INSPECTOR Work Phone: [facility] - Family MedicineComment on above:Herpes zoster conjunctivitis (Primary Dx)Start: 12-24-2024 End: 40-63-0109uajkftyyhqMIKNTVSaint Agnes Medical Center Ambulatory PPGStart: 12-21-2024 End: 96-49-0185Sqmcsb outpatient visit 15 minutesCasimiro Danny Felix DATA WAREHOUSE MANAGER-MACHINED PARTS QUALITY INSPECTOR Work Phone: [facility] - Family MedicineComment on above:Essential hypertension (Primary Dx); Hordeolum externum of left eye, unspecified eyelidStart: 12-21-2024 End: 22-45-4791adfspdlbarOABRIWAOcean Beach Hospital Ambulatory PPG Start: 12-21-2024 End: 72-62-6439Fhffxzghz department patient visitKindred Healthcaretart: 12-19-2024 End: 12-71-3934zghivxjfiaOmeozmbcaAvita [facility] Work Phone: Start: 12-19-2024 End: 20-91-3757Jfswwls encounter procedureGood [facility] Hospital [facility] Work Phone: Start: 09-28-2024 End: 42-00-7604Hpyknh outpatient visit 15 minutesMarco Antonio Munguia DO Work Phone: [facility] - Family MedicineComment on above:Pharyngitis, unspecified etiology (Primary Dx); Tonsillar hypertrophyStart: 09-28-2024 End: 63-28-6604gayapdibmwPSOTDNParkview [facility] Ambulatory PPGStart: 09-25-2024 End: 06-96-3663eihtoimfzxPwpviayizAvita Health System [facility] Work Phone: Start: 09-25-2024 End: 38-61-3767Wfofumt encounter procedureCecilio Physician Group-[facility] Inocencio Work Phone: Start: 08-13-2024 End: 24-03-7771Cyeahm OnlyGaryeric Munguia DO Work Phone: [facility] MedicineStart: 08-04-2024 End: 05-98-0935HtunkuMmqlph L Rauch DATA WAREHOUSE MANAGER-MACHINED PARTS QUALITY INSPECTOR Work Phone: [facility] MedicineStart: 07-30-2024 End: 54-36-9489FxmymhOowdso John Paul Mendenhallgaurangfarzana DO Work Phone: [facility] MedicineStart: 07-28-2024 End: 58-95-2151Qthfzigqn department patient visitRACHEL D [facility] Centertart: 07-28-2024 End: 71-26-5356Pvsdgltwq department patient visitMARCO ANTONIO Coker [facility] Centertart: 07-27-2024 End: 11-31-5854Jyjwgp outpatient visit 15 minutesMarco Antonio John Paul Munguia DO Work Phone: [facility] Medicine - Family MedicineComment on above:COVID-19 (Primary Dx)Start: 07-27-2024 End: 56-53-2836zfdbvohqukVMTMMK John Paul [facility]HALLP[facility] Ambulatory PPGStart: 07-18-2024 End: 24-78-6671Snibqyryp department patient visitRYAN [facility] Hospitaltart: 07-14-2024 End: 31-04-8585Rgtjhn outpatient visit 10 minutesGaryeric Munguia DO Work Phone: [facility] Medicine - Family MedicineComment on above:COVID-19 (Primary Dx)Start: 07-14-2024 End: 95-89-8394vgogosfsmqPUTRCE John Paul [facility] Ambulatory PPGStart: 07-14-2024 End: 01-11-4407Cgxbrtbye Latisha Munguia DO Work Phone: [facility] - Family MedicineStart: 06-25-2024 End: 71-93-4537EmlshbJogpqc L Rauch DATA WAREHOUSE MANAGER-MACHINED PARTS QUALITY INSPECTOR Work Phone: [facility] - Family MedicineStart: 05-14-2024 End: 53-41-4031YypltqJmff Rose Kuns DATA WAREHOUSE MANAGER-CHASSIS DRIVER Work Phone: [facility] - Family MedicineStart: 04-16-2024 End: 59-66-5254Ikbigc outpatient visit 15 lizzieXimena Thompson DATA WAREHOUSE MANAGER-CHASSIS DRIVER Work Phone: [facility] Internal Medicine - Family MedicineComment on above:Benign paroxysmal positional vertigo, unspecified laterality (Primary Dx)Start: 04-16-2024 End: 97-04-7103wegesluusvQRVIRiver's Edge Hospital Ambulatory PPGStart: 02-26-2024 End: 96-40-3267Akzikw outpatient visit 15 minutesMarly Mckeon DATA WAREHOUSE MANAGER-MACHINED PARTS QUALITY INSPECTOR Work Phone: [facility] MedicineComment on above:Essential hypertension (Primary Dx); Fever, unspecified fever cause; Severe obesity (BMI >= 40) ([facility])Start: 02-26-2024 End: 86-61-8692wplubmuzruIRXFOS L RAULUniversity [facility]als [facility] Ambulatory PPGStart: 39-18-3653HizgvtQmlh Rose Kuns DATA WAREHOUSE MANAGER-CHASSIS DRIVER Work Phone: [facility] - Family MedicineStart: 61-83-5334Tmfowc OnlyBriana L Margaret DATA WAREHOUSE MANAGER-MACHINED PARTS QUALITY INSPECTOR Work Phone: [facility] - Family MedicineStart: 22-45-7471ErfdltRyimgv L Margaret DATA WAREHOUSE MANAGER-MACHINED PARTS QUALITY INSPECTOR Work Phone: [facility] MedicineStart: 12-17-2023 End: 89-22-8621zvfbvvivnpUWPFMercy Health Tiffin Hospitaltart: 12-17-2023 End: 35-89-7505Waficr outpatient visit 25 minutesXimena Thompson DATA WAREHOUSE MANAGER-CHASSIS DRIVER Work Phone: [facility] Medicine - Family MedicineComment on above:Essential hypertension (Primary Dx); Seborrhea capitis in adult; Anxiety; Obstructive sleep apneaStart: 05-25-2023 End: 71-84-0119fwcdzhhhdwHsejju Dymond Other [employer] Other Start: 69-48-3995Mfpilq outpatient visit 15 minutes Amy [facility] ClydeStart: 03-15-2023 End: 53-35-8418klqbjzkustCMQHRTSUNITA [facility] HospitalStart: 03-15-2023 End: 95-93-7564Jgddbnxfvf hospital visit by Adam Shepherd DO Work Phone: [facility] ORComment on above:Post-op pain (Primary Dx); PainStart: 03-05-2023 End: 28-42-6580outjrfygsaFWRRYWVidhi [facility] HospitalStart: 03-05-2023 End: 16-99-9262Tidqqsgmw for other preprocedural examinationDANIDENIS Pandey SanamMt. Sinai Hospitaltart: 03-05-2023 End: 06-52-6891Mgxgxouwh for preprocedural respiratory examinationDANIDENIS Pandey ELIO [facility] HospitalStart: 03-05-2023 End: 95-91-9101Ayvwonu encounter status[address] RadiologyStart: 03-05-2023 End: 60-39-0923Vhqjucqykd hospital visit by physicianAlice [facility] Jose Short [address] [place] [address] RadiologyComment on above:Pre-op chest exam; Pre-op testing; Pelvic pain; COVID-19 long hauler manifesting chronic dyspneaStart: 59-47-6836fruwliqeonVH DENNIS G FURLONGFacility:Z6Ldutd: 08-26-2022 End: 51-61-6220eqdvhomsgzJH DENNIS G FURLONGFacility:K7Nhnpj: 07-09-2022 End: 35-26-6633ftwluabgucWfxzk Hykes Other [facility] [employer] Other Start: 33-29-8755Butuzwjdh encounterDavijohn Swenson GastroenterologyStart: 06-28-2022 End: 01-36-0765vrcisojngrWrmd Wmt Other [facility] [employer] Other Start: 54-38-6195Glbacmmsi encounterDawjohn BurkEast Liverpool City Hospital ClinicStart: 06-28-2022 End: 63-32-9907Fhhxnhk encounter procedureDO Marco Antonio Munguia Work Phone: [facility]-Digestive HealthStart: 06-26-2022 End: 78-39-7728beersjjcfeEATPCL BERENICE-ARMSTRONGFacility:A3Qpxcd: 06-24-2022 End: 44-01-1930dsjpxwkbtiBC MARCO ANTONIO GUIDRYNGFacility:S7Zluzz: 06-24-2022 End: 00-98-8043ilojkiktjaJklndjsHarry Israel APRN.CNP Work Phone: TelemedicineComment on above:Procedure, test, or exam not indicated (Primary Dx)Start: 06-24-2022 End: 83-53-0702Skfdgwsqulli consultation with Luc Israel APRN.CNP Work Phone: [facility] MAINStart: 06-18-2022 End: 18-70-1054eqebuzsaudRfniz Hykes Other [facility] [employer] Other Start: 10-00-5204Zphkmw outpatient visit 25 minutes Dean Swenson GastroenterologyStart: 30-33-0898Jrpleehkw encounterDavijohn Rizzo [facility] Centertart: 05-31-2022 End: 88-79-4856afnrwhnhaeUG DENNIS G FURLONGFacility:O1Npiln: 05-29-2022 End: 07-71-4394rjzjqiifnnUpsbh Hykes Other [employer] Other Start: 72-08-3887Esbwuaesq encounterDavid HykesFPG GastroenterologyStart: 05-17-2022 End: 04-54-3844buitrpifozNcmbb Hykes Other [employer] Other Start: 88-11-7063Asxect outpatient visit 15 minutes Dean SchwartzkesFIDEL GastroenterologyStart: 03-08-2022 End: 31-36-1511gtyutcgzsaKscya Hykes Other [employer] Other Start: 37-13-7838Bdhrrbfxu encounterDavid HykesFPG GastroenterologyStart: 03-05-2022 End: 93-97-9252brtvrjefwePtyty Hykes Other [employer] Other Start: 52-66-1917Nruuerbmk encounterDavid HykesFPG GastroenterologyStart: 01-09-2022 End: 37-92-2644naaolworeuFofmx Hykes Other [employer] Other Start: 42-14-9201Ynydxc outpatient visit 25 minutes Dean Swenson Gastroenterology Procedures DateProcedureProcedure DetailPerforming ClinicianStart: 07-83-5486Yaefr chest X-rayDennis Furlong DO Work Phone: Start: 16-08-3758DalisyvebzbAxbknn Rauch DATA WAREHOUSE MANAGER-MACHINED PARTS QUALITY INSPECTOR Work Phone: Start: 28-85-0820Iwpzk depression screening assessment Marly Mckeon DATA WAREHOUSE MANAGER-MACHINED PARTS QUALITY INSPECTOR Work Phone: Start: 99-99-0049Ztqbmbadt streptococcus group aDennis G Furlong DO Work Phone: Start: 97-25-8182Opuodx-up visitFollow-Richard MUNGUIAStart: 31-94-5655Sahlj depression screening assessmentMarco Antonio Guidryng DO Work Phone: Start: 50-95-9180Hrtcq depression screening assessment Marco Antonio Munguia DO Work Phone: Start: 95-04-3869BCLQ INFLUENZA A/INFLUENZA B/SARS-COV-2 VERITORMarly Mckeon DATA WAREHOUSE MANAGER-[facility] Work Phone: Start: 96-78-0912Zyviu depression screening assessment Marly Mckeon DATA WAREHOUSE MANAGER-[facility] Work Phone: Start: 30-11-1615Anitj depression screening assessment Ximena Thompson DATA WAREHOUSE MANAGER-CHASSIS DRIVER Work Phone: Start: 36-73-3045Apdctgvehpv during operationCarmen F Berenice Shepherd DO Work Phone: Start: 54-32-5002Zawkxoinok exam chest 2 viewsCarmen F Berenice Rodriguezg DO Work Phone: Start: 01-24-2023H/O: hysterectomyH/O: hysterectomy Ximena Thompson DATA WAREHOUSE MANAGER-CHASSIS DRIVER Work Phone: Start: 12-62-8776UV Fibroscan (Not Applicable)DO Marco Antonio Munguia Work Phone: Start: 63-52-3807Lgdax depression screening assessment Tiffanie Israel DATA WAREHOUSE MANAGER.[facility] Work Phone: Start: 32-72-3442TregcyzlybrIivbls Furlong DO Work Phone: Plan of Treatment DateCare ActivityDetailAuthorStart: 97-69-9361TYfQ,Tdap and Td Vaccines (2 - Td or Tdap)DTaP,Tdap and Td Vaccines (2 - Td or Tdap)[facility]edic Health SystemStart: 42-07-0417NQaY/Tdap/Td vaccine (2 - Td or Tdap)DTaP/Tdap/Td vaccine (2 - Td or Tdap)[facility] CENTERStart: 58-58-5510Cxxyy microalbumin profile DTaP,Tdap,Td Vaccine (2 - Td or Tdap)[facility] Hospitaltart: 55-75-2753Fqvyw BMI ScreeningAdult BMI ScreeningProSelect Medical [facility] Rehabilitation Hospital SystemStart: 32-74-1160Phkjxjv ScreeningTobacco ScreeningDayton VA Medical Centerca [facility] SystemStart: 27-39-7843Vsgkrullh for malignant neoplasm of breastProSelect Medical Trihealth Rehabilitation Hospital SystemStart: 93-41-7923Squwb BMI ScreeningAdult BMI ScreeningDayton VA Medical Centerca [facility] SystemStart: 17-56-2051Pxryyfk ScreeningTobacco ScreeningDayton VA Medical Centerca [facility] SystemStart: 38-74-3193Sswvd BMI ScreeningAdult BMI ScreeningDayton VA Medical Centerca [facility] SystemStart: 48-97-2022Zgotlveqpz ScreeningDepression ScreeningFisher-[facility] SystemStart: 88-85-9282Urkofqc ScreeningTobacco ScreeningDayton VA Medical Centerca [facility] SystemStart: 13-65-5623Esxqq BMI Follow Up PlanAdult BMI Follow Up PlanDayton VA Medical Centerca [facility] SystemStart: 12-21-2025 Adult BMI ScreeningAdult BMI ScreeningDayton VA Medical Centerca [facility] SystemStart: 12-21-2025 Tobacco ScreeningTobacco ScreeningDayton VA Medical Centerca [facility] SystemStart: 04-59-1993Dgvjy BMI ScreeningAdult BMI ScreeningDayton VA Medical Centerca [facility] SystemStart: 09-28-2025 Depression ScreeningDepression ScreeningDayton VA Medical Centerca Health SystemStart: 09-28-2025 Tobacco ScreeningTobacco ScreeningDayton VA Medical Centerca [facility] SystemStart: 08-02-2025 Influenza vaccinationDayton VA Medical Centerca [facility] SystemStart: 02-15-5287Oqbie BMI Screening Adult BMI ScreeningDayton VA Medical Centerca [facility] SystemStart: 61-21-4462Iytcacb Screening Tobacco ScreeningDayton VA Medical Centerca [facility] SystemStart: 89-86-1015Cuvao BMI Screening Adult BMI ScreeningDayton VA Medical Centerca [facility] SystemStart: 15-98-6904Bdktklmgrq Screening Depression ScreeningDayton VA Medical Centerca [facility] SystemStart: 45-50-2023Zfueujl Screening Tobacco ScreeningDayton VA Medical Centerca [facility] SystemStart: 30-69-3466Bykuwdl Screening Tobacco ScreeningProSelect Medical Tri[facility] Rehabilitation Hospital SystemStart: 95-79-3804Llqwp BMI Screening Adult BMI ScreeningProSelect Medical [facility] Rehabilitation Hospital SystemStart: 05-97-0347Ojkwxwhklp Screening Depression ScreeningProSelect Medical [facility] Rehabilitation [facility] SystemStart: 84-63-4785Kfrylal Screening Tobacco ScreeningProSelect Medical [facility] Rehabilitation [facility] SystemStart: 01-29-2025 End: 59-53-9469Msccxbc encounter pxzblbiaj94/28/2025 9:40 AM EST Office Visit [facility] [address] [place] [address] Marly Mckeon, DATA WAREHOUSE MANAGER-MACHINED PARTS QUALITY INSPECTOR [address] [facility] [place] [address] [facility] Barrowtart: 01-06-2025 End: 42-62-7618Edmfhve encounter xjdejtzlo86/05/2025 9:15 AM EST Appointment [facility] - Mammography/DEXA Imaging [address] [place] [address] BjfPgmvglTrinity Health System [facility] - Mammography/DEXA ImagingStart: 12-31-2024 End: 13-60-0932VSH Breast - bilateral screeningMammography screening bilateral with CAD Imaging Routine Encounter for screening mammogram for malignant neoplasm of breast Expected: 12/31/2024, Expires: 12/31/2025[facility] Work Phone: Comment on above:Expected: 12/31/2024,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 by viruses as well. Antibiotics are not recommended unless you have strep throat and only about 15 to 30 percent of pharyngitis cases in children and up to 10 percent of cases in adults are due to strep throat. Almost all cases of acute bacterial sinusitis resolve without antibiotics. There are a few situations in which antibiotics are needed, however. See your health care provider if you have a decreased immune system due to cancer, or if you are taking steroids, have HIV, or have had an organ transplant, or if your symptoms worsen or last longer than 7 to 10 days. Most often you should use the [id number] symptomatic treatment/s that your health care provider has recommended. These would include analgesic products such as acetaminophen (Tylenol ), decongestants, antihistamines, salt water gargles, drinking warm tea, and other methods to help treat the symptoms. Also remember that your best defense against getting the flu is to get a flu shot, but this does not, unfortunately, protect you against the many other viruses out in the environment that cause the other kinds of illnesses other than the actual influenza. documented in this encounterMiddletown Hospital07-25-2025 NoteHNO ID: [id number] Author: MAGGIE COLON APRN.ADALBERTO Service: ? Author Type: Nurse Practitioner Type: Progress Notes Filed: 06/25/2025 10:03 Note Text: Telemedicine Visit - Distance Health Virtual Visit Note Patient seen on [employer] Video Visit platform. Location of patient: [place], [place], I have communicated my name and active licensure. The patient's identity and physical location were verified at the time of this visit. Either the patient or their legal dental detail representative has been informed of the risks and benefits of -- and alternatives to -- treatment through a remote evaluation and consents to proceed with the evaluation remotely. Subjective The patient is a 44-year-old female with a history of HTN, presenting for evaluation of cough, headache, and fatigue. Cough: - Onset 8-9 days ago, progressively worsening. - Describes cough as awful last night. - Tried Mucinex yesterday, which seemed to exacerbate the cough. - Took Robitussin cough gels today. - Denies dyspnea or pleuritic pain. - Denies fever; O2 saturation 95-97%. - Recent negative COVID-19 test. Headache: - Onset 8-9 days ago, intermittent. - Associated with mild pressure, relieved by Motrin. - Denies facial tenderness or swelling. Fatigue: - Feels run down but not super sick. - Denies neck tenderness or swelling. - Denies sore throat. COVID-19: - Severe COVID-19 infection in 2020, requiring hospitalization. - Second COVID-19 infection in July of last year. - Overdue for COVID-19 vaccination; last dose was before the second infection. - Expresses anxiety about getting COVID-19 again, especially during this time of year (June or July). Allergies: - Taking Claritin daily. - Started using Flonase and saline spray 2 days ago. Hypertension: - Managed with medication. - Avoids medications containing D due to HTN. Supplements: - Taking zinc. - Has vitamin D and B12 but has not been taking them regularly. Family: - Son has similar symptoms, including headache, cough, and fever. - Son's COVID-19 test was negative. 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 Constitutional: (+) fatigue, (-) fever Head: (+) headache, (-) facial pain Ears/Nose/Mouth/Throat: (+) throat clearing sensation, (-) nasal congestion, (-) sore throat, (-) sinus pressure Neck: (-) neck tenderness, (-) neck swelling Respiratory: (+) cough, (-) shortness of breath, (-) pleuritic chest pain Psychiatric: (+) anxiety Objective There were no vitals taken for this visit. General: No acute distress. Labs: - COVID test: Negative - COVID test: Negative Assessment AND Plan 1. Viral URI with cough (J06.9) - Symptoms consistent with viral URI; no evidence of bacterial infection. - Continue Claritin and Flonase. - Start benzonatate 100 mg PO every 8 hours PRN for cough. - Encourage continued use of humidifier, increased fluid intake, and head elevation at night. - Advised to continue zinc, vitamin D, and vitamin C to support immune function. - Educated on expected duration of viral symptoms (10-14 days) and that cough may persist up to a month. - Advised to monitor for new or worsening symptoms (fever, pleuritic pain, sinus pain/pressure with fever) and seek in-person evaluation if these develop. - Advised to defer COVID vaccination until fully recovered. Recording using ambient [employer] software for draft documentation of the visit was discussed with the patient/authorized dental detail representative; all questions welcomed and answered. Patient/authorized dental detail representative agreed to proceed IF YOUR SYMPTOMS PERSIST OR WORSENING IN THE NEXT 7 DAYS THEN PLEASE FOLLOW UP WITH YOUR PCP - Red flags discussed for need for in person care - All questions answered Differential Diagnoses - Viral URI is more likely for the following reason(s): suggested by HANDP Disposition The patient was discharged. OTC Medications were advised: CODING:[facility]07-25-2025 History of Present illness Narrative * Maggie Colon APRN.[facility] - 06/25/2025 9:48 AM EDT Telemedicine Visit - Distance Health Virtual Visit Note Patient seen on [employer] Video Visit platform. Location of patient: [place], [place], MD I have communicated my name and active licensure. The patient's identity and physical location wereverified at the time of this visit. Either the patient or their legal dental detail representative has been informed of the risks and benefits of -- and alternatives to -- treatment through a remote evaluation andconsents to proceed with the evaluation remotely. Subjective The patient is a 44-year-old female with a history of HTN, presenting for evaluation of cough, headache, and fatigue. Cough: - Onset 8-9 days ago, progressively worsening. - Describes cough as awful last night. - Tried Mucinex yesterday, which seemed to exacerbate the cough. - Took Robitussin cough gels today. - Denies dyspnea or pleuritic pain. - Denies fever; O2 saturation 95-97%. - Recent negative COVID-19 test. Headache: - Onset 8-9 days ago, intermittent. - Associated with mild pressure, relieved by Motrin. - Denies facial tenderness or swelling. Fatigue: - Feels run down but not super sick. - Denies neck tenderness or swelling. - Denies sore throat. COVID-19: - Severe COVID-19 infection in 2020, requiring hospitalization. - Second COVID-19 infection in July of last year. - Overdue for COVID-19 vaccination; last dose was before the second infection. - Expresses anxiety about getting COVID-19 again, especially during this time of year (June or July). Allergies: - Taking Claritin daily. - Started using Flonase and saline spray 2 days ago. Hypertension: - Managed with medication. - Avoids medications containing D due to HTN. Supplements: - Taking zinc. - Has vitamin D and B12 but has not been taking them regularly. Family: - Son has similar symptoms, including headache, cough, and fever. - Son's COVID-19 test was negative. 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 Constitutional: (+) fatigue, (-) fever Head: (+) headache, (-) facial pain Ears/Nose/Mouth/Throat: (+) throat clearing sensation, (-) nasal congestion, (-) sore throat, (-) sinus pressure Neck: (-) neck tenderness, (-) neck swelling Respiratory: (+) cough, (-) shortness of breath, (-) pleuritic chest pain Psychiatric: (+) anxiety Objective There were no vitals taken for this visit. General: No acute distress. Labs: - COVID test: Negative - COVID test: Negative Assessment & Plan 1. Viral URI with cough (J06.9) - Symptoms consistent with viral URI; no evidence of bacterial infection. - Continue Claritin and Flonase. - Start benzonatate 100 mg PO every 8 hours PRN for cough. - Encourage continued use of humidifier, increased fluid intake, and head elevation at night. - Advised to continue zinc, vitamin D, and vitamin C to support immune function. - Educated on expected duration of viral symptoms (10-14 days) and that cough may persist up to a month. - Advised to monitor for new or worsening symptoms (fever, pleuritic pain, sinus pain/pressure withfever) and seek in-person evaluation if these develop. - Advised to defer COVID vaccination until fully recovered. Recording using [email or web address] software for draft documentation of the visit was discussed with the patient/authorized dental detail representative; all questions welcomed and answered. Patient/authorized dental detail representative agreed to proceed IF YOUR SYMPTOMS PERSIST OR WORSENING IN THE NEXT 7 DAYS THEN PLEASE FOLLOW UP WITH YOUR PCP - Red flags discussed for need for in person care - All questions answered Differential Diagnoses - Viral URI is more likely for the following reason(s): suggested by H&P Disposition The patient was discharged. OTC Medications were advised: CODING: documented in this encounterM[facility]letown [facility]02-28-2025 History of Present illness Narrative* JACOB Gomez - 01/29/2025 9:40 AM EST [address] [place] [id number] Patient: Olga Xiao Date of : 1980 Encounter Date: 01/29/2025 History of Present Illness: The patient is a 44 y.o. female, an established patient, and is here for Chief Complaint Patient presents with Hypertension . HPI At the beginning of January, patient started having an abnormal feeling that starts in her back and radiates to her head like she may pass out . She describes it as feeling lightheaded at times, usually when she is sitting up or standing. We decreased her Toprol to 25 mg on January 07 but she has been taking her blood pressures at home and they were running above goal of less than 130/80 so she increased her Toprol back to 50 mg. Patient states she has less incidences of feeling lightheaded with the increase in her blood pressures are now better controlled around 125 over 70s to 80s. She would like to continue the 50 mg dose for now. Patient also complaining of bilateral hands and feet are itching almost every night when she lays down for the night. She sometimes develops hives on her hands and scratches them open at times. She has noticed this for the last several weeks. She has tried some jtgx-tmq-acrolil hydrocortisone cream. She is under a lot of stress currently with moving and her son's medical problems. She has noticedworsening of the symptoms with higher stress levels. Problem List Items Addressed This Visit Cardiovascular and Mediastinum Essential hypertension - Primary Relevant Medications metoprolol succinate XL (TOPROL XL) 50 mg 24 hr tablet Other Visit Diagnoses Acute urticaria Past Medical, Family, and Social History Update: The following portions of the patient's history were reviewed and updated as appropriate: allergies, current medications, past family history, past medical history, past social history, past surgicalhistory and problem list. Past Medical History: Diagnosis Date Anxiety Arrhythmia Fluttering Heart BMI 50.0-59.9, adult ([facility]) Bone mass Right Femur Brain lesion Chronic alcoholic gastritis without hemorrhage Depression Difficulty swallowing Edema of left lower extremity Fluttering heart Gastric diverticulum GERD (gastroesophageal reflux disease) History of esophageal dilatation Hypertension Hypertriglyceridemia Lumbar radiculopathy Metabolic syndrome Neuralgia of left lower extremity Paresthesia of skin Peptic ulceration Primary osteoarthritis of right knee Shortness of breath Tachycardia Tonsillar hypertrophy Traumatic arthritis of left knee Past Surgical History: Procedure Laterality Date ADENOIDECTOMY CHOLECYSTECTOMY ESOPHAGOGASTRODUODENOSCOPY HYSTERECTOMY 2013 LUMBAR PUNCTURE OOPHORECTOMY 2021 Right ovary PARTIAL HYSTERECTOMY Current Outpatient Medications Medication Sig Dispense Refill hydroCHLOROthiazide (HYDRODIURIL) 12.5 mg tablet take 1 tablet by mouth once daily. 30 tablet 2 loratadine (CLARITIN) 10 mg tablet Take 1 tablet (10 mg total) by mouth in the morning. hydrocortisone (HYTONE) 2.5 % cream Apply 1 Application topically in the morning and 1 Application before bedtime. 30 g 0 ibuprofen (ADVIL,MOTRIN) 200 mg tablet Take 1 tablet (200 mg total) by mouth every 6 (six) hours asneeded for pain. metoprolol succinate XL (TOPROL XL) 50 mg 24 hr tablet Take 1 tablet (50 mg total) by mouth in the morning. 90 tablet 1 jlzqdoda-ybyiyoenmw-qlucdipep (Neosporin) ophthalmic ointment Has not picked it up prednisoLONE acetate (PRED FORTE) 1 % ophthalmic suspension semaglutide, weight loss, (WEGOVY) 0.25 mg/0.5 mL pen injector Inject 0.5 mL (0.25 mg total) under the skin every 7 days. 2 mL 0 valACYclovir (VALTREX) 1000 mg tablet Has not taken yet No current facility-administered medications for this visit. (All medications reviewed and updated by provider since last office visit or hospitalization) Allergies: Fish containing products, Penicillins, Vancomycin, Cefdinir, Biaxin [clarithromycin], Dilaudid [hydromorphone], E-mycin [erythromycin], Erythromycin base, Hydrocodone, and Ketorolac Tobacco History: Social History Tobacco Use Smoking Status Never Smokeless Tobacco Never (If patient a smoker, smoking cessation counseling offered) Social History: Social History Substance and Sexual Activity Alcohol Use Not Currently Review of Systems: Review of Systems Constitutional: Negative for activity change, appetite change and unexpected weight change. Respiratory: Negative. Cardiovascular: Negative. Gastrointestinal: Negative. Skin: Positive for rash. Neurological: Positive for light-headedness. Psychiatric/Behavioral: The patient is nervous/anxious. Physical Exam: Pulse 79 Temp 37 C (98.6 F) (Oral) Resp 18 Ht 165.1 cm (5' 5 ) Wt (!) 182.4 kg (402 lb 3.2 oz) SpO2 98% BMI 66.93 kg/m Physical Exam Vitals reviewed. Constitutional: Appearance: She is obese. HENT: Head: Normocephalic and atraumatic. Cardiovascular: Rate and Rhythm: Normal rate and regular rhythm. Heart sounds: Normal heart sounds. Pulmonary: Effort: Pulmonary effort is normal. Breath sounds: Normal breath sounds. Abdominal: General: Bowel sounds are normal. Palpations: Abdomen is soft. Musculoskeletal: Right lower leg: No edema. Left lower leg: No edema. Skin: General: Skin is warm. Capillary Refill: Capillary refill takes less than 2 seconds. Findings: Rash present. Rash is papular. Comments: Raised papular red to pink rash scattered on dorsal surface left hand Neurological: General: No focal deficit present. Mental Status: She is alert and oriented to person, place, and time. Psychiatric: Mood and Affect: Mood normal. Behavior: Behavior normal. Assessment and Plan: Olga was seen today for hypertension. Diagnoses and all orders for this visit: Essential hypertension Acute urticaria Other orders - metoprolol succinate XL (TOPROL XL) 50 mg 24 hr tablet; Take 1 tablet (50 mg total) by mouth in the morning. - hydrocortisone (HYTONE) 2.5 % cream; Apply 1 Application topically in the morning and 1 Application before bedtime. Follow-up: Blood pressure is well controlled at home, continue 50 mg of metoprolol succinate daily. If she continues to have lightheaded feeling when sitting up or with position changes, consider TIMA inhibitor.Patient does not want to change her medications at this point until after she deals with her son's medical problems 1st. She will return to the office in 6-8 weeks to discuss switching medications. Unknown cause of hives to hands and feet. She was encouraged to use hydrocortisone as above when she has the rash and moisturize her hands and feet. It does seem to be worse when she is under lot of stress or anxiety so she may benefit from hydroxyzine if above does not help. Re-check in 6-8 wks w/ BP. JACOB GOMEZ APRN-CNP 01/29/25 [id number] documented [facility] History of Present illness Narrative* JACOB Gomez - 01/07/2025 11:21 AM EST Pt was called to discuss chest x-ray results for her son and started telling me about her symptoms of light-headedness or a abnormal feeling that starts in her back and radiates to her head and she feels she may pass out. She is complaining of this at her last appointment with Dr. Munguia. I will decrease her Toprol back to 25 mg daily and she has a follow-up appointment on January 29 to recheck her blood pressure and symptoms. She may be having some orthostatic changes due to the higher dose of the metoprolol. JACOB Gomez 01/07/25 [id number] documented in this encounterKind[facility] [place]01-[facility]25 History of Present illness Narrative* Marco Antonio Coker Ezra, - 12/31/2024 11:45 AM EST Subjective Patient ID: Olga Xiao is a 44 y.o. female. Olga presents today for a new problem. She had to go to the emergency room recently and her blood pressure was very high. She followed up here and her metoprolol was increased to 50 mg daily. She feels pressure in head and it comes up back and sides of head. It lasts a few minutes and then goes away on its own. Her blood pressure is running high. She is worried she might have a stroke. There is anurse in the family who told her that she may have orthostatic hypotension. She does not feel dizzyor lightheaded like she might pass out. She just had shingles and is still taking acyclovir for them. She has been dieting and exercising for years. She walks about 1.5 miles 4 days a week. She has gained 70 lb in the recent past. She would like some help with weight loss. She does not want to take phentermine because of the risk of high blood pressure and palpitations. She has a history of tachycardia. The following portions of the patient's history were reviewed and updated as appropriate: allergies, current medications, past family history, past medical history, past social history, past surgicalhistory, problem list, and medication reconciliation was completed including current medication andpost discharge medication. Review of Systems Objective Physical Exam Cardiovascular: Rate and Rhythm: Normal rate and regular rhythm. Pulmonary: Effort: Pulmonary effort is normal. No respiratory distress. Breath sounds: Normal breath sounds. No wheezing, rhonchi or rales. Musculoskeletal: Cervical back: Neck supple. Neurological: General: No focal deficit present. Mental Status: She is alert and oriented to person, place, and time. Assessment/Plan Olga was seen today for pressure in head when standing . Diagnoses and all orders for this visit: Essential hypertension Her blood pressure was a little high on rechecked. Her symptoms do not sound like a stroke at all. They seem to be related to movement. May even be musculoskeletal in nature versus orthostatic hypotension. If it is orthostatic hypotension I would not increase her blood pressure medications. Monitorfor new symptoms. Can be a side effect of acyclovir. Class 3 severe obesity due to excess calories without serious comorbidity with body mass index (BMI) of 60.0 to 69.9 in adult ([facility]) - semaglutide, weight loss, (WEGOVY) 0.25 mg/0.5 mL pen injector; Inject 0.5 mL (0.25 mg total) under the skin every 7 days. She is obese. She has been dieting and exercising for over 6 months and has not been able to lose weight. In fact she has gained weight. She is not a candidate for phentermine. We discussed other weight loss medications. She is willing to try Wegovy 0.25 mg once a week. Continue with diet, exerciseand weight loss. Reduce portion sizes. Healthy choice is a foods discussed. Encounter for screening mammogram for malignant neoplasm of breast - Mammography screening bilateral with CAD; Future She is due for a mammogram. She would pursue further evaluation and treatment. Herpes zoster without complication Finish medications. documented in this [facility]01-[facility]25 History of Present illness Narrative* Marly Mckeon APRN-ADALBERTO - 12/24/2024 3:00 PM EST Images from the original note were not included. [address] [facility] [id number] Patient: Olga Xiao Date of : 1980 Encounter Date: 12/24/2024 History of Present Illness: The patient is a 44 y.o. female, an established patient, and is here for Chief Complaint Patient presents with shingles . HPI December 14 patient's left eye started itching and each day became increasingly itchy, red and swollen with some clear to mucoid discharge. She went to the urgent care and was started on eyedrops and amoxicillin. Patient is started having bumps that look like pimples on December 20. On December 21 patient went to ER to have her eye looked at because it wasn't improving much and she had a headache. The ER diagnosed her with hordeolum and recommended she f/u with her eye Dr. She f/u in this office later on the and the diagnosis from the ER was supported and her B-ana laura was increased due to some high BP readings. She saw her eye doctor the next day and was prescribed neomycin ointment and prednisone drops. She called this office back and told another provider that she started having 'zaps' around the pimples to her face around eye and was prescribed anti-viral PO medication. She has been taking this about 48 hrs now without spread of pimples/blisters to face but minimal improvement to feeling of 'zapping' to left forehead/eye around rash. She presents with her pre-teen son who is dealing with a respiratory illness that has been going around the house. She is under immense stress from moving and other emotional factors in her life right now. Problem List Items Addressed This Visit None Visit Diagnoses Herpes zoster conjunctivitis - Primary Relevant Medications yfygufzk-kpqxpnzadn-bkzmrsjwg (Neosporin) ophthalmic ointment valACYclovir (VALTREX) 1000 mg tablet Past Medical, Family, and Social History Update: The following portions of the patient's history were reviewed and updated as appropriate: allergies, current medications, past family history, past medical history, past social history, past surgicalhistory and problem list. Past Medical History: Diagnosis Date Anxiety Arrhythmia Fluttering Heart BMI 50.0-59.9, adult ([facility]) Bone mass Right Femur Brain lesion Chronic alcoholic gastritis without hemorrhage Depression Difficulty swallowing Edema of left lower extremity Fluttering heart Gastric diverticulum GERD (gastroesophageal reflux disease) History of esophageal dilatation Hypertension Hypertriglyceridemia Lumbar radiculopathy Metabolic syndrome Neuralgia of left lower extremity Paresthesia of skin Peptic ulceration Primary osteoarthritis of right knee Shortness of breath Tachycardia Tonsillar hypertrophy Traumatic arthritis of left knee Past Surgical History: Procedure Laterality Date ADENOIDECTOMY CHOLECYSTECTOMY ESOPHAGOGASTRODUODENOSCOPY LUMBAR PUNCTURE PARTIAL HYSTERECTOMY Current Outpatient Medications Medication Sig Dispense Refill acetaminophen (TYLENOL) 325 mg tablet Take 2 tablets (650 mg total) by mouth every 6 (six) hours asneeded for pain. CEPHalexin (KEFLEX) 500 mg capsule hydroCHLOROthiazide (HYDRODIURIL) 12.5 mg tablet take 1 tablet by mouth once daily. 30 tablet 2 ibuprofen (ADVIL,MOTRIN) 200 mg tablet Take 1 tablet (200 mg total) by mouth every 6 (six) hours asneeded for pain. loratadine (CLARITIN) 10 mg tablet Take 1 tablet (10 mg total) by mouth in the morning. metoprolol succinate XL (TOPROL XL) 50 mg 24 hr tablet Take 1 tablet (50 mg total) by mouth in the morning. 90 tablet 1 jbvbbups-fyeppuabfg-pvxcejgvv (Neosporin) ophthalmic ointment Has not picked it up ofloxacin (FLOXIN) 0.3 % otic solution prednisoLONE acetate (PRED FORTE) 1 % ophthalmic suspension valACYclovir (VALTREX) 1000 mg tablet Has not taken yet predniSONE (DELTASONE) 20 mg tablet Take 1 tablet (20 mg total) by mouth in the morning and 1 tablet (20 mg total) before bedtime. Do all this for 5 days. 10 tablet 0 No current facility-administered medications for this visit. (All medications reviewed and updated by provider since last office visit or hospitalization) Allergies: Fish containing products, Penicillins, Vancomycin, Cefdinir, Biaxin [clarithromycin], Dilaudid [hydromorphone], E-mycin [erythromycin], Erythromycin base, Hydrocodone, and Ketorolac Tobacco History: Social History Tobacco Use Smoking Status Never Smokeless Tobacco Never (If patient a smoker, smoking cessation counseling offered) Social History: Social History Substance and Sexual Activity Alcohol Use Not Currently Review of Systems: Review of Systems Constitutional: Negative for chills and fever. HENT: Negative. Eyes: Positive for pain and redness. Negative for visual disturbance. Respiratory: Negative for chest tightness and shortness of breath. Cardiovascular: Negative for chest pain and palpitations. Gastrointestinal: Negative. Endocrine: Negative. Genitourinary: Negative for menstrual problem and pelvic pain. Musculoskeletal: Negative. Skin: Positive for rash. Allergic/Immunologic: Negative. Neurological: Positive for headaches. Negative for syncope and facial asymmetry. 'burning/zapping to rash on face' Hematological: Does not bruise/bleed easily. Psychiatric/Behavioral: Negative. Physical Exam: BP 130/70 (BP Site: Left Arm, BP Postition: Sitting, BP CUFF SIZE: L (13-17 inches)) Pulse 93 Temp 36.7 C (98.1 F) (Oral) Resp 18 Ht 165.1 cm (5' 5 ) Wt (!) 180.9 kg (398 lb 12.8 oz) [id number]% BMI 66.36 kg/m Physical Exam Vitals reviewed. Constitutional: Appearance: Normal appearance. HENT: Head: Normocephalic and atraumatic. Eyes: General: Left eye: Discharge present. Conjunctiva/sclera: Left eye: Left conjunctiva is injected. Skin: Findings: Rash present. Rash is vesicular. Comments: Blistering, vesicular rash to V1 dermatome in face left side as marked above with swelling and redness to eyelid Neurological: Mental Status: She is alert. Assessment and Plan: Olga was seen today for shingles. Diagnoses and all orders for this visit: Herpes zoster conjunctivitis Other orders - predniSONE (DELTASONE) 20 mg tablet; Take 1 tablet (20 mg total) by mouth in the morning and 1 tablet (20 mg total) before bedtime. Do all this for 5 days. Follow-up: Reinforced importance of taking antiviral medication TID X 10 days and using medications as given by her eye doctor. We will add oral prednisone as her Herpes zoster rash is effecting V1 around her eye. She should stay in close communication with her eye doctor about her rash and f/u if needed if she has any vision changes. She should continue cool compresses to face. If she has symptoms after rash has resolved, she should contact provider. When rash has completely resolved she may have shingrix vaccine. Pt has f/u in Jan. JACOB GOMEZ APRN-CNP 12/26/24 1413 documented in this encounterKind[facility]01-[facility]25 History of Present illness Narrative* JACOB Robertson - 12/21/2024 10:20 AM EST Images from the original note were not included. [facility] [address] [facility] [id number] SUBJECTIVE: Patient ID: Olga Xiao is a 44 y.o. female. Chief Complaint Patient presents with Hypertension 158/118 Headache swallen lymp nodes Patient went to the ER during the night for symptoms. States she was diagnosed with left stye in her inner eye. She has been experiencing mild headaches recently. She was informed by ER headache may be contributed by stye in her eye due to the location. Blood pressure is noted to be elevated today,150/80.She is worried about possible enlarge lymph nodes. She has history of chronic enlarged tonsils. States she had her adenoids removed several years ago but ENT would not take her tonsils out. The following portions of the patient's history were reviewed and updated as appropriate: allergies, current medications, past family history, past medical history, past social history, past surgicalhistory and problem list. Past Surgical History: Procedure Laterality Date ADENOIDECTOMY CHOLECYSTECTOMY ESOPHAGOGASTRODUODENOSCOPY LUMBAR PUNCTURE PARTIAL HYSTERECTOMY Past Medical History: Diagnosis Date Anxiety Arrhythmia Fluttering Heart BMI 50.0-59.9, adult ([facility]) Bone mass Right Femur Brain lesion Chronic alcoholic gastritis without hemorrhage Depression Difficulty swallowing Edema of left lower extremity Fluttering heart Gastric diverticulum GERD (gastroesophageal reflux disease) History of esophageal dilatation Hypertension Hypertriglyceridemia Lumbar radiculopathy Metabolic syndrome Neuralgia of left lower extremity Paresthesia of skin Peptic ulceration Primary osteoarthritis of right knee Shortness of breath Tachycardia Tonsillar hypertrophy Traumatic arthritis of left knee Immunization History Administered Date(s) Administered COVID-19, mRNA, LNP-S, PF, 100mcg/0.5mL Dose 09/04/2021, 10/09/2021, 04/13/2022 Covid-19, Mrna, Lnp-s, Bivalent, Pf, 50mcg/0.5ml or 25mcg/0.25ml 10/20/2022 Covid-19,mrna, Lnp-s, Pf, 50mcg/0.5ml 12+ 09/12/2023 Influenza, Injectable, Mdck, Preservative Free, Quad 11/13/2022 Influenza, Injectable, quadrivalent (PF) 09/12/2023 Rabies - Im Diploid Cell Culture 07/02/2020 SARS-COV-2 (COVID-19) Vaccine, Unspecified 10/20/2022 Tdap 03/18/2018 REVIEW OF SYSTEMS: Review of Systems Constitutional: Negative for chills and fever. HENT: Negative. Eyes: Positive for pain. Negative for visual disturbance. Respiratory: Negative for chest tightness and shortness of breath. Cardiovascular: Negative for chest pain and palpitations. Gastrointestinal: Negative. Endocrine: Negative. Genitourinary: Negative for menstrual problem and pelvic pain. Musculoskeletal: Negative. Skin: Negative. Allergic/Immunologic: Negative. Neurological: Positive for headaches. Negative for syncope and facial asymmetry. Hematological: Does not bruise/bleed easily. Psychiatric/Behavioral: Negative. PHYSICAL EXAMINATION: Vitals: 12/21/24 1023 BP: 150/80 BP Site: Left Arm BP Postition: Sitting Pulse: 80 Resp: 18 Temp: 36.7 C (98 F) TempSrc: Oral SpO2: 98% Weight: (!) 182.8 kg (403 lb) Height: 165.1 cm (5' 5 ) Patient noted to have elevated BMI and the following intervention(s) were applied: encouragement toexercise. Physical Exam Vitals and nursing note reviewed. Constitutional: General: She is not in acute distress. Appearance: She is well-developed. She is not diaphoretic. HENT: Head: Normocephalic and atraumatic. Right Ear: Tympanic membrane and external ear normal. Left Ear: Tympanic membrane and external ear normal. Nose: Nose normal. Mouth/Throat: Mouth: Mucous membranes are moist. Pharynx: Posterior oropharyngeal erythema present. No oropharyngeal exudate. Tonsils: 3+ on the right. 3+ on the left. Eyes: General: Right eye: No discharge. Left eye: No discharge. Conjunctiva/sclera: Conjunctivae normal. Pupils: Pupils are equal, round, and reactive to light. Comments: Left eye stye Neck: Thyroid: No thyromegaly. Vascular: No JVD. Cardiovascular: Rate and Rhythm: Regular rhythm. Heart sounds: Normal heart sounds. No murmur heard. No friction rub. No gallop. Pulmonary: Effort: Pulmonary effort is normal. Breath sounds: Normal breath sounds. Abdominal: General: Bowel sounds are normal. There is no distension. Palpations: Abdomen is soft. There is no mass. Tenderness: There is no abdominal tenderness. Musculoskeletal: General: Normal range of motion. Cervical back: Normal range of motion and neck supple. Lymphadenopathy: Cervical: No cervical adenopathy. Skin: General: Skin is warm and dry. Capillary Refill: Capillary refill takes less than 2 seconds. Neurological: Mental Status: She is alert and oriented to person, place, and time. Deep Tendon Reflexes: Reflexes are normal and symmetric. Psychiatric: Mood and Affect: Mood normal. Behavior: Behavior normal. Thought Content: Thought content normal. Judgment: Judgment normal. ASSESSMENT/PLAN: Olga was seen today for hypertension, headache and swallen lymp nodes. Diagnoses and all orders for this visit: Essential hypertension - metoprolol succinate XL (TOPROL XL) 50 mg 24 hr tablet; Take 1 tablet (50 mg total) by mouth in the morning. Hordeolum externum of left eye, unspecified eyelid Blood pressure noted to be elevated today, 150/80. Increase metoprolol succinate XL to 50 mg oral daily. Continue cephalexin and ofloxacin eye drops as prescribed by ER for left eye. Warm moist compress to left eye PRN Body mass index is 67.06 kg/m . Patient noted to have elevated BMI and the following intervention(s) were applied: Discussed current weight today. Consider healthy food choices, portion control. Avoid sugary beverages and high concentrated sweets. Routine exercise regimen encouraged. ALL QUESTIONS ANSWERED Total time spent was 25 minutes: Preparing to see the patient (e.g., review of tests) Obtaining and/or reviewing separately obtained history Performing a medically appropriate examination and/or evaluation Counseling and educating the patient/family/caregiver Ordering medications, tests, or procedures Follow-up: HTN follow up with JACOB Lujan 12/21/24 1237 documented in this encounter[facility]10[facility] History of Present illness Narrative* Marco Antonio Munguia, - 09/28/2024 4:00 PM EDT Subjective Patient ID: Olga Xiao is a 43 y.o. female. Olga presents today for a sore throat. Started about 5 days ago. She went to the urgent care and was started on antibiotic. Her COVID test was negative but after examination there was concern for strep throat clinically because she had enlarged, red tonsils and so she was started on azithromycin because she has a penicillin allergy. Her daughter is now sick with cough and congestion. Her COVID was negative as well. She is using Tylenol and ibuprofen for pain relief which helps but then when it is wears off it returns. She has been busy taking care of her brother's house and her mom has dementia so she has been stressed out with that. Follow-up Associated symptoms include a fever. Pertinent negatives include no congestion. The following portions of the patient's history were reviewed and updated as appropriate: allergies, current medications, past family history, past medical history, past social history, past surgicalhistory, problem list, and medication reconciliation was completed including current medication andpost discharge medication. Review of Systems Constitutional: Positive for fever. HENT: Negative. Negative for congestion, drooling, ear pain, facial swelling and mouth sores. Eyes: Negative. Respiratory: Negative. Cardiovascular: Negative. Genitourinary: Negative. Neurological: Negative. Hematological: Negative. Objective Physical Exam Vitals reviewed. HENT: Head: Normocephalic. Right Ear: Tympanic membrane, ear canal and external ear normal. Left Ear: Tympanic membrane, ear canal and external ear normal. Nose: No congestion. Mouth/Throat: Mouth: Mucous membranes are dry. Pharynx: Oropharynx is clear. No oropharyngeal exudate or posterior oropharyngeal erythema. Eyes: Extraocular Movements: Extraocular movements intact. Conjunctiva/sclera: Conjunctivae normal. Cardiovascular: Rate and Rhythm: Normal rate and regular rhythm. Heart sounds: Normal heart sounds. No murmur heard. Pulmonary: Effort: Pulmonary effort is normal. No respiratory distress. Breath sounds: Normal breath sounds. No wheezing, rhonchi or rales. Musculoskeletal: Cervical back: Neck supple. Lymphadenopathy: Cervical: Cervical adenopathy (mild submandibular) present. Neurological: General: No focal deficit present. Mental Status: She is alert and oriented to person, place, and time. Assessment/Plan Olga was seen today for follow-up. Diagnoses and all orders for this visit: Pharyngitis, unspecified etiology - POCT rapid strep A Her rapid strep was negative. I would recommend that she finish out her antibiotic. Clinically doesnot need another antibiotic. Tonsils are enlarged and she had that diagnosis before. There was no exudate. She did have lymphadenopathy but it was mild. Defers rx throat analgesics but can use OTC Tonsillar hypertrophy Discussed tonsillar hypertrophy. May be contributing to sleep apnea. She denies further evaluation. documented [facility] Evaluation note* Diagnosis Onset Date Resolution Status Admit Date Acute pharyngitis noneactiveOctober 2023 3:34pm [facility] Work Phone: [phone]) 299-820008-26-2024 History of Present illness Narrative* Marco Antonio Munguia, DO - 07/27/2024 3:45 PM EDT Subjective Patient ID: Olga Xiao is a 43 y.o. female. Olga presents today for chief complaint of cough. She tested positive for COVID almost 2 weeks ago.She did go to the emergency room because she was concerned that she had pneumonia but her chest x-ray was okay. She did not have much of a cough initially but then began having a lot of coughing overthe last 6 days. Occasional SOB with coughing. Has fits of coughing and get short of breath then. Nonproductive cough. She does not have a fever. She has a pulse ox at home and it is okay. She has had some good days since she has been diagnosed where she has a lot of energy and then other days where she has been really tired. That happened over the weekend. She is scared because she nearly from COVID in the past. Cough The following portions of the patient's history were reviewed and updated as appropriate: allergies, current medications, past family history, past medical history, past social history, past surgicalhistory, problem list, and medication reconciliation was completed including current medication andpost discharge medication. Review of Systems Constitutional: Positive for fatigue. Respiratory: Positive for cough. Objective Physical Exam Constitutional: Appearance: She is morbidly obese. HENT: Head: Normocephalic. Cardiovascular: Rate and Rhythm: Normal rate and regular rhythm. Pulses: Normal pulses. Heart sounds: Normal heart sounds. No murmur heard. Pulmonary: Effort: Pulmonary effort is normal. No respiratory distress. Breath sounds: Normal breath sounds. No wheezing, rhonchi or rales. Musculoskeletal: Cervical back: Neck supple. Right lower leg: No edema. Left lower leg: No edema. Neurological: General: No focal deficit present. Mental Status: She is alert and oriented to person, place, and time. Psychiatric: Attention and Perception: Attention normal. Mood and Affect: Mood and affect normal. Speech: Speech normal. Behavior: Behavior normal. Behavior is cooperative. Thought Content: Thought content normal. Cognition and Memory: Cognition normal. Judgment: Judgment normal. Assessment/Plan Olga was seen today for cough. Diagnoses and all orders for this visit: COVID-19 She has had COVID for about 2 weeks now. She had a chest x-ray last week which was negative and today the exam was clear. She is having more coughing of late. She does have fits of coughing with shortness a breath. I wonder if she is maybe having some bronchospasm with this. I did give her a sampleof Trelegy 100 to use 1 puff daily for 14 days. She is using Coricidin [id number]-wgmglii for cough which is helping. She can stay on this. Monitor pulse ox. Call if she gets feverish or any new or worsening symptoms. It should resolve on its own. documented in this encounter[facility]08[facility] History of Present illness Narrative* Marco Antonio Munguia DO - 07/14/2024 4:45 PM EDT Subjective Video Visit via Real-time Synchronous Audiovisual [facility] [address] [facility] [address] Patient Location: Patient's home Video Visit Consent Statement: I discussed risks, benefits, and alternatives of a real-time synchronous audiovisual consultation with the patient (and any accompanying persons) including the risks that the patient's personal health details and medical records will be discussed over real-time, synchronous, interactive video/audio/telecommunication technology, the visit will not be recorded withoutthe express consent of both the provider and the patient, and that there are some limitations compared to [id number] evaluations. The patient consented to the presence of additional virtual and/or in-person participants. We elected to proceed. Patient ID: Olga Xiao is a 43 y.o. female. Olga agrees to a telehealth visit after she tested positive for COVID. She started feeling sick yesterday. She just did not feel right early in the day and then she had a sore throat later at night. She was swimming in a pool and thought maybe was just from her swimming. She woke up shivering last night and she decided take a COVID test and it was positive. She was feeling feverish so she took her temperature and it was 101.4 and went up to 101.9. She woke up this morning she still did not feelgood and so she wanted to confirm the COVID diagnosis so she took the test again and it was also positive. Her appetite is down but she is drinking fluids okay. She slept prone last night. She was [facility] for 10 days and nearly back in 2020. No one else in the her family is sick. Shewent to a bowling libertarian on Saturday with her daughter and her went to a football game. So far no one else is sick. She is interested in Paxlovid and steroids. Her cough isn't too bad. She is using Motrin and that gives her significant relief. The following portions of the patient's history were reviewed and updated as appropriate: allergies, current medications, past family history, past medical history, past social history, past surgicalhistory, problem list, and medication reconciliation was completed including current medication andpost discharge medication. Review of Systems Objective Physical Exam Vitals reviewed. Exam conducted with a broker associate present (Fabricio Browning MS III). Constitutional: General: She is not in acute distress. Appearance: She is morbidly obese. She is not ill-appearing. Comments: She is speaking free and easily in full sentences. Pulmonary: Effort: Pulmonary effort is normal. No respiratory distress. Breath sounds: No stridor. Neurological: Mental Status: She is alert. Psychiatric: Attention and Perception: Attention normal. Mood and Affect: Mood and affect normal. Speech: Speech normal. Behavior: Behavior normal. Behavior is cooperative. Thought Content: Thought content normal. Cognition and Memory: Cognition normal. Judgment: Judgment normal. Assessment/Plan Diagnoses and all orders for this visit: COVID-19 Patient has tested positive for COVID-19 in has clinical symptoms. She has risk factors for complication because of her obesity. She qualifies for Paxlovid therapy. Risks and benefits of medication discussed. She would like to take it. She would also like a prednisone prescription. She was instructed to go to the emergency room if she became short of breath or had chest pain. Use [id number] for symptoms such as Tylenol or Robitussin DM. Can use Motrin but Tylenol is preferred. Other orders - nirmatrelvir-ritonavir (PAXLOVID) tablets; Take 3 tablets by mouth in the morning and 3 tablets before bedtime. Do all this for 5 days. For doses of 3 tablets - Take two 150 mg nirmatrelvir (pink) tablets at the same time as one 100 mg ritonavir (white) tablet per dose.. documented in this [facility]08-[facility]24 Miscellaneous Notes* Telephone Encounter - Hermelinda Walden - 07/14/2024 8:35 AM EDT Patient called and she tested positive for covid, she has a fever 100.8 as of this morning, cough, body aches, she is worried since the last time she had it she almost . Would you be able to sendin paxlovid for her or would we be able to squeezed her in for a video today * Telephone Encounter - Marco Antonio Munguia DO - 07/14/2024 8:35 AM EDT Can do a video visit at 4:45 p.m. * Telephone Encounter - Hermelinda Walden - 07/14/2024 8:35 AM EDT Scheduled documented in [facility]08-[facility] Telephone encounter Note* Telephone Encounter - Hermelinda Walden - 07/14/2024 8:35 AM EDT Patient called and she tested positive for covid, she has a fever 100.8 as of this morning, cough, body aches, she is worried since the last time she had it she almost . Would you be able to sendin raine for her or would we be able to squeezed her in for a video today [facility] Telephone encounter Note* Telephone Encounter - Marco Antonio Munguia DO - 07/14/2024 8:35 AM EDT Can do a video visit at 4:45 p.m. [facility] Telephone encounter Note* Telephone Encounter - Hermelinda Walden - 07/14/2024 8:35 AM EDT Scheduled [facility] History of Present illness Narrative* Ximena Thompson, JACKIE-CHASSIS DRIVER - 04/16/2024 11:00 AM EDT Subjective Patient ID: Olga Xiao is a 43 y.o. female. Woke up Saturday at 2:30 am with a spinning sensation She was able to diminish this by tilting her head to the left She felt a lot of fullness and pressure in the right side of her head She went to the ER and was given meclizine, 60 mg of oral steroid and ativan By the next day she felt much better But now gradually despite taking the meclizine the symptoms are starting to recur and she is feeling of balance, a lot of pressure in the right ear and the right side of the face She has had poor sleep, no fever Pulse ox today was 97% and blood pressure 130/82 She had a few migraines in the days prior to this - this is typical in the spring weather She has not otherwise been ill and she has not had any recent trauma The ER did state she had fluid on her right tm and diagnosed her with vertigo The following portions of the patient's history were reviewed and updated as appropriate: allergies, current medications, past family history, past medical history, past social history, past surgicalhistory, problem list, and medication reconciliation was completed including current medication andpost discharge medication. Review of Systems Constitutional: Positive for activity change. Negative for appetite change, fatigue and fever. HENT: Positive for congestion, ear pain and sinus pressure. Eyes: Negative. Respiratory: Negative. Cardiovascular: Negative. Gastrointestinal: Negative. Endocrine: Negative. Genitourinary: Negative. Musculoskeletal: Negative. Neurological: Positive for dizziness, light-headedness and headaches. Hematological: Negative. Psychiatric/Behavioral: Negative. Objective Physical Exam Vitals and nursing note reviewed. Constitutional: Appearance: She is obese. Pulmonary: Effort: Pulmonary effort is normal. Neurological: Mental Status: She is alert. Psychiatric: Mood and Affect: Mood normal. Behavior: Behavior normal. Thought Content: Thought content normal. Judgment: Judgment normal. Assessment/Plan Olga was seen today for ear fullness. Diagnoses and all orders for this visit: Benign paroxysmal positional vertigo, unspecified laterality Other orders - predniSONE (DELTASONE) 20 mg tablet; Take 1 tablet (20 mg total) by mouth in the morning for 7 days. She is to continue the meclizine No driving while symptomatic She is not currently working so that isn't a factor right now Will add back prednisone but will do so for 7 days Stay hydrated and rest She had a similar occurrence 2 years ago, she does have her lillie maneuvers from that time; recommended she resume those May also use flonase nasal spray Video Visit via Real-time Synchronous Audiovisual Provider Location: [facility] [address] [facility] [id number] Patient Location: Patient's home Video Visit Consent Statement: I discussed risks, benefits, and alternatives of a real-time synchronous audiovisual consultation with the patient (and any accompanying persons) including the risks that the patient's personal health details and medical records will be discussed over real-time, synchronous, interactive video/audio/telecommunication technology, the visit will not be recorded withoutthe express consent of both the provider and the patient, and that there are some limitations compared to ifgy-fr-zuoy evaluations. The patient consented to the presence of additional virtual and/or in-person participants. We elected to proceed. DEMARIO Escalante 04/16/24 [id number] documented in this encounterKind[facility]03-27-[facility]24 History of Present illness Narrative* Marly Mckeon, JACOB - 02/26/2024 1:40 PM EDT [address] [place] [address] Patient: Olga Xiao Date of : 1980 Encounter Date: 02/26/2024 History of Present Illness: The patient is a 43 y.o. female, an established patient, and is here for Chief Complaint Patient presents with Weight Loss . HPI Patient is here to discuss GLP 1 inhibitor initiation. She is interested in using Ozempic and paying aku-zl-vvoayy through compound pharmacy- [facility]. She was told to come to the office to discuss mechanism of action and side effects and get demonstration of how to inject. She was given sample from the office today and shown how to do this. Patient is making diet changes that are healthier and cutting down on her portions and weightlifting several days out of the week. She feels like her energy levels are better and her muscles have been sore. She has 2 sick kids in the house currently that she has been exposed to and for the last 2 days she has had a headache and is wondering if she may be getting what her children have. Patient is also wondering if she maybe weaned off the metoprolol as she got this prescription in the hospital when she had COVID and it was helping with her racing heartbeat with anxiety after COVID.Since she is no longer feeling anxious on a daily basis and her emotions are better controlled she is wondering if she can get off of this as she feels it may be making her fatigued during exercise. Problem List Items Addressed This Visit Cardiovascular and Mediastinum Essential hypertension - Primary Relevant Medications metoprolol succinate XL (TOPROL XL) 25 mg 24 hr tablet Digestive Severe obesity (BMI >= 40) [place] Other Visit Diagnoses Fever, unspecified fever cause Relevant Orders POCT Influenza A/Influenza B/SARS-COV-2 Veritor Past Medical, Family, and Social History Update: The following portions of the patient's history were reviewed and updated as appropriate: allergies, current medications, past family history, past medical history, past social history, past surgicalhistory and problem list. Past Medical History: Diagnosis Date Anxiety Arrhythmia Fluttering Heart BMI 50.0-59.9, adult ([facility] Bone mass Right Femur Brain lesion Chronic alcoholic gastritis without hemorrhage Depression Difficulty swallowing Edema of left lower extremity Fluttering heart Gastric diverticulum GERD (gastroesophageal reflux disease) History of esophageal dilatation Hypertension Hypertriglyceridemia Lumbar radiculopathy Metabolic syndrome Neuralgia of left lower extremity Paresthesia of skin Peptic ulceration Primary osteoarthritis of right knee Shortness of breath Tachycardia Tonsillar hypertrophy Traumatic arthritis of left knee Past Surgical History: Procedure Laterality Date ADENOIDECTOMY CHOLECYSTECTOMY ESOPHAGOGASTRODUODENOSCOPY LUMBAR PUNCTURE PARTIAL HYSTERECTOMY Current Outpatient Medications Medication Sig Dispense Refill hydroCHLOROthiazide (HYDRODIURIL) 12.5 mg tablet take 1 tablet by mouth once daily 90 tablet 0 ketoconazole (NIZORAL) 2 % shampoo Apply 1 Application topically 2 (two) times a week. Apply to damp skin, lather, leave on 5 minutes, and rinse 120 mL 1 loratadine (CLARITIN) 10 mg tablet Take 1 tablet (10 mg total) by mouth in the morning. meclizine (ANTIVERT) 25 mg tablet Take 1 tablet (25 mg total) by mouth 3 (three) times a day as needed for dizziness. 30 tablet 0 metoprolol succinate XL (TOPROL XL) 25 mg 24 hr tablet Take 1 tablet (25 mg total) by mouth in the morning. 60 tablet 1 ondansetron ODT (ZOFRAN ODT) 4 mg disintegrating tablet Dissolve 1 tablet (4 mg total) on tongue every 8 (eight) hours as needed for nausea or vomiting. 20 tablet 0 pantoprazole (PROTONIX) 40 mg EC tablet Take 1 tablet (40 mg total) by mouth in the morning. No current facility-administered medications for this visit. (All medications reviewed and updated by provider since last office visit or hospitalization) Allergies: Fish containing products, Penicillins, Vancomycin, Cefdinir, Biaxin [clarithromycin], Dilaudid [hydromorphone], E-mycin [erythromycin], and Hydrocodone Tobacco History: Social History Tobacco Use Smoking Status Never Smokeless Tobacco Never (If patient a smoker, smoking cessation counseling offered) Social History: Social History Substance and Sexual Activity Alcohol Use Not Currently Review of Systems: Review of Systems Constitutional: Positive for fatigue and unexpected weight change (7 lb weight loss- expected as she is exercising and eating healthy). HENT: Negative. Respiratory: Negative. Cardiovascular: Negative. Gastrointestinal: Negative. Neurological: Positive for headaches. Psychiatric/Behavioral: Negative for decreased concentration, dysphoric mood, self-injury, sleep disturbance and suicidal ideas. The patient is not nervous/anxious. Physical Exam: BP 140/80 (BP Site: Left Arm, BP Postition: Sitting) Pulse 77 Temp 37.2 C (99 F) (Oral) Resp 18 Ht 165.1 cm (5' 5 ) Wt (!) 176.2 kg (388 lb 6.4 oz) SpO2 99% BMI 64.63 kg/m Physical Exam Vitals reviewed. Constitutional: Appearance: She is obese. HENT: Head: Normocephalic. Cardiovascular: Rate and Rhythm: Normal rate and regular rhythm. Heart sounds: Normal heart sounds. No murmur heard. Pulmonary: Effort: Pulmonary effort is normal. Breath sounds: Normal breath sounds. Skin: General: Skin is warm. Capillary Refill: Capillary refill takes less than 2 seconds. Neurological: Mental Status: She is alert and oriented to person, place, and time. Gait: Gait normal. Psychiatric: Thought Content: Thought content normal. Judgment: Judgment normal. Assessment and Plan: Olga was seen today for weight loss. Diagnoses and all orders for this visit: Essential hypertension Fever, unspecified fever cause - POCT Influenza A/Influenza B/SARS-COV-2 Veritor Severe obesity (BMI >= 40) ([facility]) Other orders - metoprolol succinate XL (TOPROL XL) 25 mg 24 hr tablet; Take 1 tablet (25 mg total) by mouth in the morning. - ondansetron ODT (ZOFRAN ODT) 4 mg disintegrating tablet; Dissolve 1 tablet (4 mg total) on tongueevery 8 (eight) hours as needed for nausea or vomiting. Follow-up: Patient's blood pressure is borderline today she was encouraged to continue to check at home and aslong as more than 50% of her values are 130/80 or less this is acceptable. Will weaned down on her metoprolol to 25 mg daily and plan on stopping this at her 8 week checkup. Her COVID and flu swab was negative today. Side effects and mechanism of action of G LP 1 inhibitor were discussed and prescription was filledout and given to senior front end developer to fax to the compounding pharmacy. She should use the 0.25 mg dose of Ozempic for 4 weeks and then increase to 0.5 mg for 2 weeks And then use the 0.6 mg from the compounding pharmacy for an additional 4 weeks. She should contact office when she needs to increase the dose beyond this. Recheck her weight in the office in 8 weeks. JACOB GOMEZ APRN-CNP 02/26/24 1543 documented in this encounterKind[facility]01-16-[facility]24 History of Present illness Narrative* DEMARIO Escalante - 12/17/2023 3:00 PM EST Subjective Patient ID: Olga Xiao is a 43 y.o. female. In Mid-November came in as her blood pressure was up and she was experiencing a lot of stress When elevated it is generally in the 150s but the bottom number generally stays in the 70s - 80 She was supposed to start on lexapro but she didn't start it as she got covid and didn't want to start anything new Since then her blood pressure continues to go up and down and a few times she has taken the whole hctz instead of just half and for the most part this has helped Her blood pressure was elevated and she felt stressed so for three days in a row she took a whole one and felt really good until last evening and her blood pressure was down to 103 and she felt weak and her heart felt fluttery for awhile Today she did not take any as she was afraid to She has been doing well with her sleep machine and does wake up rested She continues to have a great deal of stress in her life and expects these issues to persist for many more months She also is having excessive drying of her skin around her upper forehead, and ears and her scalp is even dryer than usual, her usual head and shoulders is not working The following portions of the patient's history were reviewed and updated as appropriate: allergies, current medications, past family history, past medical history, past social history, past surgicalhistory, problem list, and medication reconciliation was completed including current medication andpost discharge medication. Review of Systems HENT: Negative. Respiratory: Positive for apnea (treated). Cardiovascular: Negative. Gastrointestinal: Negative. Skin: Positive for rash. Neurological: Positive for weakness and headaches (at times with elevated bp). Psychiatric/Behavioral: The patient is nervous/anxious. Objective Physical Exam Vitals and nursing note reviewed. Constitutional: Appearance: She is obese. HENT: Head: Normocephalic. Neck: Vascular: No carotid bruit. Cardiovascular: Rate and Rhythm: Normal rate and regular rhythm. Heart sounds: Normal heart sounds. No murmur heard. Pulmonary: Effort: Pulmonary effort is normal. Breath sounds: Normal breath sounds. Musculoskeletal: Right lower leg: No edema. Left lower leg: No edema. Lymphadenopathy: Cervical: No cervical adenopathy. Skin: Capillary Refill: Capillary refill takes less than 2 seconds. Findings: Rash present. Comments: Scalp is covered with flaking, drying The forehead has a scaled, flaking appearance And the ears both have some inflammation with flaking and drying Neurological: Mental Status: She is alert and oriented to person, place, and time. Gait: Gait normal. Psychiatric: Thought Content: Thought content normal. Judgment: Judgment normal. Assessment/Plan Olga was seen today for bp up. Diagnoses and all orders for this visit: Essential hypertension - Basic Metabolic Panel; Future Seborrhea capitis in adult Anxiety Obstructive sleep apnea Other orders - ketoconazole (NIZORAL) 2 % shampoo; Apply 1 Application topically 2 (two) times a week. Apply to damp skin, lather, leave on 5 minutes, and rinse Will check bmp today to ensure her potassium isn't low Recommend she continue with just 1/2 of hctz and if needed she can increase to a whole tablet but no more than every other day We discussed her anxeity at length - strongly encouraged her to start the lexapro even at 1/2 dose as she truly is very stressed and this seems to be impacting her and is affecting her blood pressureand ability to cope in general Lastly we addressed her seborrhea which has worsened and will try the ketoconazole for the scalp, she may try some selsun to t-gel on the ears and forehead but also avoid excessive long and hot showers, and fragranced soaps Will see her back in one month DEMARIO Escalante 12/17/23 1820 documented in this encounterDayton VA Medical CenterAs It Is Formerly [facility] [id number] Evaluation note* Encounter Date Diagnosis Assessment Notes Treatment Notes Treatment Clinical Notes May, Sore throat (ICD-10 - J02.9) May,Viral upper respiratory tract infection (ICD-10 - J06.9)Viral upper respiratory infection: adult home care material was printed Drink plenty fluids, get plenty of rest. Take Tylenol or Motrin as needed for aches pains or fevers. Continue home medications as prescribed. Follow-up with your family physician if no improvement in2 to 3 days [employer] Other 04-14-2023 History of Present illness Narrative* Jemima Combs RN - 03/15/2023 10:46 AM EDT Pt verbalized readiness to go home. Discharge instructions given to pt and . Verbalized understanding and all questions answered at this time. Discharge Criteria Inpatients must meet Criteria 1 through 7. All other patients are either YES or N/A. If a NO is chosen then Anesthesia or Surgeon must be notified. 1. Minimum 30 minutes after last dose of sedative medication, minimum 120 minutes after last dose of reversal agent. Yes 2. Systolic BP stable within 20 mmHg for 30 minutes & systolic BP between 90 & 180 or within 10 mmHg of baseline. Yes 3. Pulse between 60 and 100 or within 10 bpm of baseline. Yes 4. Spontaneous respiratory rate >/= 10 per minute. Yes 5. SaO2 >/= 95 or >/= baseline. Yes 6. Able to cough and swallow or return to baseline function. Yes 7. Alert and oriented or return to baseline mental status. Yes 8. Demonstrates controlled, coordinated movements, ambulates with steady gait, or return to baseline activity function. Yes 9. Minimal or no pain or nausea, or at a level tolerable and acceptable to patient. Yes 10. Takes and retains oral fluids as allowed. Yes 11. Procedural / perioperative site stable. Minimal or no bleeding. Yes 12. If GI endoscopy procedure, minimal or no abdominal distention or passing flatus. N/A 13. Written discharge instructions and emergency telephone number provided. Yes 14. Accompanied by a responsible adult. Yes * Sue Del Valle RN - 03/12/2023 11:07 AM EDT Message left for Adriel, [facility] hospitalist regarding possibility of ventilator support post operatively, per anesthesia request. * Marly Powell RN - 03/05/2023 8:40 AM EDT Sunita BARTON at Dr. Reed's office notified of SENIOR SOFTWARE QA ENGINEER's note regarding upcoming procedure. Pt is getting labs and CXR pre-op per Sunita * Kyle Yee RN - 03/04/2023 1:46 PM EDT Patient instructed on the pre-operative, intra-operative, and post-operative process. Patient's surgical procedure and day of surgery confirmed. Patient instructed on NPO status. Medication instructions reviewed with patient, patient to take metoprolol and protonix the morning of surgery with smallsip of water. CHG pre-operative wash instructions reviewed with patient. Pre operative instruction sheet reviewed with patient per PAT phone interview. Patient voiced understanding and denies any questions at this time. Patient voices many concerns of being nervous for surgery d/t her weight and post covid lung status. Patient states in Jul 2021 she was at home on oxygen d/t post covid problems. P atient states she feels much stronger now and is no longer requiring oxygen therapy but she has gained weight since then too. CXR order from Dr Reed in [facility], patient instructed to complete CXR after appt with Dr Reed on 03/05/23. Anesthesia to review chart d/t BMI > 60. * Marly Powell RN - 12/04/2022 12:43 PM EST Patient called PAT back and states she needs to reschedule procedure date. Sunita at Dr. Reed's office notified. * Marly Powell RN - 12/04/2022 12:41 PM EST Attempted PAT phone call; no answer; message left to return PAT phone call. * Marly Powell RN - 11/30/2022 2:10 PM EST Attempted PAT phone call; no answer; unable to leave a message. Voicemail is full documented in this encounterB[facility] [employer] Work Phone: 1(250) 833-797404-14-2023 Hospital Discharge instructions* Discharge Instructions* Jemima Combs RN - 03/15/2023 9:00 AM EDT SAME DAY SURGERY DISCHARGE INSTRUCTIONS 1. Do not drive or operate hazardous machinery for 24 hours. 2. Do not make important personal or business decisions for 24 hours. 3. Do not drink alcoholic beverages for 24 hours. 4. Do not smoke tobacco products for 24 hours. 5. Patient should not be left alone for 12-24 hours following surgical procedure. 6. Eat light foods (Jell-O, soups, etc....) and drink plenty of fluids (water, Sprite, etc...) up to 8 glasses per day, as you can tolerate. 7. If your bandages become soaked with bright red blood, place another dressing pad over your bandages. (DO NOT remove original bandage.) Call your surgeon for further instructions. A small amount ofbright red blood is to be expected. 8. Wash hands before and after incision care. It is important to practice good personal hygiene during the post op period. 9. You may remove your dressing the morning following surgery; leave the steri- strips in place, they will fall off on their own. If they have not fallen off in 7-10 days, please remove them. 10. If no drainage from incisions you may shower. 11. Limit your activities for 24 hours. Do not engage in heavy work until your surgeon gives you permission. DO NOT lift anything heavier than 10 pounds. You may go up & down stairs and do any activity that can be done comfortably. 12. Report the following signs or any questions regarding your physical condition to your surgeon immediately: Excessive swelling of, or around the wound area. Redness or pus-like drainage Temperature of 100 degrees (F) or above. Excessive pain. If unable to urinate 4 hours after surgery. If bleeding at surgery site continues after 5-10 minutes of pressure. 13. Pain Control: Take pain meds as prescribed. You may use over the counter meds like Acetaminophen or Ibuprofen if not part of the meds already prescribed. While on narcotic pain meds DO NOT drive, operate machinery or make business decisions. 14. Try to avoid constipation (no bowel movement) by using over the counter Colace once or twice daily and increasing your fluid intake. Please call if no bowel movement after increasing fluid intake, use of Milk of Magnesia, Pericolace (laxative) or Dulcolax suppositories. 15. No sexual activity, tampons, douches, sitting in hot tubs/saunas or swimming in pools/ponds for2 weeks or until cleared by your surgeon. 16. Call your surgeon for any questions regarding your surgery. 17. Call for an appointment to see your surgeon in [address] Sanders -- [place] office [phone] [place] office [phone] documented in this encounterBON LONG BEACH MEMORIAL MEDICAL CENTERLawn Love Phone: 1([phone]) 290-111207-24-2022 History of Present illness Narrative* Tiffanie Israel APRN.CNP - 06/24/2022 2:40 PM EDT Cancelled documented in this encounterMiddletown Hospital07-18-2022 Evaluation note* Encounter Date Diagnosis Assessment Notes Treatment Notes Treatment Clinical Notes Jun, Hemorrhoid (ICD-10 - K64.9) START ANUSOL HC CREAM BID FOR 14 DAYS Jun,UQ abdominal pain (ICD-10 - R10.11) Jun,GERD (gastroesophageal reflux disease) (ICD-10 - K21.9)RE START PANTOPRAZOLE Jun,Fatty liver (ICD-10 - K76.0)FIBROSCAN Jun,Morbid obesity (ICD-10 - E66.01) Jun,therREFERRAL TO WEIGHT MANAGEMENT STOP CARAFATE START AMITRIPTYLINE 50 MG AT BEDTIME [employer] Other 06-28-2022 Evaluation note* Encounter Date Diagnosis Assessment Notes Treatment Notes Treatment Clinical Notes May, Right sided abdominal pain (ICD- 10 - R10.9) [employer] Other 06-16-2022 Evaluation note* Encounter Date Diagnosis Assessment Notes Treatment Notes Treatment Clinical Notes May, Chronic gastritis wi thout bleeding, unspecified gastritis type (ICD-10 - K29.50) May,Gastroesophageal reflux disease, unspecified whether esophagitis present (ICD-10 - K21.9) May,Epigastric pain (ICD-10 - R10.13)PATIENT STATES THAT SHE IS DOING BETTER WITH THE MEDICATION. [employer] Other 02-08-2022 Evaluation note* Encounter Date Diagnosis Assessment Notes Treatment Notes Treatment Clinical Notes Jan, Right sided abdominal pain (ICD- 10 - R10.9) Jan,2Other irritable bowel syndrome (ICD-10 - K58.8) Jan,Gastritis without bleeding, unspecified chronicity, unspecified gastritis type (ICD-10 - K29.70) Jan,2OtherOBTAIN RECORDS FROM [facility] [place] Other Evaluation noteNo InformationNortLifecare Hospital of [facility] [place] Other Evaluation note* Diagnosis Procedure, test, or exam not indicated- Primary Procedure not carried out for other reasons documented in this encounter [facility] HospitalEvaluation noteNo assessment information [facility] Work Phone: Evaluation note* Diagnosis Pre-op chest exam Pre-operative respiratory examination Pre-op testing Preoperative examination, unspecified Pelvic pain COVID-19 long hauler manifesting chronic dyspnea Chronic pelvic pain in female Unspecified symptom associated with female genital organs documented in this encounter [facility] [employer] Work Phone: [email or web address] note* Diagnosis Post-op pain- Primary Other acute postoperative pain Pain Generalized pain documented in this encounter [employer] Phone: [email or web address] note* Diagnosis Essential hypertension- Primary Unspecified essential hypertension Hordeolum externum of left eye, unspecified eyelid documented in this encounter [facility] [employer] SystemEvaluation note* Diagnosis Essential hypertension- Primary Unspecified essential hypertension Class 3 severe obesity due to excess calories without serious comorbidity with body mass index (BMI) of 60.0 to 69.9 in adult [place] Encounter for screening mammogram for malignant neoplasm of breast Herpes zoster without complication documented in this encounter [facility] SystemEvaluation note* Diagnosis Essential hypertension- Primary Unspecified essential hypertension Seborrhea capitis in adult Anxiety Anxiety state, unspecified Obstructive sleep apnea Obstructive sleep apnea (adult) (pediatric) documented in this encounter [facility] SystemEvaluation note* Diagnosis Benign paroxysmal positional vertigo, unspecified laterality- Primary documented in this encounter [facility] SystemEvaluation note* Diagnosis Essential hypertension- Primary Unspecified essential hypertension Fever, unspecified fever cause Severe obesity (BMI >= 40) [place] documented in this encounter [facility] SystemEvaluation note* Diagnosis COVID-19- Primary documented in this encounter [facility] [employer] SystemEvaluation note* Diagnosis COVID-19- Primary documented in this encounter [facility] [employer] SystemEvaluation note* Diagnosis Pharyngitis, unspecified etiology- Primary Tonsillar hypertrophy Hypertrophy of tonsils alone documented in this encounter [facility] SystemEvaluation note* Diagnosis Herpes zoster conjunctivitis- Primary [facility]* Diagnosis Essential hypertension- Primary Unspecified essential hypertension Acute urticaria [facility]* Diagnosis Viral URI with cough- Primary Acute upper respiratory infections of unspecified site documented in this encounter [facility] general Narrative - Reported* Type Description Date Medical History gerd Medical HistorydepressionSurgical Historypartial hysterectomySurgical History cholecystectomySurgical HistoryadenoidectomyHospitalization Historysee above [employer] Other History general Narrative - Reported* Type Description Date Medical History gerd Medical HistorydepressionSurgical Historypartial hysterectomySurgical History cholecystectomySurgical HistoryadenoidectomySurgical Historylaparoscopy Hospitalization Historysee above [employer] Other Instructions* Attachments The following attachments cannot be sent through Care Everywhere. * High Blood Pressure Discharge Instructions (Polish) documented in this encounter[facility] SystemInstructionsNot on file documented in this encounterPrem[facility] [employer] SystemInstructionsNot on file documented in this encounterPrem[facility] [employer] SystemInstructionsNot on file documented in this encounterFisher[facility] SystemInstructionsNot on file documented in this encounterFisher[facility] SystemInstructionsNot on file documented in this encounterPrem[facility] [employer] SystemInstructionsNot on file documented in this encounterPremier [facility] [employer] SystemInstructionsNot on file documented in this encounterFisher-[facility] SystemInstructions* Attachments The following attachments cannot be sent through Care Everywhere. * Semaglutide, ADULT (Polish) documented in this encounterPrem[facility] [employer] SystemInstructionsNot on file documented in this encounterPremier [facility] [employer] SystemInstructionsNot on file documented in this encounterFisher[facility] SystemInstructions* Attachments The following attachments cannot be sent through Care Everywhere. * Shingles (Polish) documented in this encounterProSelect Medical [facility] SystemInstructionsNot on file documented in this encounterProSelect Medical [facility] SystemInstructionsNot on file documented in this encounterFisher[facility] SystemReason for referral (narrative)No reason for referral information availableAshtabula General Hospital Work Phone: Summary Purpose Family History Relationship Condition Age at Onset Recorded Date/T juan manuel Not Specified Heart disease Unknown Relationship Condition Age at Onset Recorded Date/T juan manuel mother Heart disease Unknown fatherDeceasedUnknownLiver diseaseUnknown Advance Directives TypeDate RecordedPatient RepresentativeExplanationAdvance Directive(s)01/03/2021 9:45 AM Advance Directive Response Recorded Date/ Time Advance Directives No November 07, 2020 10:19am Code StatusDate ActivatedDate InactivatedCommentsFull Code01/26/2019 10:40 AM 01/26/2019 5:25 PMCode StatusDate ActivatedDate InactivatedCommentsFull Code 03/15/2023 6:20 AMCode StatusDate ActivatedDate InactivatedCommentsFull Code 01/26/2019 10:40 AM01/26/2019 5:25 PM Advance Directive Response Recorded Date/ Time Advance Directives No November 07, 2020 9:19am Date ActivatedDate InactivatedComments07/05/2021 11:56 PM07/14/2021 5:48 PMCode StatusDate ActivatedDate InactivatedCommentsFull Code07/05/2021 11:56 PM07/14/2021 5:48 PM Chief Complaint and Reason for Visit Chief Complaint Fatty Liver Chief Complaint Cough, Congestion, s ore throat Chief Complaint Admit Date Cough, Congestion, sore throat September 022023 3:34pm left eye irritation December 19, 2024 1 1:02am Reason for Visit Admit Date Acute pharyngitis September 25, 2024 3 :34pm Chief Complaint Admit Date Cough, shortness of breath June 28 5:37pm Chief Complaint Admit Date Cough, shortness of breath June 28 5:37pm r06.June 28, 2025 6:10 pm Reason for Visit Admit Date Viral URI with cough June 28, 2025 5:3 7pm Chief Complaint Admit Date Cough, shortness of breath June 28 5:37pm r06.02 June 28, 2025 6:10 pm left ear pain July 13, 2025 11 :13am Chief Complaint Admit Date Cough, shortness of breath June 28 5:37pm r06.02 June 28, 2025 6:10 pm left ear pain July 13, 2025 11 :13am Chest congestion July 16, 2025 6: 10pm Reason for Visit Admit Date Viral URI with cough June 28, 2025 5:3 7pm Otitis media July 13, 2025 11 :13am Contact with or suspected ex posure to severe acute respiratory syndrome July 16, 2025 6:10pm Additional Source Comments INFORMATION SOURCE (unrecogn ized section and content) DATE CREATED AUTHOR 10/01/2021 [facility] DATE CREATED AUTHOR AUTHOR'S ORGANIZ ATION 01/16/2023 [facility] DATE CREATED AUTHOR AUTHOR'S ORGANIZ ATION 03/16/2023 [facility] DATE CREATED AUTHOR AUTHOR'S ORGANIZ ATION 12/19/2023 [facility] DATE CREATED AUTHOR AUTHOR'S ORGANIZ ATION 01/23/2025 [facility] DATE CREATED AUTHOR AUTHOR'S ORGANIZ ATION 01/31/2025 [facility] DATE CREATED AUTHOR AUTHOR'S ORGANIZ ATION 07/10/2025 [facility] DATE CREATED AUTHOR AUTHOR'S ORGANIZ ATION 09/24/2025 [facility] REASON FOR VISIT (unrecogniz ed section and content) ReasonCommentsAppointment CancelledSpecialtyDiagnoses / ProceduresReferred By ContactReferred To Contact Diagnoses Chronic pelvic pain in female PELVIC PAIN Procedures CA LAP,FULGURATE/EXCISE LESIONS LAPAROSCOPY EXPLORATORY- LYSIS OF ADHESIONS, ABLATION OF ENDOMETRIOSIS, REMOVE ESSURE COIL, POSSIBLE LEFT OOPHORECTOMY Sunita Woody, DO [address] [place] [address] [facility] [address] [place] [address] Referral IDStatusReasonStart DateExpiration DateVisits RequestedVisits [id number] lymp nodes ReasonCommentspressure in head when standingReasonCommentsbp UpReasonCommentsEar FullnessAnd spinning sensationReasonCommentsMed RefillReasonCommentsWeight Loss ReasonCommentsCoughCovid - 07/14 coughing every since.ReasonOnset DateComments Med [id number]-upFrom urgent care 09/25ReasonComments shinglesReasonCommentsHypertensionReasonOnset DateCommentsMed Akewiu3303/24/2025 ReasonCommentsCoughReasonOnset DateCommentsMed Dmsjeb6907/26/2025 Source Comments (unrecognize d section and content) In the event this informatio n is protected by the Federal Confidentiality of Alcohol and Drug Abuse Patient Records regulations: The Federal rules restrict any use of the information to criminally investigate or prosecute any alcohol or drug abuse patient.[facility] HospitalIn the event this information is protected by the Federal Confidentiality of Alcohol and Drug Abuse Patient Records regulations: The Federal rules restrict any use of the information to criminally investigate or prosecute any alcohol or drug abuse patient.[facility] Care Teams (unrecognized sec tion and content) Team Status: Active Member Role Status Dates Marco Antonio Munguia DO Primary Care Provider Active Team Status: Inactive Member Role Status Dates Marco Antonio Munguia DO Primary Care Provider Active Start: September 25, 2024 End: September 25Palak Simmons ProviderActiveStart: September 25, 2024 End: September 25, 2024Team MemberRelationshipSpecialtyStart DateEnd Date Dev Ballard II PCP - [facility]United [facility]nal Twejpzvy97/29/12 Team Status: Inactive Member Role Status Dates Marco Antonio Munguia DO Primary Care Provider Active Dean Rizzo DOAttscott ProviderActiveTeam MemberRelationshipSpecialtyStart DateEnd Date Dev Ballard MD [address] [place] [address] PCP - [facility]United [facility] Clinicnal Medicine02/27/18Team MemberRelationshipSpecialtyStart Date End Date Dev Ballard MD [address] [place] [address] PCP - [facility]02/27/18Team MemberRelationshipSpecialtyStart Date End Date Dev Ballard MD [address] [place] [address] PCP - [facility]02/27/18 Team Status: Inactive Member Role Status Dates Marco Antonio Munguia DO Primary Care Provider Active Start: December 19, 2024 End: December 19, 2024Palak Mireles ProviderActiveStart: December 19, 2024 End: December 19, 2024Team MemberRelationshipSpecialtyStart DateEnd Date Marco Antonio Munguia DO [address] [place] [address] [facility] - [facility]07/04/21Team MemberRelationshipSpecialtyStart DateEnd Date Marco Antonio Munguia DO [address], [place] [address] [facility] - [facility]07/04/21Team MemberRelationshipSpecialtyStart DateEnd Date Marco Antonio Munguia DO [address], [place] [address] PCP - GeneralFamily Medicine07/04/21Team MemberRelationshipSpecialtyStart DateEnd Date Marco Antonio Munguia DO [address], [place] [address] [facility] - [facility]07/04/21Team MemberRelationshipSpecialtyStart DateEnd Date Marco Antonio Munguia DO [address], [place] [address] PCP - [facility]07/04/21Team MemberRelationshipSpecialtyStart DateEnd Date Marco Antonio Munguia DO [address], [place] [address] PCP - [facility] Medicine07/04/21Team MemberRelationshipSpecialtyStart DateEnd Date Marco Antonio Munguia DO [address], [place] [address] [facility]07/04/21Team MemberRelationshipSpecialtyStart DateEnd Date Marco Antonio Munguia DO [address] [place] [address] PCP - [facility]mi Medicine07/04/21Team MemberRelationshipSpecialtyStart DateEnd Date Marco Antonio Munguia DO [address] [place] [address] PCP - [facility]07/04/21Team MemberRelationshipSpecialtyStart DateEnd Date Marco Antonio Munguia DO [address], [place] [address] PCP - [facility]07/04/21Team MemberRelationshipSpecialtyStart DateEnd Date Marco Antonio Munguia DO [address], [place] [address] PCP - [facility]07/04/21Team MemberRelationshipSpecialtyStart DateEnd Date Marco Antonio Munguia DO [address], [place] [address] PCP - [facility]07/04/21Team MemberRelationshipSpecialtyStart DateEnd Date Marco Antonio Munguia DO [address], [place] [address] PCP - [facility]07/04/21Team MemberRelationshipSpecialtyStart DateEnd Date Marco Antonio Munguia DO [address], [place] [address] PCP - [facility]07/04/21Team MemberRelationshipSpecialtyStart DateEnd Date Marco Antonio Munguia DO [address], [place] [address] PCP - [facility] Medicine07/04/21Team MemberRelationshipSpecialtyStart DateEnd Date Marco Antonio Munguia DO [address], [place] [address] [facility]Team MemberRelationshipSpecialtyStart DateEnd Date Marco Antonio Munguia DO [address], [place] [address] PCP - [facility]07/04/21Team MemberRelationshipSpecialtyStart DateEnd Date Dev Ballard II, MD PCP - [facility]fp[facility]yb09/29/12 Team Status: Inactive Member Role Status Dates Marco Antonio Munguia DO Primary Care Provider Active Start: June 28, 2025 End: June 28Palak Milton ProviderActiveStart: June 28, 2025 End: June 28, 2025 Team Status: Active Member Role Status Dates Marco Antonio Munguia DO Primary Care Provider Active Start: June 28, 2025 Palak Britton ProviderActiveStart: June 28, 2025 Team Status: Inactive Member Role Status Dates Marco Antonio Mugnuia DO Primary Care Provider Active Start: July 13, 2025 End: July 13, 2025Palak Mireles ProviderActiveStart: July 13, 2025 End: July 13, 2025 Team Status: Inactive Member Role Status Dates Marco Antonio Munguia DO Primary Care Provider Active Start: July 16, 2025 End: July 16Palak Milton ProviderActiveStart: July 16, 2025 End: July 16, 2025 Ordered Prescriptions (unrec ognized section and content) PrescriptionSigDispensedRefillsStart DateEnd Date HYDROcodone-acetaminophen (NORCO) 5-325 MG per tablet Indications:Post-op painTake 1 tablet by mouth every 6 hours as needed for Pain for up to 5 days. Intended supply: 5 days. Take lowest dose possible to manage pain Max Daily Amount: 4 tablets 6 tablet / ketorolac (TORADOL) 10 MG tablet Take 1 tablet by mouth every 6 hours as needed for Pain 20 tablet / Scheduled Active and Recently Administ ered Medications (unrecognized section and content) Medication Order/ acetaminophen (TYLENOL) tablet 650 mg (COMPLETED) 650 mg, Oral, ONCE, 1 dose, On Sat03/15/23 at 0645, Maximum dose of acetaminophen is 4000 mg from all sources in 24 hours., Pre-op (day of surgery) * 0658 (Given - Provider: Dagmar Ennis RN) dimenhyDRINATE (DRAMAMINE) tablet 50 mg (COMPLETED) 50 mg, Oral, ONCE, 1 dose, On Sat03/15/23 at 0645, Pre-op (day of surgery) * 0658 (Given - Provider: Dagmar Ennis RN) famotidine (PEPCID) injection 20 mg (COMPLETED) 20 mg, IntraVENous, ONCE, 1 dose, On Sat03/15/23 at 0645, Administer over 2 minutes., Pre-op (day of surgery) * 0809 (Given - Provider: Dagmar Ennis RN) levoFLOXacin (LEVAQUIN) 500 MG/100ML infusion 500 mg (COMPLETED) 500 mg, IntraVENous, APPLIANCE INSTALLER TO O.R., 1 dose, On Sat03/15/23 at 0645, Antimicrobial Indications: Surgical Prophylaxis, Administer within 1 hour prior to incision., Pre-op (day of surgery) * 0833 (Given - Provider: Levi Salcido RN) metronidazole (FLAGYL) 500 mg in 0.9% NaCl 100 mL IVPB premix (COMPLETED) 500 mg, IntraVENous, at 100 mL/hr, Administer over 60 Minutes, APPLIANCE INSTALLER TO O.R., On Sat03/15/23 at 0645, For 1 dose, Administer within 1 hour prior to incision., Pre-op (day of surgery) * 0810 (New Bag - Provider: Dagmar Ennis RN) * 0910 (Due: Stopped - Provider: Dagmar Ennis RN) ondansetron (ZOFRAN-ODT) disintegrating tablet 4 mg 4 mg, Oral, ONCE, 1 dose, On Sat03/15/23 at 1015, PACU & Post-op * 1015 (Due) scopolamine (TRANSDERM-SCOP) transdermal patch 1 patch 1 patch, TransDERmal, Administer over 72 Hours, ONCE, On Sat03/15/23 at 0745, For 1 dose, delivers 1 mg over 3 days. Apply patch to hairless area behind the ear. * 0728 (Patch Applied - Provider: Dagmar Ennis RN) sodium chloride flush 0.9 % injection 5-40 mL 5-40 mL, IntraVENous, EVERY 12 HOURS SCHEDULED (2 times per day), First dose on Sat03/15/23 at 0900, Until Discontinued, For Line Patency: Peripheral IV = 5 mL; Midline or Central Line = 10 mL/lumen.If following IV push medication, administer flush at same rate as the IV push. Flush volume is determined by type of infusion therapy being given. For non-viscous solutions use: Peripheral IV = 5 mL Midline or Central Line = 10 mL/lumen For viscous solutions (i.e. blood components, parenteral nutrition, contrast media, or after obtaining blood sample) use: Peripheral IV = 10 mL Midline or CentralLine = 20 mL/lumen, Pre-op (day of surgery) * 0811 (Not Given - Provider: Dagmar Ennis RN - Reason: IV Fluid Infusing) * 2100 (Due) Medication Order/// lactated ringers IV soln infusion IntraVENous, at 100 mL/hr, CONTINUOUS, Starting on Sat03/15/23 at 0645, Pre-op (day of surgery) * 0752 (New Bag - Provider: Swetha Hebert APRN - SENIOR SOFTWARE QA ENGINEER) * 0938 (Anesthesia Volume Adjustment - Provider: JACKIE Morillo CRNA) * 0943 (Stopped - Provider: Jemima Combs RN) lactated ringers IV soln infusion IntraVENous, at 125 mL/hr, CONTINUOUS, Starting on Sat03/15/23 at 1015, PACU only * 1015 (Due) Medication Order/// 0.9 % sodium chloride infusion IntraVENous, at 5-250 mL/hr, PRN, if patient receiving piggyback infusions and maintenance fluids are not ordered OR KVO fluids to protect IV site / prevent frequent line interruptions/ long duration, Starting on Sat03/15/23 at 0620, For piggyback infusion, administer at same rate as piggyback for a total of 25 mL. Enter 25 mL into dose field and piggyback rate into rate field of order. If piggyback is infusing at a rate less than 100 mL/hr, enter 25 mL into dose field and 100 mL/hr into rate field of order. For KVO fluids, enter rate of 20 mL/hr or less into rate field of order., Pre-op (dayof surgery) HYDROcodone-acetaminophen (NORCO) 5-325 MG per tablet 1 tablet (COMPLETED) 1 tablet, Oral, ONCE PRN, 1 dose, Starting on Sat03/15/23 at 0958, Until Sat03/15/23 at 1021, Pain Moderate (4-6), Maximum dose of acetaminophen is 4000 mg from all sources in 24 hours., PACU only * 1021 (Given - Provider: Jemima Combs RN) prochlorperazine (COMPAZINE) injection 10 mg 10 mg, IntraMUSCular, ONCE PRN, 1 dose, Starting on Sat03/15/23 at 0958, Until 03/16/23 at 0958,Nausea, Vomiting, Secondary antiemetic therapy., PACU only sodium chloride flush 0.9 % injection 5-40 mL 5-40 mL, IntraVENous, PRN, Starting on Sat03/15/23 at 0620, Until Discontinued, Line Care, After every IV line use, For Line Patency: Peripheral IV = 5 mL; Midline or Central Line = 10 mL/lumen. If following IV push medication, administer flush at same rate as the IV push. Flush volume is determined by type of infusion therapy being given. For non-viscous solutions use: Peripheral IV = 5 mL Midline or Central Line = 10 mL/lumen For viscous solutions (i.e. blood components, parenteral nutrition,contrast media, or after obtaining blood sample) use: Peripheral IV = 10 mL Midline or Central Line= 20 mL/lumen, Pre-op (day of surgery) Goals (unrecognized section and content) Goals may be documented in a n alternate section FOR RECORDS PERTAINING TO PATIENTS WHO ARE OR HAVE BEEN ENROLLED IN A CHEMICAL DEPENDENCY/SUBSTANCEABUSE PROGRAM, SOME INFORMATION MAY BE OMITTED. This clinical summary was aggregated from multiple sources. Caution should be exercised in using it in the provision of clinical care. This summary normalizes information from multiple sources, and as a consequence, information in this document may materially change the coding, format and clinical context of patient data. In addition, data may be omitted in some cases. CLINICAL DECISIONS SHOULD BE BASED ON THE PRIMARY CLINICAL RECORDS. [facility] [employer] [facility]. provides no warranty or guarantee of the accuracy or completeness of information in this document.
[2025-10-13 11:45] LABS: Hematocrit 39.1 % (36.0-48.0); Hemoglobin 13.2 g/dL (12.0-16.0); Immature Granulocytes Abs Auto 0.03 10^3/uL (0.00-0.03); Immature Granulocytes Pct Auto 0.3 % (0.0-0.5); Lymphocytes Absolute Auto 2.2 10^3/uL (1.2-3.8); Mean Corpuscular HGB Conc 33.8 g/dL (29.9-35.2); Mean Corpuscular Hemoglobin 27.8 pg (26.7-34.0); Mean Corpuscular Volume 82.5 fL (81.0-99.0); Platelet Count 294 10^3/uL (150-450); Red Blood Count 4.74 10^6/uL (4.20-5.40); White Blood Count 8.8 10^3/uL (4.0-11.0)
[2025-10-13 11:47] LABS: Glucose Urine UA NEGATIVE (NEGATIVE)
[2025-10-13 11:59] LABS: Alanine Aminotransferase 40 U/L (14-59); Albumin Globulin Ratio 0.8; Albumin Level 3.3 g/dL (3.4-5.0); Alkaline Phosphatase 94 U/L (46-116); Anion Gap 11.3; Aspartate Amino Transferase 25 U/L (15-37); Blood Urea Nitrogen 7.0 mg/dL (7.0-18.0); Calcium 8.7 mg/dL (8.5-10.1); Carbon Dioxide 28.0 mmol/L (21.0-32.0); Chloride 102 mmol/L (98-107); Estimated GFR (African America >60 (>=60 mL/min/1.73m^2); Estimated GFR (Non-African Ame >60 (>=60 mL/min/1.73m^2); Globulin 3.9 g/dL; Glucose 100 mg/dL (74-106); Lipase 15.0 U/L (16.0-77.0); Potassium 3.3 mmol/L (3.5-5.1); Sodium 138 mmol/L (136-145); Total Protein 7.2 g/dL (6.4-8.2)
[2025-10-13 12:09] LABS: Cast Seen? NONE SEEN #/LPF (NONE SEEN); Crystals Seen? None Seen #/HPF (None Seen); Urine Culture Indicated YES-FRMC
--- NOTE | 2025-10-13 12:11 | CT_ITS ---
The [address] [address] Patient Name: CAMRYN LEONARD MRN: [id number] date: 1980 Sex: F Assigned Patient Location: ER Current Patient Location: Accession/Order Number: [id number] Exam Date: 10/13/2025 12:18 Report Date: 10/13/2025 12:56 At the request of: LUDA TIJERINA DO Procedure: CT abdomen pelvis wo con CT ABDOMEN AND PELVIS WITHOUT CONTRAST COMPARISON: 04/29/2021 CLINICAL DATA: Right-sided abdominal pain for the past few days, greater at the lower quadrant. Diarrhea. History of Essure sterilization . Spiral axial unenhanced images were obtained through the abdomen and pelvis This CT exam was performed using one or more following dose reduction techniques: Automated exposure control, adjustment of the mA and/or kV according to patient size, or use of iterative reconstruction technique. Limited cuts through the lung bases show no contributory findings. Evaluation of the intra-abdominal organs is slightly limited by the absence of contrast. Fatty infiltration of the liver is suspected. There is prior cholecystectomy. No biliary dilatation or common duct stones are identified. The spleen, pancreas and adrenal glands show no acute findings. There are no renal calculi or hydronephrosis. The abdominal aorta is normal caliber. There are tiny lymph nodes. No ascites is present. Small bowel loops are normal caliber. There is a small amount of stool at the ascending and transverse colon. The left colon is underdistended. Subtle levoscoliotic curvature and mild degenerative changes are noted at the spine, greatest at the lumbosacral junction. Images through the pelvis show normal caliber small bowel. No appendiceal inflammation is seen. The distal colon contains minimal stool. There is no diverticular disease. The uterus is surgically absent. A 3 cm left adnexal hypodensity is now seen, possibly an ovarian cyst. There is some artifact related to body habitus and contact with the gantry. There is a residual Essure sterilization insert to the right of the sigmoid colon. The urinary bladder is poorly distended, limiting evaluation. There is no free or loculated pelvic fluid. No free air is noted. CT/CT abdomen pelvis wo con IMPRESSION: FATTY LIVER. NO BOWEL OR URINARY TRACT OBSTRUCTION. POSSIBLE 3 CM LEFT OVARIAN CYST. NO OTHER ACUTE FINDINGS. Impression dictated by: Natalie Blackmon M.D. 10/13/2025 12:56 PM Dictation Location: [place] [address] Electronically authenticated by: [id number] Y Date: 10/13/2025 12:56
--- NOTE | 2025-10-13 13:17 | ED_ITS ---
HPI HPI - General Adult General Chief complaint: Abdominal Pain Stated complaint: RT SIDE PAIN Time Seen by Provider: 10/13/25 11:07 Source: patient Mode of arrival: walk-in History of Present Illness HPI narrative: Patient is a 44-year-old female presenting to the emergency department for evaluation of abdominal pain. Patient states that over the last 3 days she has had intermittent episodes of right sided abdominal pain. She states she was having a diarrheal illness over the last few days, however this is starting to improve. She denies any vomiting. She states due to history of cholecystectomy and hysterectomy. She denies any chest pain or shortness of breath. No fevers or chills. 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 She thinks her pain may be related to this. Related Data Home Medications ?Medication ?Instructions ?Recorded ?Confirmed cholecalciferol (vitamin D3) 50 2,000 unit PO DAILY 10/13/25 mcg (2,000 unit) capsule (D3-1999) hydrochlorothiazide 12.5 mg tablet 12.5 mg PO DAILY 10/13/25 metoprolol succinate 50 mg 50 mg PO DAILY 10/13/2511/25 tablet,extended release 24 hr Allergies Allergy/AdvReac Type Severity Reaction Status Date / Time Penicillins Allergy Severe Anaphylaxis Verified 10/13/25 11:10 vancomycin AdvReac Intermediate Redness of Verified 10/13/25 11:10 Skin acetaminophen (From [place]) AdvReac Mild Redness of Verified 10/13/25 11:10 Skin hydrocodone (From [place]) AdvReac Mild Redness of Verified 10/13/25 11:10 Skin Opioid HPI Opioid Management Most Recent Opioid Data: Last Pain Scale 7 Today, 11:36 Review of Systems ROS Status of ROS 10 or more systems reviewed and unremark able except as noted in history and below PFSH PFSH Social History Little interest or pleasure in doing things: not at all Feeling down, depressed, or hopeless: not at all Exam Narrative Exam Narrative: CONSTITUTIONAL: Well-appearing, answering questions and following commands appropriately SKIN: Was warm and dry. EYES: Sclerae white. EARS, NOSE, THROAT: Moist oral mucosa. RESPIRATORY: Clear to auscultation bilaterally, no wheezes, crackles, or stridor, no use of accessory muscles CARDIOVASCULAR: Normal rate and regular rhythm. There is no S3, S4, murmur, rub. GASTROINTESTINAL: Abdomen is soft, nontender, nondistended. No rebound tenderness or guarding. MUSCULOSKELETAL: No peripheral edema. NEUROLOGIC: Patient is awake and alert. Facies were symmetrical. Constitutional Vital Signs, click to edit/add: Last Vital Signs Temp 98.2 F 10/13/25 11:12 Pulse 79 10/13/25 11:12 Resp 18 10/13/25 11:12 BP 146/93 H 10/13/25 11:12 Pulse Ox 99 10/13/25 11:12 O2 Del Method Room Air 10/13/25 11:12 Course Vital Signs Vital signs: Vital Signs Temperature 98.2 F 10/13/25 11:12 Pulse Rate 79 10/13/25 11:12 Respiratory Rate 18 10/13/25 11:12 Blood Pressure 146/93 H 10/13/25 11:12 Pulse Oximetry 99 10/13/25 11:12 Oxygen Delivery Method Room Air 10/13/25 11:12 Temperature 98.2 F 10/13/25 11:12 Pulse Rate 79 10/13/25 11:12 Respiratory Rate 18 10/13/25 11:12 Blood Pressure 146/93 H 10/13/25 11:12 Pulse Oximetry 99 10/13/25 11:12 Oxygen Delivery Method Room Air 10/13/25 11:12 Medical Decision Making MDM Narrative Medical decision making narrative: Patient is a 44-year-old female presenting to the emergency department with a 3-day history of intermittent right-sided abdominal pain and diarrhea. Her vital signs are within normal limits. She is afebrile and hemodynamically stable. Differential diagnose include nephrolithiasis, diarrheal illness, interval bowel syndrome, or other intra-abdominal pathologies. IV was established and laboratory studies were obtained. CT abdomen/pelvis was ordered. CT abdomen/pelvis independently reviewed and interpreted by myself and radiology demonstrated no acute intra-abdominal process. Laboratory studies were unremarkable. No significant electrolyte or metabolic derangement. No evidence of acute kidney injury. No anemia, leukocytosis, or thrombocytopenia. No transaminitis or hyperbilirubinemia. Urinalysis was a contaminated specimen, overall looked noninfected. I do believe the patient is stable for discharge. They were instructed to follow up with her PCP for further care. Return precautions were given including any new or worsening symptoms. Patient understands and agrees to the plan. FINAL IMPRESSION: #Acute abdominal pain and diarrhea DISPOSITION: Discharged home CONDITION: Good Lab Data Lab results reviewed: Yes I reviewed the patient's lab results Labs: Lab Results 10/13/25 10/13/25 Range/Units 11:20 11:34 WBC 8.8 (4.0-11.0) 10^3/uL RBC 4.74 (4.20-5.40) 10^6/uL Hgb 13.2 (12.0-16.0) g/dL Hct 39.1 (36.0-48.0) % MCV 82.5 (81.0-99.0) fL MCH 27.8 (26.7-34.0) pg MCHC 33.8 (29.9-35.2) g/dL RDW 13.4 (11.0-15.0) % Plt Count 294 (150-450) 10^3/uL MPV 9.6 (9.5-13.5) fL Neut % (Auto) 68.8 (43.0-75.0) % Lymph % (Auto) 25.2 (20.5-60.0) % [place] % (Auto) 4.5 (1.7-12.0) % Eos % (Auto) 1.0 (0.9-7.0) % Baso % (Auto) 0.2 (0.2-2.0) % Neut # (Auto) 6.1 (1.4-6.5) 10^3/uL Lymph # (Auto) 2.2 (1.2-3.8) 10^3/uL [place] # (Auto) 0.4 (0.3-0.8) 10^3/uL Eos # (Auto) 0.1 (0.0-0.7) 10^3/uL Baso # (Auto) 0.0 (0.0-0.1) 10^3/uL Abs Immat Gran (auto) 0.03 (0.00-0.03) 10^3/uL Imm/Tot Granulo (auto) 0.3 (0.0-0.5) % Sodium 138 (136-145) mmol/L Potassium 3.3 L (3.5-5.1) mmol/L Chloride 102 (98-107) mmol/L Carbon Dioxide 28.0 (21.0-32.0) mmol/L Anion Gap 11.3 BUN 7.0 (7.0-18.0) mg/dL Creatinine 0.63 (0.55-1.02) mg/dL Est GFR ( Amer) >60 (>=60 mL/min/1.73m^2) Est GFR (Non-Af Amer) >60 (>=60 mL/min/1.73m^2) BUN/Creatinine Ratio 11.1 Glucose 100 (74-106) mg/dL Calcium 8.7 (8.5-10.1) mg/dL Total Bilirubin 0.5 (0.2-1.0) mg/dL AST 25 (15-37) U/L ALT 40 (14-59) U/L Alkaline Phosphatase 94 (46-116) U/L Total Protein 7.2 (6.4-8.2) g/dL Albumin 3.3 L (3.4-5.0) g/dL Globulin 3.9 g/dL Albumin/Globulin Ratio 0.8 Lipase 15.0 L (16.0-77.0) U/L Urine Color Lt. yellow (YELLOW) Urine Clarity Clear (CLEAR) Urine pH 6.0 (5.0-9.0) Ur Specific [place] 1.015 (1.005-1.025) Urine Protein Negative (NEG/TRACE) mg/dL Urine Glucose (UA) Negative (NEGATIVE) mg/dL Urine Ketones Negative (NEGATIVE) mg/dL Urine Occult Blood Negative (NEGATIVE) Urine Nitrite Negative (NEGATIVE) Urine Bilirubin Negative (NEGATIVE) Urine Urobilinogen 0.2 (0.2-1.0) EU/dL Ur Leukocyte Esterase Negative (NEGATIVE) Urine RBC 0-2 (0-2) #/HPF Urine WBC 0-2 A (NONE SEEN) #/HPF Ur Squamous Epith Cells Many A (NONE/RARE) #/LPF Urine Crystals None seen (None Seen) #/HPF Urine Bacteria Large A (NONE SEEN) #/HPF Urine Casts None seen (NONE SEEN) #/LPF Urine Mucus Trace A (NONE SEEN) Ur Culture Indicated? [place] [place] CT scan - abdomen: Attestation: I personally reviewed and interpreted this imaging study as edu ochoa: Radiologist's impression: ITS Impressions Abdomen/Pelvis CT 10/13/25 12:11 IMPRESSION: FATTY LIVER. NO BOWEL OR URINARY TRACT OBSTRUCTION. POSSIBLE 3 CM LEFT OVARIAN CYST. NO OTHER ACUTE FINDINGS. Impression dictated by: Natalie Blackmon M.D. 10/13/2025 12:56 PM Dictation Location: [place] [address] Electronically authenticated by: [id number] Y Date: 10/13/2025 12:56 Discharge Plan Discharge Chief Complaint: Abdominal Pain Clinical Impression: Abdominal pain Patient Disposition: Home, Self-Care Time of Disposition Decision: 13:03 Condition: Good Mode of Transportation: Private Vehicle Prescriptions / Home Meds: No Action hydrochlorothiazide 12.5 mg tablet 12.5 mg PO DAILY metoprolol succinate 50 mg tablet extended release 24 hr 50 mg PO DAILY cholecalciferol (vitamin D3) [D3-2000] 50 mcg (2,000 unit) capsule 2,000 unit PO DAILY Print Language: Tamazight Instructions: Abdominal Pain (ED) Referrals: MAGALY MUNGUIA [Primary Care Provider, Family Practice] - 1 week
[2025-10-13 13:51] VITALS: BP 138/74; PULSE 75; O2SAT 99
== END 2025-10-13 13:51 | disposition home or self-care (01) ==
PROVIDERS: Emergency Provider Student in an Organized Health Care Education/Training Program; PCP Family Medicine
DX: R10.9 Unspecified abdominal pain (principal); Z90.49 Acquired absence of other specified parts of digestive tract; Z90.710 Acquired absence of both cervix and uterus
CPT/HCPCS: 36415; 74176; 80053; 81001; 83690; 85025; 87086; 99284